=== PATIENT | female | born 1940 | race Caucasian/White ===

== ENCOUNTER 2018-07-04 20:07 | Inpatient (IN) | payer MEDICARE ==
[~2018-07-04] VITALS: Ht 162.6 cm; Wt 103.6 kg
[~2018-07-04 20:07] MED LIST: ACTOS PO; ACTOS30 MG PO; DIGOXIN125 MCG PO; EXFORGE 10-3201 EACH PO; GLIMEPIRIDE4 MG PO; HYDRALAZINE HCL50 MG PO; HYDROCHLOROTH12.5 MG PO; INVOKANA PO; KOMBIGLYZE XR1 EAC1 PO; LASIX20 MG PO; LOVASTATIN40 MG PO; ONGLYZA5 MG PO; PLAVIX75 MG PO; POTASSIUM CHLOR8 ME1 PO; TOPROL XL50 MG PO; TRADJENTA5 MG PO
--- NOTE | 2018-07-04 21:35 | NUR ---
RADIOLOGY AT BEDSIDE AT THIS TIME.
--- NOTE | 2018-07-04 22:13 | Diagnostic Imaging Report ---
EXAMINATION: CHEST SINGLE (PORTABLE) INDICATION: sob COMPARISON: None FINDINGS: AP view TUBES and LINES: Left chest wall dual-lead cardiac pacing device. LUNGS: Interstitial and bibasilar airspace opacities. PLEURA: Small bilateral pleural effusions. No pneumothorax. HEART AND MEDIASTINUM: Mild to moderate enlargement of the cardiac silhouette. There are atherosclerotic calcifications within the aorta. BONES AND SOFT TISSUES: No acute osseous lesion. Soft tissues are unremarkable. UPPER ABDOMEN: No free air under the diaphragm. IMPRESSION: Cardiomegaly with interstitial edema and small bilateral pleural effusions. Signed by: DR. Tam Alvarez MD on 07/04/2018 10:10 PM
[2018-07-04 23:24] LABS: BASOPHILS % 0.3 % (0.0-1.0); EOSINOPHILS # (AUTO) 0.1 (0.0-0.4); EOSINOPHILS % 0.9 % (0.0-6.0); HEMATOCRIT 34.5 % (34.2-44.1); HEMOGLOBIN 10.9 g/dL (12.0-16.0); LYMPHOCYTES % 10.3 % (18.0-39.1); MEAN CORPUSCULAR HEMOGLOBIN 28.1 pg (28-32); MEAN CORPUSCULAR HGB CONC 31.6 g/dL (31-35); MEAN CORPUSCULAR VOLUME 88.9 fL (81-99); MONOCYTES # (AUTO) 0.8 (0.2-0.8); MONOCYTES % 8.6 % (4.4-11.3); NEUTROPHILS # (AUTO) 7.3 (2.1-6.9); NEUTROPHILS % 79.7 % (38.7-80.0); PLATELET COUNT 244 x10e3/uL (140-360); RED BLOOD COUNT 3.88 x10e6/uL (3.6-5.1)
[2018-07-04 23:32] LABS: COLOR,URINE YELLOW (YELLOW)
[2018-07-04 23:33] LABS: BILIRUBIN,URINE NEGATIVE (NEGATIVE); CLARITY,URINE CLEAR (CLEAR); KETONES,URINE NEGATIVE (NEGATIVE); LEUKOCYTE ESTERASE ,URINE 1+ (NEGATIVE); NITRITE,URINE NEGATIVE (NEGATIVE); PROTEIN,URINE DIPSTICK TRACE (NEGATIVE); URINE UROBILINOGEN 0.2 mg/dL (0.2 - 1)
[2018-07-04 23:36] LABS: BACTERIA,URINE FEW /HPF; EPITHELIAL CELLS,URINE MANY /LPF; RBC,URINE 0-5 /HPF (0-5)
[2018-07-04 23:37] LABS: YEAST,URINE FEW
[2018-07-04 23:48] LABS: ALBUMIN 3.2 g/dL (3.5-5.0); ALBUMIN/GLOBULIN RATIO 0.8 (0.8-2.0); ANION GAP 12.7 mmol/L (8-16); CALCIUM 9.2 mg/dL (8.4-10.2); CREATININE, SERUM 1.15 mg/dL (0.57-1.11); POTASSIUM 3.7 mmol/L (3.5-5.1)
[2018-07-05] VITALS (9 sets, daily range): BP systolic 137–181; BP diastolic 63–77
[2018-07-05] MEDS ORDERED: FUROSEMIDE INJ 10 MG/ML 4 ML VIAL IV ONE (00:15)
[2018-07-05] MEDS ORDERED: SODIUM CHLORIDE FLUSH 10 ML SYR INJ PRN (00:15)
[2018-07-05] MEDS ORDERED: ONDANSETRON HCL INJ 2MG/ML 2ML 2 MG/ML VIAL IV PRN (00:15)
[2018-07-05] MEDS ORDERED: DEXTROSE 50% SYRINGE 50 ML IV PRN (00:15)
--- OUTSIDE RECORDS SUMMARY | 2018-07-05 00:21 | XMS REPORT ---
Author [facility] Address Unknown Phone Unavailable Care Team Providers Care Fraud Prevention Analyst Name Role Phone Yisel QUEEN Unavailable Unavailable Problems This patient has no known problems. Allergies, Adverse Reactions, Alerts This patient has no known allergies or adverse reactions. Medications This patient has no known medications. Results Test Description Test Time Test Comments Text Results Atomic Results Result Comments CHEST SINGLE (PORTABLE) 2018-07-04 22:08:00 [place] [address] Patient Name: GLENDA VALDES MR #: [id number] : 1940 Age/Sex: 77/F Req #: [id number] Adm Physician: Ordered by: DUONG QUEEN MD Report #: [id number] Location: ER Room/Bed: Procedure: [id number] DX/CHEST SINGLE (PORTABLE) Exam Date: 07/04/18 Exam Time: 2129 REPORT STATUS: Signed EXAMINATION: CHEST SINGLE (PORTABLE) I NDICATION: sob COMPARISON: None FINDINGS: AP view TUBES and LINES: Left chest wall dual-lead cardiac pacing device. LUNGS: Interstitial and bibasilar airspace opacities. PLEURA: Small bilateral pleural effusions. No pneumothorax. HEART AND MEDIASTINUM: Mild to moderate enlargement of the cardiac silhouette. There are atherosclerotic calcifications within the aorta. BONES AND SOFT TISSUES: No acute osseous lesion. Soft tissues are unremarkable. UPPER ABDOMEN: No free air under the diaphragm. IMPRESSION: Cardiomegaly with interstitial edema and small bilateral pleural effusions. Signed by: DR. Tam Alvarez MD on 07/04/2018 10:10 PM Dictated By: TAM ALVAREZ MD 09 Transcribed By: MICHELLE on 07/04/182209 COPY TO: DUONG QUEEN MD
[2018-07-05] MEDS: CEFTRIAXONE SOD 1 GM/NS 50 ML 50 ML IV SCH (00:55)
--- NOTE | 2018-07-05 01:45 | NUR ---
PATIENT RECEIVED FROM EMERGENCY ROOM VIA STRETCHER. ALERT AND ORIENTED. PATIENT IS PLEASANT AND CONVERSANT. O2 AT 3L/MIN VIA NASAL CANNULA. ASSISTED IN BED. ORIENTED TO ROOM. CALL LIGHT WITHIN REACH AND INSTRUCTED TO USE WHEN NEEDED.
[2018-07-05] MEDS: ALBUTEROL/IPRATROPIUM 3 ML NEB NEB SCH ×6 (02:11→23:19)
--- NOTE | 2018-07-05 06:30 | NUR ---
KITCHEN MADE AWARE OF 1L FLUID RESTRICTION FOR PATIENT.
[2018-07-05] MEDS ORDERED: AMLODIPINE PO SCH (06:45)
[2018-07-05] MEDS ORDERED: VALSARTAN PO SCH (06:45)
[2018-07-05] MEDS: INSULIN REGULAR, HUMAN 100 UNIT/1 ML 3ML VIAL SQ SCH ×4 (07:30→21:00)
--- NOTE | 2018-07-05 07:45 | History and Physical ---
The patient is a 77-year-old female comes with extremity weakness and shortness of breath. HISTORY OF PRESENT ILLNESS: Ms. Shane Duran with a history of CHF, history of pacemaker, was in her usual state of health until the patient was extremely weak and could not stand up, but did have some shortness of breath. Ambulation was difficult and was not able to walk from her bed to the bathroom with a walker. EMS was activated and the patient comes in with exacerbation of congestive heart failure. PAST MEDICAL HISTORY: History of CHF, history of pacemaker placement, history of sick sinus syndrome, history of hypertension, history of diabetes mellitus, and hyperlipidemia. MEDICATIONS: Include Exforge 10/320 mg once a day, clopidogrel 75 mg daily, digoxin 125 mcg, Lasix 20 mg daily, glimepiride 4 mg daily, hydralazine 100 mg 3 times a day, hydrochlorothiazide 12.5 mg daily, Tradjenta 5 mg daily, lovastatin 40 mg daily, and Toprol-XL 50 mg daily. The patient also takes Invokana 100 mg daily. PAST SURGICAL HISTORY: Includes history of left knee replacement, hysterectomy, cholecystectomy, and history of pacemaker placement. SOCIAL HISTORY: No EtOH. No IV drug abuse. Lives at home. Uses a walker to ambulate. No smoking history either. ALLERGIES: NO KNOWN DRUG ALLERGIES. REVIEW OF SYSTEMS: Negative for chest pain. Positive for some shortness of breath. Positive for extreme weakness, fatigue, and tiredness. No nausea, vomiting, or diarrhea. No constipation. No rectal bleeding. No hematochezia. No hematemesis. No diplopia. No blurry vision. No paresthesias. No hyperesthesia either. PHYSICAL EXAMINATION: VITAL SIGNS: Temperature is 96.7, pulse of 67, respirations of 19, blood pressure is 149/66, pulse oximetry of 91% on 4 L of oxygen. GENERAL: The patient is morbidly obese, using accessory muscles. HEENT: Normocephalic, atraumatic. CVS: S1, S2 normal. NECK: No JVD present. LUNGS: Decreased air entry into all lung bases. Positive for crackles in lower bases. HEART: Regular rate and rhythm. ABDOMEN: Nontender, nondistended. EXTREMITIES: No clubbing, no cyanosis, and 2+ edema present. NEUROLOGIC: Alert and oriented x3. No sensory motor deficits noted. IMAGING: EKG paced rhythm, wide QRS complex, and intraventricular conduction delay noticed. LABORATORY DATA: The patient's laboratory values, sodium is 140, potassium 3.7, BUN of 39, creatinine of 1.15. Alkaline phos is 189 with a BNP of 1005. Liver enzymes are normal and first set of cardiac enzymes has been normal. Hematology, white count is 9.20, hemoglobin of 10.9, hematocrit of 34.5. Urine showed 11 to 20 white count, nitrites and leuko esterase 1 positive. Chest x-ray shows cardiomegaly with interstitial edema and small bilateral pleural effusions. ASSESSMENT: 1. Acute exacerbation of congestive heart failure, [id number] systolic heart failure. Out plan is to continue with diuresis. 2. Acute kidney injury in setting of chronic kidney injury. We will continue to monitor her creatinine level. 3. Anemia of chronic disease. We will continue to check her iron level. 4. Hypertension, hyperlipidemia, and diabetes mellitus. We will continue with her home medications. Put her on insulin sliding scale. Strict I's and O's will be instituted and the patient will be on a low-salt diet and also fluid restriction. We will continue to monitor the patient on echocardiogram and also consult Dr. Ishmael Kamara, who is her locomotive pipe fitter. The patient does have positive urine nitrites. The patient has been put on antibiotics. She is on ceftriaxone q.24 hours 1 g. We will continue monitoring her microbiology status with urine cultures. Further recommendation and clinical course, the patient will be per inpatient and possible discharge in 1 to 2 days depending on the fluid balance. MD GAL Kearney/MODL /[id number]
[2018-07-05] MEDS ORDERED: VALACYCLOVIR HCL 500 MG TAB PO SCH (09:00)
[2018-07-05] MEDS: VALSARTAN 160 MG TAB PO SCH (09:28)
[2018-07-05] MEDS: FUROSEMIDE INJ 10 MG/ML 4 ML VIAL IV SCH ×2 (09:28→21:52)
[2018-07-05] MEDS: VANCOMYCIN 1GM/NS 250 ML 250 ML IV SCH (09:28)
[2018-07-05] MEDS: HYDRALAZINE HCL 100 MG TABLET PO SCH ×3 (09:29→21:52)
[2018-07-05] MEDS: METOPROLOL SUCCINATE 50 MG TAB XL PO SCH ×2 (09:29→17:40)
[2018-07-05] MEDS: CLOPIDOGREL BISULFATE 75 MG TAB PO SCH (09:29)
[2018-07-05] MEDS: SIMVASTATIN 20 MG TAB PO SCH (09:29)
[2018-07-05] MEDS: DIGOXIN 0.125 MG TAB PO SCH (09:29)
[2018-07-05] MEDS ORDERED: METOPROLOL TARTRATE INJ 1 MG/ML VIAL IV PRN (12:30)
[2018-07-05] MEDS ORDERED: HYDRALAZINE HCL 20 MG/ML VIAL IV PRN (12:30)
[2018-07-05 13:22] LABS: CHOL/HDL RATIO 2.9 (3.0-3.6); MAGNESIUM 1.8 MG/DL (1.3-2.1)
[2018-07-05 13:41] LABS: THYROID STIMULATING HORMONE 2.394 uIU/mL (0.350-4.940)
[2018-07-05 18:47] LABS: CREATINE KINASE MB 3.8 ng/mL (0-5.0)
[2018-07-05] MEDS: AMLODIPINE BESYLATE 10 MG TAB PO SCH (21:52)
[2018-07-06] VITALS (8 sets, daily range): BP systolic 117–150; BP diastolic 54–67
[2018-07-06] MEDS: CEFTRIAXONE SOD 1 GM/NS 50 ML 50 ML IV SCH (00:30)
[2018-07-06] MEDS ORDERED: SODIUM CHLORIDE 0.9% 250ML 250 ML ONE (00:34)
[2018-07-06] MEDS: ALBUTEROL/IPRATROPIUM 3 ML NEB NEB SCH ×6 (03:00→23:10)
[2018-07-06 05:53] LABS: BASOPHILS % 0.2 % (0.0-1.0); EOSINOPHILS # (AUTO) 0.1 (0.0-0.4); EOSINOPHILS % 1.3 % (0.0-6.0); HEMATOCRIT 33.3 % (34.2-44.1); HEMOGLOBIN 10.4 g/dL (12.0-16.0); LYMPHOCYTES # (AUTO) 0.8 (1.0-3.2); LYMPHOCYTES % 9.3 % (18.0-39.1); MEAN CORPUSCULAR HEMOGLOBIN 28.2 pg (28-32); MEAN CORPUSCULAR HGB CONC 31.2 g/dL (31-35); MEAN CORPUSCULAR VOLUME 90.2 fL (81-99); MONOCYTES # (AUTO) 0.8 (0.2-0.8); MONOCYTES % 9.6 % (4.4-11.3); NEUTROPHILS # (AUTO) 6.5 (2.1-6.9); NEUTROPHILS % 79.2 % (38.7-80.0); PLATELET COUNT 223 x10e3/uL (140-360); RED BLOOD COUNT 3.69 x10e6/uL (3.6-5.1); RED CELL DISTRIBUTION WIDTH 15.3 % (11.7-14.4)
[2018-07-06 06:11] LABS: CALCIUM 9.1 mg/dL (8.4-10.2); CREATININE, SERUM 1.07 mg/dL (0.57-1.11)
[2018-07-06 06:37] LABS: FREE THYROXINE INDEX 2.6617 (1.4-3.8); THYROID STIMULATING HORMONE 3.008 uIU/mL (0.350-4.940)
[2018-07-06] MEDS: INSULIN REGULAR, HUMAN 100 UNIT/1 ML 3ML VIAL SQ SCH ×4 (07:30→20:58)
[2018-07-06] MEDS: METOPROLOL SUCCINATE 50 MG TAB XL PO SCH ×2 (09:35→16:49)
[2018-07-06] MEDS: VALSARTAN 160 MG TAB PO SCH (09:35)
[2018-07-06] MEDS: VANCOMYCIN 1GM/NS 250 ML 250 ML IV SCH (09:35)
[2018-07-06] MEDS: SIMVASTATIN 20 MG TAB PO SCH (09:35)
[2018-07-06] MEDS: DIGOXIN 0.125 MG TAB PO SCH (09:35)
[2018-07-06] MEDS: FUROSEMIDE INJ 10 MG/ML 4 ML VIAL IV SCH ×2 (09:35→20:57)
[2018-07-06] MEDS: CLOPIDOGREL BISULFATE 75 MG TAB PO SCH (09:35)
[2018-07-06] MEDS: HYDRALAZINE HCL 100 MG TABLET PO SCH ×3 (09:35→20:57)
--- NOTE | 2018-07-06 10:21 | Progress Note ---
DATE: SUBJECTIVE: The patient is admitted to the hospital for acute exacerbation of congestive heart failure. The patient is currently asymptomatic. The patient is on 3L of oxygen. No chest pain noted. No nausea, vomiting, or diarrhea. No headaches. OBJECTIVE: VITAL SIGNS: Temperature is 98.4, pulse of 64, respirations of 18, and blood pressure is 137/63. The patient is saturating at 94% to 95% on 3 L of nasal cannula. HEENT: Normocephalic and atraumatic. Pupils are reactive. CVS: S1 and S2 normal. No JVD present. LUNGS: Decreased air entry. Positive for crackles at lung bases. Positive for . ABDOMEN: Nontender and nondistended. EXTREMITIES: Positive for 2+ edema. MEDICATIONS: 1. Rocephin. 2. Amlodipine. 3. Hydralazine. 4. Furosemide. 5. Insulin. 6. Metoprolol. 7. Simvastatin. 8. Digoxin. 9. . 10. Vancomycin. One dose given of her vancomycin and hydralazine as needed. LABORATORY VALUES: White count is 8.20, hemoglobin of 10.4, and hematocrit of 33.3. Chemistries are pending. Toxicology, digoxin level 0.87. Urine was positive for leukocyte esterase. Echocardiogram shows an EF of 60% with concentric LVH, pleural effusion, mild MR, AK, and [id number]-tclbcbrn tricuspid regurgitation. ASSESSMENT AND PLAN: 1. Acute exacerbation of congestive heart failure, chronic diastolic failure. Continue with Lasix. 2. Acute kidney injury. Continue with monitoring her creatinine levels. 3. Anemia of chronic disease. Iron panel has been checked. 4. Hypertension. 5. Hyperlipidemia. 6. Diabetes mellitus. Continue on same medication. Strict Is and Os. The patient has been kept on a [address] Kamara has been consulted. Further recommendation and clinical course. We will keep her on IV Lasix on daily basis. MD GAL Kearney/MODL /[id number]
[2018-07-06 13:02] LABS: CHOL/HDL RATIO 2.5 (3.0-3.6); PHOSPHORUS 3.5 MG/DL (2.3-4.7)
[2018-07-06] MEDS: AMLODIPINE BESYLATE 10 MG TAB PO SCH (20:57)
[2018-07-07] VITALS (7 sets, daily range): BP systolic 112–130; BP diastolic 52–60
[2018-07-07] MEDS: CEFTRIAXONE SOD 1 GM/NS 50 ML 50 ML IV SCH (00:13)
[2018-07-07] MEDS: ALBUTEROL/IPRATROPIUM 3 ML NEB NEB SCH ×6 (02:55→23:00)
[2018-07-07 06:17] LABS: ANION GAP 11.6 mmol/L (8-16); CALCIUM 8.6 mg/dL (8.4-10.2); CREATININE, SERUM 1.05 mg/dL (0.57-1.11); POTASSIUM 3.6 mmol/L (3.5-5.1)
--- NOTE | 2018-07-07 07:12 | NUR ---
REPORT GIVEN TO ONCOMING NURSE.WALKING ROUNDS MADE.PT RESTING IN BED WITH NO S/S OF DISTRESS.
--- NOTE | 2018-07-07 07:25 | NUR ---
Received patient and walking rounds complete. Patient awake at this time. No signs of distress. Call light in reach, will continue to monitor.
[2018-07-07] MEDS: INSULIN REGULAR, HUMAN 100 UNIT/1 ML 3ML VIAL SQ SCH ×4 (07:30→21:55)
[2018-07-07] MEDS: DIGOXIN 0.125 MG TAB PO SCH (08:04)
[2018-07-07] MEDS: CLOPIDOGREL BISULFATE 75 MG TAB PO SCH (08:04)
[2018-07-07] MEDS: FUROSEMIDE INJ 10 MG/ML 4 ML VIAL IV SCH ×2 (08:04→21:55)
[2018-07-07] MEDS: VANCOMYCIN 1GM/NS 250 ML 250 ML IV SCH (08:04)
[2018-07-07] MEDS: HYDRALAZINE HCL 100 MG TABLET PO SCH ×3 (08:04→21:55)
[2018-07-07] MEDS: VALSARTAN 160 MG TAB PO SCH (08:04)
[2018-07-07] MEDS: METOPROLOL SUCCINATE 50 MG TAB XL PO SCH ×2 (08:05→17:05)
[2018-07-07] MEDS: SIMVASTATIN 20 MG TAB PO SCH (08:05)
--- NOTE | 2018-07-07 09:33 | NUR ---
Removed right hand IV d/t infiltration. New IV started, Left AC 20 gauge.
[2018-07-07] MEDS ORDERED: ONDANSETRON HCL 4 MG ORAL DISINTEGRATING TAB PO PRN (09:45)
--- NOTE | 2018-07-07 09:45 | NUR ---
Patient A/O X3, even respirations, unlabored on 3LNC. Patient is ambulatory with assistance. Left AC 20 gauge IV SL. 2+ Pitting edema to bilateral lower and upper extremities. Tele #[id number] paced. Strict I/O's and 1 liter fluid restriction. Call light in reach, will continue to monitor.
--- NOTE | 2018-07-07 10:55 | NUR ---
EDUCATED ABOUT IMM, SIGNED, FILED IN CHART, WITH COPY LEFT WITH FAMILY AT BEDSIDE.
--- NOTE | 2018-07-07 13:05 | NUR ---
pt arrived via wheelchair, no acute distress noted, denies pain and SOB. 2lpm O2 via NC, however pt is noncompliant and she states she removes NC at times. transferred safely into bed, oriented to room and use of call light. call light placed within reach and instructed to call for assistance.
--- NOTE | 2018-07-07 13:10 | NUR ---
Transferred patient to room 207 via wheelchair. Patient gathered all personal belongings, no signs of distress during transfer.
[2018-07-08] VITALS: BP 142/53
[2018-07-08] MEDS ORDERED: SODIUM CHLORIDE 0.9% 250ML 250 ML ONE (00:06)
[2018-07-08] MEDS: CEFTRIAXONE SOD 1 GM/NS 50 ML 50 ML IV SCH (00:17)
[2018-07-08] MEDS: ALBUTEROL/IPRATROPIUM 3 ML NEB NEB SCH ×4 (03:00→15:00)
[2018-07-08 04:00] VITALS: BP 114/48
[2018-07-08] MEDS: INSULIN REGULAR, HUMAN 100 UNIT/1 ML 3ML VIAL SQ SCH ×3 (07:30→17:04)
[2018-07-08 08:30] VITALS: BP 130/58
[2018-07-08 09:55] VITALS: BP 130/58
[2018-07-08] MEDS: METOPROLOL SUCCINATE 50 MG TAB XL PO SCH ×2 (09:55→17:01)
[2018-07-08] MEDS: VALSARTAN 160 MG TAB PO SCH (09:55)
[2018-07-08] MEDS: SIMVASTATIN 20 MG TAB PO SCH (09:55)
[2018-07-08] MEDS: HYDRALAZINE HCL 100 MG TABLET PO SCH ×2 (09:55→15:08)
[2018-07-08] MEDS: DIGOXIN 0.125 MG TAB PO SCH (09:55)
[2018-07-08] MEDS: CLOPIDOGREL BISULFATE 75 MG TAB PO SCH (09:55)
[2018-07-08] MEDS: FUROSEMIDE INJ 10 MG/ML 4 ML VIAL IV SCH (09:55)
[2018-07-08 12:00] VITALS: BP 137/64
[2018-07-08 16:00] VITALS: BP 137/53
--- NOTE | 2018-07-09 07:01 | Discharge Summary ---
DISCHARGE DIAGNOSES: 1. Acute on chronic systolic heart failure. 2. Chronic kidney disease stage 3. 3. Diabetes. 4. Hypertension. 5. Urinary tract infection with fungal infection. HISTORY OF PRESENT ILLNESS AND HOSPITAL COURSE: The patient came in with generalized weakness, was found to have acute on chronic systolic heart failure, where she was by then placed on appropriate medical treatment, where she noticed a significant improvement in just few days. She noticed evidence of urinary tract infection, was initially placed on antibiotics with the urine culture did rule out yeast, so she was then discharged with p.o. Diflucan. She had lower extremity Dopplers are negative for DVT. She had a little bit of left upper extremity swelling from an IV infiltration that showed no evidence of DVT in the left upper arm. So at the time of discharge, she was discharged with continuation of home medications. Follow up in 1-2 weeks with me. New medication is Diflucan 100 mg p.o. daily for 10 days for the fungal urinary tract infection. Please see hospital chart for full details. MD SANDY Garcia/ADI /[id number]
== END 2018-07-08 17:30 | disposition home or self-care (01) | DRG 291 ==
LOC: ER 20:07 → ERHOLD 07-05 00:18 → MED/SURG 07-05 01:46 → MED/SURG2 07-07 13:15
PROVIDERS: ADMIT Internal Medicine; ATTEND Internal Medicine
DX: I13.0 Hypertensive heart and chronic kidney disease with heart failure and stage 1 through stage 4 chronic kidney disease, or unspecified chronic kidney disease (principal); I50.43 Acute on chronic combined systolic (congestive) and diastolic (congestive) heart failure; N17.9 Acute kidney failure, unspecified; N18.9 Chronic kidney disease, unspecified; E11.22 Type 2 diabetes mellitus with diabetic chronic kidney disease; Z79.4 Long term (current) use of insulin
CPT/HCPCS: 36415; 71045; 80048; 80053; 80061; 80162; 80202; 81001; 82306; 82550; 82553; 82948; 83735; 83880; 84100; 84436; 84443; 84479; 84484; 84550; 85025; 85651; 87086; 93005; 93306; 93970; 93971; 94640; 99285; J0696; J1940; J3370; J7050

== ENCOUNTER 2018-07-11 21:57 | Inpatient (IN) | payer MEDICARE ==
[~2018-07-11] VITALS: Ht 162.6 cm; Wt 103.4 kg
--- NOTE | 2018-07-11 22:48 | Diagnostic Imaging Report ---
Examination: Single AP view of the chest. COMPARISON: None. INDICATION: Fall DISCUSSION: Lines/tubes: Dual-lead pacemaker Lungs: Pulmonary venous congestion Pleura: Small effusions. Heart and mediastinum: Cardiomegaly Bones and soft tissues: No acute bony abnormalities. IMPRESSION: Cardiomegaly with pulmonary venous congestion and small effusions. Signed by: Dr. Jose Carlos Briggs M.D. on 07/11/2018 10:45 PM
--- NOTE | 2018-07-11 22:49 | Diagnostic Imaging Report ---
Exam: AP pelvis History: Pain and fall Comparison: None. Findings: No fracture or malalignment. Bone demineralization. Degenerative arthrosis of the hips. Calcified pelvic fibroid. Impression: No acute osseous abnormality Signed by: Dr. Jose Carlos Briggs M.D. on 07/11/2018 10:46 PM
[2018-07-11 23:34] LABS: BASOPHILS # (AUTO) 0.1 (0.0-0.1); BASOPHILS % 0.5 % (0.0-1.0); EOSINOPHILS # (AUTO) 0.1 (0.0-0.4); EOSINOPHILS % 0.6 % (0.0-6.0); HEMATOCRIT 35.8 % (34.2-44.1); HEMOGLOBIN 10.9 g/dL (12.0-16.0); LYMPHOCYTES # (AUTO) 0.7 (1.0-3.2); LYMPHOCYTES % 7.5 % (18.0-39.1); MEAN CORPUSCULAR HGB CONC 30.4 g/dL (31-35); MONOCYTES # (AUTO) 0.8 (0.2-0.8); MONOCYTES % 7.8 % (4.4-11.3); NEUTROPHILS % 83.2 % (38.7-80.0); PLATELET COUNT 109 x10e3/uL (140-360); RED BLOOD COUNT 3.89 x10e6/uL (3.6-5.1); RED CELL DISTRIBUTION WIDTH 15.6 % (11.7-14.4)
[2018-07-11 23:48] LABS: INR 0.99; PROTHROMBIN TIME 13.6 seconds (11.9-14.5)
[2018-07-11 23:49] LABS: PARTIAL THROMBOPLASTIN TIME 23.9 seconds (23.8-35.5)
[2018-07-11 23:56] LABS: ALBUMIN 3.3 g/dL (3.5-5.0); ALBUMIN/GLOBULIN RATIO 0.7 (0.8-2.0); ANION GAP 16.8 mmol/L (8-16); CALCIUM 9.2 mg/dL (8.4-10.2); CREATININE, SERUM 1.45 mg/dL (0.57-1.11); POTASSIUM 4.8 mmol/L (3.5-5.1)
[2018-07-12 00:02] LABS: CREATINE KINASE MB 2.7 ng/mL (0-5.0)
[2018-07-12 00:32] LABS: BILIRUBIN,URINE NEGATIVE (NEGATIVE); CLARITY,URINE CLEAR (CLEAR); COLOR,URINE YELLOW (YELLOW); KETONES,URINE NEGATIVE (NEGATIVE); LEUKOCYTE ESTERASE ,URINE NEGATIVE (NEGATIVE); NITRITE,URINE NEGATIVE (NEGATIVE); PROTEIN,URINE DIPSTICK NEGATIVE (NEGATIVE); URINE UROBILINOGEN 0.2 mg/dL (0.2 - 1)
[2018-07-12 00:49] LABS: AMORPHOUS SEDIMENT,URINE FEW (FEW); BACTERIA,URINE MANY /HPF; EPITHELIAL CELLS,URINE FEW /LPF; RBC,URINE 0-5 /HPF (0-5); WBC,URINE (MAN) 0-5 /HPF (0-5)
[2018-07-12] MEDS ORDERED: FUROSEMIDE INJ 10 MG/ML 4 ML VIAL IV ONE (01:00)
[2018-07-12] MEDS ORDERED: DEXTROSE 50% SYRINGE 50 ML IV PRN (01:15)
[2018-07-12] MEDS ORDERED: SODIUM CHLORIDE FLUSH 10 ML SYR INJ PRN (01:15)
[2018-07-12] MEDS ORDERED: FLUCONAZOLE100 MG PO (02:57)
[2018-07-12] MEDS ORDERED: GLIMEPIRIDE 2 MG TAB PO SCH (08:00)
[2018-07-12] MEDS: INSULIN REGULAR, HUMAN 100 UNIT/1 ML 3ML VIAL SQ SCH ×4 (08:01→21:43)
[2018-07-12 08:49] LABS: DIGOXIN 1.01 ng/mL (0.8-2.0); THYROID STIMULATING HORMONE 2.992 uIU/mL (0.350-4.940)
[2018-07-12] MEDS ORDERED: FUROSEMIDE 20 MG TAB PO SCH (09:00)
[2018-07-12] MEDS: FUROSEMIDE INJ 10 MG/ML 4 ML VIAL IV SCH ×2 (09:01→17:55)
[2018-07-12] MEDS: SIMVASTATIN 20 MG TAB PO SCH (09:01)
[2018-07-12] MEDS: CLOPIDOGREL BISULFATE 75 MG TAB PO SCH (09:01)
[2018-07-12] MEDS: DIGOXIN 0.125 MG TAB PO SCH (09:01)
[2018-07-12] MEDS: FLUCONAZOLE 100 MG TAB PO SCH (09:01)
[2018-07-12] MEDS: METOPROLOL SUCCINATE 50 MG TAB XL PO SCH (09:01)
[2018-07-12] MEDS: POTASSIUM CHLORIDE 10MEQ EA PO SCH ×2 (09:02→17:55)
[2018-07-12] MEDS: LISINOPRIL 2.5 MG TAB PO SCH (09:02)
--- NOTE | 2018-07-12 12:40 | Consultation ---
DATE OF CONSULTATION: REASON FOR CONSULT: Atrial fibrillation. HISTORY OF PRESENT ILLNESS: Ms. Mccray is a 77-year-old lady with past medical history as listed below, who reports she was trying to get from her den towards bedroom with a walker when she tripped and fell to the ground. There was no loss of consciousness. No chest pain or shortness of breath. She fell on her knees. EMS was called. O2 saturation was 84, and she was brought to the hospital. The patient states she feels fine and has mentioned she denies any chest pain, shortness of breath or palpitations and she normally follows up with Dr. Ishmael Kamara. She has a pacemaker implanted in the past. REVIEW OF SYMPTOMS: CONSTITUTIONAL: Has some fatigue and weakness. HEENT: No headache, blurring of vision, seizure, or syncope. CARDIOVASCULAR: No chest pain, dyspnea, orthopnea, PND, or palpitations, however, the patient was noted to be short of breath by EMS. RESPIRATORY: No cough, fever or expectoration. GI: No abdominal pain, vomiting, or diarrhea. : No dysuria, frequency, or incontinence. ALLERGIES: NO KNOWN DRUG ALLERGIES. MEDICATIONS: See list. PAST MEDICAL HISTORY: 1. History of hypertension. 2. History of CHF. 3. History of diabetes mellitus. 4. History of UTI. 5. History of hyperlipidemia. PAST SURGICAL HISTORY: 1. History of permanent pacemaker insertion, thinks it is about three years back. 2. History of cataract surgery. 3. History of cholecystectomy. 4. History of tonsillectomy. SOCIAL HISTORY: Does not smoke or drink. FAMILY HISTORY: Noncontributory. PHYSICAL EXAMINATION: GENERAL: Slightly obese lady, alert, oriented, not in any obvious distress. VITAL SIGNS: Heart rate is 76, blood pressure 135/56, respiratory rate is 18, temperature is 97.7. HEENT: Atraumatic. NECK: No JVD, bruits, thyromegaly, or lymphadenopathy. CARDIOVASCULAR: First and second heart sounds heard. No murmurs, rubs, or gallops appreciated. CHEST: Decreased air entry at the bases. No adventitious sounds appreciated. Pacemaker generator, left upper chest. ABDOMEN: Soft, nontender. EXTREMITIES: No edema. LABS: WBC is 9.6, hemoglobin 10.9, hematocrit 35.8, platelets are 109. Sodium is 135, potassium 4.8, chlorides is 100, BUN is 46, creatinine 1.4, total bilirubin is 0.7, AST is 40, ALT is 26, alkaline phosphatase is 206. Troponins 0.047, 0.052. BNP is 1206 and 579. Chest x-ray shows cardiomegaly with pulmonary venous congestion and small effusions. EKG shows atrial fibrillation at 67 beats per minute with intraventricular conduction delay, left axis deviation secondary ST-T changes. Pelvic x-ray, no acute osseous abnormality. IMPRESSION: 1. Congestive heart failure. 2. Atrial fibrillation. 3. Hypertension. 4. Diabetes mellitus. 5. History of permanent pacemaker insertion. 6. History of hyperlipidemia. 7. History of urinary tract infection. PLAN: 1. IV diuresis. 2. Get echocardiogram to assess LV function and valvular function. 3. Continue with her current medications. She is on beta-blockers, digoxin, clopidogrel. Check dig level. 4. We will start her on low dose ALBERT inhibitors. 5. Further cardiac workup depending on clinical course. 6. Discussed my impression and plan of management with the patient. As always, I appreciate and thank you very much for referral. MD JAZZMINE Hopson/ADI /[id number] MTDReed
--- NOTE | 2018-07-12 13:15 | History and Physical ---
REASON FOR ADMISSION: Chronic atrial fibrillation, CHF, hypoxia. HISTORY OF PRESENT ILLNESS: The patient is a 77-year-old lady, who unfortunately fell and came to the emergency room requesting evaluation. She is noted to be hypoxic and chest x-ray showing pulmonary congestion. Therefore she was re-admitted for further evaluation and treatment. PAST MEDICAL HISTORY: Significant for CHF, AFib, hypertension, diabetes, chronic kidney disease stage 3. MEDICATIONS: See MAR. ALLERGIES: NONE. SOCIAL HISTORY: Nonsmoker and nondrinker. Lives at home. FAMILY HISTORY: Noncontributory. PHYSICAL EXAMINATION: VITAL SIGNS: Temperature is 98.6, blood pressure 136/74, pulse 74, sats 93% on 3 L. GENERAL: No apparent distress, lying in bed. NECK: Supple. CARDIOVASCULAR: Regular rate and rhythm. LUNGS: Decreased breath sounds bilaterally. ABDOMEN: Good bowel sounds. Soft, nontender. EXTREMITIES: No clubbing or cyanosis. NEUROLOGIC: Nonfocal. ASSESSMENT AND PLAN: 1. Acute on chronic congestive heart failure. Continue with current care and consult Cardiology. 2. Atrial fibrillation. Continue with current care and Cardiology to see her. Continue with telemetry. 3. . 4. Diabetes. Continue with her medications and monitoring of sugar. 5. Chronic kidney disease tee 3. We will continue to monitor. 6. Hypertension. Continue with her medications. Please see hospital chart for full details. MD SANDY Garcia/ADI /[id number]
--- NOTE | 2018-07-12 13:16 | NUR ---
ECHOVASCULAR TECH AT BEDSIDE AT THIS TIME FOR EXAM.
--- NOTE | 2018-07-12 14:45 | NUR ---
received report from cindy . awaiting for pt to arrive to unit
--- NOTE | 2018-07-12 14:45 | NUR ---
pt arrive to unit aa0x3. is on 3l at this time, denies pain. pt is in no s/s of distress, call light left at bedside instructed pt i would be back to do an assessment. pt verlbalized understanding, side railsx2, bed wheels locked ,call light is within easy reach, instructed to call for assistance if needed
[2018-07-12 15:00] VITALS: BP 146/65
--- NOTE | 2018-07-12 15:00 | NUR ---
assessment complete . pt is aa0x3. pt has a buttock ulcer, perineal area is red and macerated, lower abd folds are red and macerated. consulted wound care per protocol to asses pt skin integrity. pt is on 3l nc , no sob noted or reported. pt has pitting edema to lower legs 3+. instructed pt she is on strict i+o for lasix therapy, pt understand treatment of care. will continue to monitor at this time. side railsx2, bed wheels locked, call light is within easy reach, instructed call before getting up out bed or needing assistance
[2018-07-12 15:45] VITALS: BP 146/65
[2018-07-12 17:32] VITALS: BP 146/65
[2018-07-12 19:40] VITALS: BP 159/67
[2018-07-12 21:00] VITALS: BP 159/67
[2018-07-13] VITALS (8 sets, daily range): BP systolic 129–164; BP diastolic 60–67
[2018-07-13 07:06] LABS: BASOPHILS % 0.4 % (0.0-1.0); EOSINOPHILS # (AUTO) 0.1 (0.0-0.4); EOSINOPHILS % 1.5 % (0.0-6.0); HEMATOCRIT 31.2 % (34.2-44.1); HEMOGLOBIN 9.7 g/dL (12.0-16.0); LYMPHOCYTES # (AUTO) 0.8 (1.0-3.2); LYMPHOCYTES % 10.5 % (18.0-39.1); MEAN CORPUSCULAR HEMOGLOBIN 27.8 pg (28-32); MEAN CORPUSCULAR HGB CONC 31.1 g/dL (31-35); MEAN CORPUSCULAR VOLUME 89.4 fL (81-99); MONOCYTES # (AUTO) 0.7 (0.2-0.8); MONOCYTES % 8.7 % (4.4-11.3); NEUTROPHILS # (AUTO) 6.3 (2.1-6.9); NEUTROPHILS % 78.7 % (38.7-80.0); PLATELET COUNT 168 x10e3/uL (140-360); RED BLOOD COUNT 3.49 x10e6/uL (3.6-5.1); RED CELL DISTRIBUTION WIDTH 15.3 % (11.7-14.4)
[2018-07-13] MEDS: INSULIN REGULAR, HUMAN 100 UNIT/1 ML 3ML VIAL SQ SCH ×4 (07:30→21:43)
[2018-07-13 08:33] LABS: ANION GAP 10.9 mmol/L (8-16); BLOOD UREA NITROGEN 35 mg/dL (7-26); BUN/CREATININE RATIO 39 (6-25); CALCIUM 9.2 mg/dL (8.4-10.2); CARBON DIOXIDE 28 mmol/L (22-29); CHLORIDE 104 mmol/L (98-107); CREATININE, SERUM 0.89 mg/dL (0.57-1.11); EST GLOMERULAR FILTRATION RATE > 60 ML/MIN (60-); GLUCOSE 71 mg/dL (74-118); POTASSIUM 3.9 mmol/L (3.5-5.1); SODIUM 139 mmol/L (136-145)
[2018-07-13] MEDS: FLUCONAZOLE 100 MG TAB PO SCH (08:49)
[2018-07-13] MEDS: SIMVASTATIN 20 MG TAB PO SCH (08:50)
[2018-07-13] MEDS: POTASSIUM CHLORIDE 10MEQ EA PO SCH ×2 (08:50→16:41)
[2018-07-13] MEDS: LISINOPRIL 2.5 MG TAB PO SCH (08:50)
[2018-07-13] MEDS: CLOPIDOGREL BISULFATE 75 MG TAB PO SCH (08:50)
[2018-07-13] MEDS: METOPROLOL SUCCINATE 50 MG TAB XL PO SCH (08:50)
[2018-07-13] MEDS: DIGOXIN 0.125 MG TAB PO SCH (08:50)
[2018-07-13] MEDS: FUROSEMIDE INJ 10 MG/ML 4 ML VIAL IV SCH ×2 (09:19→16:41)
[2018-07-14] VITALS (8 sets, daily range): BP systolic 130–153; BP diastolic 60–71
[2018-07-14] MEDS: INSULIN REGULAR, HUMAN 100 UNIT/1 ML 3ML VIAL SQ SCH ×4 (07:30→22:03)
[2018-07-14] MEDS: LISINOPRIL 2.5 MG TAB PO SCH (10:35)
[2018-07-14] MEDS: POTASSIUM CHLORIDE 10MEQ EA PO SCH ×2 (10:35→17:16)
[2018-07-14] MEDS: CLOPIDOGREL BISULFATE 75 MG TAB PO SCH (10:35)
[2018-07-14] MEDS: METOPROLOL SUCCINATE 50 MG TAB XL PO SCH (10:35)
[2018-07-14] MEDS: FLUCONAZOLE 100 MG TAB PO SCH (10:35)
[2018-07-14] MEDS: SIMVASTATIN 20 MG TAB PO SCH (10:35)
[2018-07-14] MEDS: FUROSEMIDE INJ 10 MG/ML 4 ML VIAL IV SCH ×2 (10:35→17:16)
[2018-07-14] MEDS: DIGOXIN 0.125 MG TAB PO SCH (10:35)
--- NOTE | 2018-07-14 11:15 | NUR ---
IMM EXPLAINED, SIGNED BY PT AND PLACED IN CHART COPY IN PT'S CARE TRANSITION FOLDER
--- NOTE | 2018-07-14 17:18 | NUR ---
Nutrition Screen Note RD Recommendation for Physician: - Recommend adding 2 gm Na to 1600 ADA diet - Diet education provided 07/14 Plan of Care: RD following, monitoring for tolerance and adequacy Nutrition reason for involvement: Nutrition Risk Trigger- MST, DX- CHF Primary Diagnose(s): CHF, chronic Afib, hypoxia PMH: CHF, Afib, HTN, DM, CKD3 Ht: 64 in Wt: 238.31 lb BMI: 40.9 kg/m2 IBW: [address] Assessment: (07/14) 77 YOF admitted for CHF, chronic Afib, and hypoxia. Pt seen today per dx screen for CHF and MST score. Pt discussed at am rounds. Pt reports eating 3 meals per day with fair appetite, pt eating 50-100% of meals per chart since admit. Pt's family at bedside reports UBW of 221# in June at last MD visit- no wt loss noted. Pt denies any N/V/C/D or difficulties chewing or swallowing. Pt with +3 BLE pitting edema currently and unstaged sacral wound per skin assessment. Pt and family member receptive to diet education at time of visit. Pt and family educated on low Na nutrition therapy and fluid sources emphasizing high Na foods to avoid, grocery shopping tips, label reading, dining out, modifications, and preferred low sodium foods and seasoning. Pt also educated on fluid sources and explained the reasons to limit sodium and monitor fluid intake. All questions answered at time of visit and diet education materials provided. Chart reviewed. Labs and meds reviewed. Will monitor and continue to follow. Current Diet: 1600 ADA Malnutrition Evaluation (07/14) The patient does not meet criteria for a specified degree of malnutrition at this time. Will re-evaluate at follow-up as appropriate. Diet Education Needs Assessment: Diet education indicated, pt receptive 07/14/18. Learner(s): pt, pt's family member Barriers: none Cultural/Language Modifications: none Readiness: ready Method: handouts, discussion Topics: Low Na nutrition therapy, fluid sourced Understanding/Compliance: fair Nutrition Care Level: Low Signed: Sandy Crystal RD, LD, [facility]
--- NOTE | 2018-07-14 18:03 | NUR ---
WOUND CARE CONSULTATION - INITIAL EVALUATION Patient admitted from home to ER for - s/p fall., hypoxia on room air 84%. WBC8.02 HGB9.7 HCT 31.2 GLU71 ALb3.3 WOUND CARE Consulted for evaluation of redness to sacrum and abdominal folds & groin areas. Patient in bed and in good spirits. AAOX3. Family member at bedside. Denies pain or discomfort to sacral area. Denuded epidermis to mid gluteal fold. area moist, pink with some maceration present. Abdominal folds & groin areas moist, no skin breakdown noted. skin pink. IMPRESSION: Sacrum - Moisture Related Dermatologic Rash. 1. ABDOMINAL FOLDS, PERINEAL AREAS, SACRUM: - WASH AREAS WITH MILD SOAP AND WATER THEN PAT DRY THOROUGHLY Q12H. - APPLY KIRA CREAM Q12H AND PRN SOILING. 2. TURN AND REPOSITION EVERY 2 HOURS 3. BILATERAL HEEL PROTECTORS / OFFLOAD HEELS WITH PILLOWS WHILE IN BED. 4. ENCOURAGE OOB ACTIVITY. 5. HOB ELEVATED UP TO 30 DEGREES TOLERATED. 6. ALTERNATING PRESSURE AIR MATTRESS PLEASE. Thank you for consulting with Wound Care. Addendum: 07/14/18 at 1811 by Dave Jim RN Amended: Links added.
--- NOTE | 2018-07-14 21:45 | NUR ---
RN CLEANED PATIENT WITH SOAP AND WATER BETWEEN YOUR SKIN FOLDS, GROIN AND PERINEAL AREA. DRY WITH TOWEL. APPLIED KIRA CREAM ON THE AFFECTED AREA. APPLIED HEEL PROTECTORS AND TURNED PATIENT TO RIGHT SIDE. MONITOR PATIENT TO CHANGE POSITION EVER 2 HOURS TO PREVENT SKIN BREAKDOWN.
[2018-07-14] MEDS: ZINC OXIDE / BALSAM PERU 30 GM TUBE TOP SCH (21:59)
[2018-07-15] VITALS (7 sets, daily range): BP systolic 130–159; BP diastolic 60–68
--- NOTE | 2018-07-15 04:47 | NUR ---
PER DR. HILL ORDER, REMOVE OXYGEN NASAL CANNULA WHEN PATIENT IS OOB TODAY. RECORD O2 SATURATION AND REPORT FINDING TO DR. HILL FOR FURTHER INSTRUCTIONS.
[2018-07-15] MEDS: ZINC OXIDE / BALSAM PERU 30 GM TUBE TOP SCH ×2 (07:10→21:47)
[2018-07-15] MEDS: INSULIN REGULAR, HUMAN 100 UNIT/1 ML 3ML VIAL SQ SCH ×4 (07:30→21:47)
[2018-07-15] MEDS: FUROSEMIDE INJ 10 MG/ML 4 ML VIAL IV SCH ×2 (10:25→18:11)
[2018-07-15] MEDS: FLUCONAZOLE 100 MG TAB PO SCH (10:25)
[2018-07-15] MEDS: POTASSIUM CHLORIDE 10MEQ EA PO SCH ×2 (10:27→18:11)
[2018-07-15] MEDS: CLOPIDOGREL BISULFATE 75 MG TAB PO SCH (10:27)
[2018-07-15] MEDS: DIGOXIN 0.125 MG TAB PO SCH (10:27)
[2018-07-15] MEDS: LISINOPRIL 2.5 MG TAB PO SCH (10:28)
[2018-07-15] MEDS: METOPROLOL SUCCINATE 50 MG TAB XL PO SCH (10:29)
--- NOTE | 2018-07-15 12:13 | NUR ---
CM SPOKE TO PANKAJ WHITTINGTONSAWMILL PRODUCTION WORKER REGARDING PATIENT PLAN OF CARE. PATIENT DESATURATING IN THE 70% SPO2. BEDSIDE RN TO GET ORDERS FOR HOME O2 EVAL. FLOOR CM TO SET UP HOME O2 PRIOR TO DISCHARGE IF PATIENT QUALIFIES.
--- NOTE | 2018-07-15 15:18 | NUR ---
CASE MANAGEMENT ASSESSMENT Laboratory Administrative Director to bedside to discuss plan of care with patient/family. CM/SW role and care transitions discussed. Anticipated discharge plan discussed along with duration of care. CM/SW discussed patients right to make decisions in care. CM/SW work hours given. Patient lives: with daughter Digna Admit/Transfer: thru ED Hospital/ER visits since last admit: last discharged July 08, 2017; no ED visits since then POA/Emergency contact: Digna Duran [phone] Current/Previous Home Health: none PCP/Follow-up Care: Dr. Gibbons - PCP; advised pt to follow up with PCP within 5-7 days of discharge. pt states she will work on getting an appointment Current/Previous DME: jose enrique gutierrez - pt states she does not use her cane. no oxygen at home Medications (referring to index hospitalization or the first time you were in the hospital) a. Were changes made in your medications when you were in the hospital on July 2018? no b. Did you understand the changes? n/a c. Were you able to obtain your new medications right away? n/a d. Were you able to take your medications like the doctor wanted you to? n/a e. Did the hospital give you an accurate, easy to understand list of medications when you left? yes Scale of 1-10 how comfortable does patient feel with disease management in outpatient settin Other Services: none Employment Status: retired Areas of Concerns: CHF, hypoxia Referral Needs: possible need for home health Education Needs: CHF IMM/SCHUMACHER given and signed (if applicable): IMM was given yesterday Goal for discharge: home; states she would be agreeable to home health if Dr. Gibbons thinks she needs it. CM/SW left business card at the bedside with contact information. Name and number was also written on the patients whiteboard. Patient verbalized understanding of discussion. CM will follow-up with ongoing discharge and transition of care needs.
--- NOTE | 2018-07-15 15:34 | NUR ---
Reached out to Dr. Gibbons for DC plan. He stated he was waiting on nurse to call him with o2 evaluation. Informed PANKAJ Valencia. She will call Dr. Gibbons with results.
--- NOTE | 2018-07-15 15:50 | NUR ---
Patient was ambulated, without 02 on RA patient's oxygen level is 80%. Notified Dr. Gibbons. New orders received.
--- NOTE | 2018-07-15 17:32 | NUR ---
Received order to set up home health and home oxygen for discharge. CM spoke with pt at bedside. Pt stated it was ok to set up home health and oxygen thru any company that would take her insurance. Choice letter signed and placed in chart. Copy to pt. Referral for home oxygen was sent to [facility]. Gray - liaison was notified. , Referral for home health sent to [facility]. , eulalia Ringison for [facility] was notified.
[2018-07-15] MEDS ORDERED: SIMVASTATIN 40 MG TAB PO SCH (21:00)
[2018-07-16] VITALS: BP 180/68
[2018-07-16 04:00] VITALS: BP 136/59
--- NOTE | 2018-07-16 07:12 | NUR ---
RCD PT AT BED PT IS ALERT AND ORIENTED PT RESTING ON BED NO SIGNS OF ANY DISTRESS NOTED BED LOW AND LOCKED CALL LIGHT IN REACH
[2018-07-16] MEDS: INSULIN REGULAR, HUMAN 100 UNIT/1 ML 3ML VIAL SQ SCH ×3 (07:30→16:30)
--- NOTE | 2018-07-16 08:20 | NUR ---
SHILPA spoke to María Elena with [facility]. She stated that pt has been accepted and she will be by today to talk to pt.
[2018-07-16 08:30] VITALS: BP 160/69
[2018-07-16 09:00] VITALS: BP 160/64
[2018-07-16] MEDS: POTASSIUM CHLORIDE 10MEQ EA PO SCH ×2 (09:00→16:24)
[2018-07-16] MEDS: FUROSEMIDE INJ 10 MG/ML 4 ML VIAL IV SCH ×2 (09:00→16:23)
[2018-07-16] MEDS: FLUCONAZOLE 100 MG TAB PO SCH (09:00)
[2018-07-16] MEDS: LISINOPRIL 2.5 MG TAB PO SCH (09:00)
[2018-07-16] MEDS: DIGOXIN 0.125 MG TAB PO SCH (09:00)
[2018-07-16] MEDS: CLOPIDOGREL BISULFATE 75 MG TAB PO SCH (09:00)
[2018-07-16] MEDS: METOPROLOL SUCCINATE 50 MG TAB XL PO SCH (09:00)
[2018-07-16] MEDS: ZINC OXIDE / BALSAM PERU 30 GM TUBE TOP SCH (09:00)
[2018-07-16] MEDS ORDERED: XARELTO10 MG PO (09:55)
[2018-07-16 12:00] VITALS: BP 145/63
--- NOTE | 2018-07-16 14:38 | NUR ---
IMM letter delivered and explained to pt. She verbalized understanding. Signed copy placed in chart. Copy to pt.
--- NOTE | 2018-07-16 15:25 | NUR ---
Gray Guido delivered portable oxygen to pt's bedside.
--- NOTE | 2018-07-16 15:39 | NUR ---
PAGED AND NOTIFIED DR HILL THE HOME [facility] HERE GOT THE DISCHARGE ORDER
--- NOTE | 2018-07-16 17:18 | NUR ---
PT WENT HOME IN SAFE CONDITION WITH HER SON
--- NOTE | 2018-07-19 11:58 | Discharge Summary ---
DISCHARGE DIAGNOSES: 1. Congestive heart failure. 2. Atrial fibrillation. 3. Hypoxia. 4. Diabetes. 5. Hypertension. 6. Hyperlipidemia. HISTORY OF PRESENT ILLNESS AND HOSPITAL COURSE: Please see hospital chart for full details. The patient is a lady, who unfortunately fell at home and when she came to the emergency room, she was noticed to be weak and eventually was noticed to be in atrial fibrillation with RVR and also noted to be significantly hypoxic with some pulmonary congestion on the x-ray consistent with CHF. She was brought in, diuresed, and felt great. Initially, her atrial fibrillation got under control. She was seen by Dr. Rob, her supervisor carbon paper coating and every time we took the patient off oxygen and ambulated her, her O2 sats would drop significantly. She was feeling good and really wanted to go home, so she was set up with home oxygen to follow up with me and Dr. Rob in 1-2 weeks. She is to continue with her home medications. Please see hospital chart for full details. MD SANDY Garcia/ADI /[id number]
== END 2018-07-16 17:17 | disposition home health service (06) | DRG 291 ==
LOC: ER 21:57 → ERHOLD 07-12 01:16 → MED/SURG 07-12 14:47 → MED/SURG2 07-15 11:28
PROVIDERS: ADMIT Internal Medicine; ATTEND Internal Medicine
DX: I13.0 Hypertensive heart and chronic kidney disease with heart failure and stage 1 through stage 4 chronic kidney disease, or unspecified chronic kidney disease (principal); I50.33 Acute on chronic diastolic (congestive) heart failure; Z68.41 Body mass index [BMI] 40.0-44.9, adult; J96.11 Chronic respiratory failure with hypoxia; E11.22 Type 2 diabetes mellitus with diabetic chronic kidney disease; N18.3 Chronic kidney disease, stage 3 (moderate); I48.2 Chronic atrial fibrillation; E78.5 Hyperlipidemia, unspecified; Z95.0 Presence of cardiac pacemaker; Z90.49 Acquired absence of other specified parts of digestive tract; E66.9 Obesity, unspecified; Z91.81 History of falling; Z87.440 Personal history of urinary (tract) infections; D64.9 Anemia, unspecified; Z79.84 Long term (current) use of oral hypoglycemic drugs; Z79.01 Long term (current) use of anticoagulants
CPT/HCPCS: 36415; 71045; 72170; 80048; 80053; 80162; 81001; 82550; 82553; 82948; 83880; 84443; 84484; 85025; 85610; 85730; 93005; 93306; 96374; 97139; 99285; J1940

== ENCOUNTER 2018-08-21 12:29 | Inpatient (IN) | payer MEDICARE ==
[~2018-08-21] VITALS: Ht 162.6 cm; Wt 104.8 kg
[~2018-08-21 12:29] MED LIST changes: +FLUCONAZOLE100 MG PO; +XARELTO10 MG PO
[2018-08-21] MEDS ORDERED: FUROSEMIDE INJ 10 MG/ML 4 ML VIAL IV NR (13:00)
--- NOTE | 2018-08-21 14:04 | Diagnostic Imaging Report ---
Examination: Single AP view of the chest. COMPARISON: 07/11/2018 INDICATION: Dyspnea DISCUSSION: Lungs are well-inflated. Small bilateral pleural effusions with bibasilar airspace opacities likely atelectasis, similar to 07/11/2018. Unchanged left subclavian approach implantable cardiac device. Stable enlargement of the cardiac silhouette with prominence of the central pulmonary vasculature. No acute osseous abnormality. IMPRESSION: Cardiomegaly with pulmonary venous congestion and small bilateral pleural effusions, similar to that noted on 07/11/2018. Signed by: Dr. Ishmael Diez M.D. on 08/21/2018 2:01 PM
[2018-08-21 14:22] LABS: BASOPHILS # (AUTO) 0.1 (0.0-0.1); BASOPHILS % 0.6 % (0.0-1.0); EOSINOPHILS # (AUTO) 0.4 (0.0-0.4); EOSINOPHILS % 3.3 % (0.0-6.0); HEMOGLOBIN 8.5 g/dL (12.0-16.0); LYMPHOCYTES # (AUTO) 0.6 (1.0-3.2); LYMPHOCYTES % 5.4 % (18.0-39.1); MEAN CORPUSCULAR HEMOGLOBIN 27.2 pg (28-32); MEAN CORPUSCULAR HGB CONC 31.5 g/dL (31-35); MEAN CORPUSCULAR VOLUME 86.3 fL (81-99); MONOCYTES # (AUTO) 0.9 (0.2-0.8); MONOCYTES % 8.4 % (4.4-11.3); NEUTROPHILS % 81.9 % (38.7-80.0); PLATELET COUNT 230 x10e3/uL (140-360); RED BLOOD COUNT 3.13 x10e6/uL (3.6-5.1); RED CELL DISTRIBUTION WIDTH 16.3 % (11.7-14.4)
[2018-08-21 14:27] LABS: BILIRUBIN,URINE NEGATIVE (NEGATIVE); CLARITY,URINE SL CLOUDY (CLEAR); COLOR,URINE YELLOW (YELLOW); KETONES,URINE NEGATIVE (NEGATIVE); LEUKOCYTE ESTERASE ,URINE NEGATIVE (NEGATIVE); NITRITE,URINE NEGATIVE (NEGATIVE); PROTEIN,URINE DIPSTICK NEGATIVE (NEGATIVE); URINE UROBILINOGEN 0.2 mg/dL (0.2 - 1)
[2018-08-21 14:39] LABS: BACTERIA,URINE MODERATE /HPF; EPITHELIAL CELLS,URINE MODERATE /LPF
[2018-08-21 14:40] LABS: INR 2.78; PROTHROMBIN TIME 30.1 seconds (11.9-14.5)
[2018-08-21 14:41] LABS: PARTIAL THROMBOPLASTIN TIME 35.7 seconds (23.8-35.5)
[2018-08-21 14:46] LABS: ABG PCO2 39 mmHg (41-51); ABG PH 7.42 (7.31-7.41)
[2018-08-21 14:47] LABS: ABG HCO3 25 mmol/L (23-28); ABG PO2 153 mmHg (80-105)
--- NOTE | 2018-08-21 15:14 | NUR ---
BIPAP OFF FROM MD ORDER. NO RESP DISTRESS NOTED. PT REMAINS ON NASAL CANNULA AT 2 LPM AND TOLERATING WELL.
[2018-08-21 15:18] LABS: ALBUMIN 3.4 g/dL (3.5-5.0); ALBUMIN/GLOBULIN RATIO 0.8 (0.8-2.0); ANION GAP 16.1 mmol/L (8-16); CALCIUM 9.5 mg/dL (8.4-10.2); CREATININE, SERUM 1.59 mg/dL (0.57-1.11); MAGNESIUM 1.8 MG/DL (1.3-2.1); POTASSIUM 4.1 mmol/L (3.5-5.1)
[2018-08-21 15:25] LABS: CREATINE KINASE MB 2.2 ng/mL (0-5.0)
[2018-08-21] MEDS: FUROSEMIDE INJ 10 MG/ML 4 ML VIAL IV SCH (17:08)
[2018-08-21] MEDS ORDERED: AMLODIPINE PO SCH (17:15)
[2018-08-21] MEDS ORDERED: VALSARTAN PO SCH (17:15)
[2018-08-21] MEDS ORDERED: DEXTROSE 50% SYRINGE 50 ML IV PRN (17:30)
[2018-08-21 18:17] LABS: CHOL/HDL RATIO 2.7 (3.0-3.6)
--- NOTE | 2018-08-21 18:22 | NUR ---
Recvd patient from ER, AAOx3, Assisted her to bed , on O2 2L NC, denies any pain, no distress noted, call light in reach, bed alarm ON
[2018-08-21 18:40] LABS: FREE THYROXINE INDEX 2.9194 (1.4-3.8); THYROID STIMULATING HORMONE 2.537 uIU/mL (0.350-4.940)
[2018-08-21 19:00] VITALS: BP 128/61
--- NOTE | 2018-08-21 19:00 | NUR ---
received report from day nurse. patient is resting comfortably in bed. external catheter is in place. catheter is patent and urine is flowing. denies pain or discomfort. bed is in lowest position and call law is within reach. will continue to monitor patient.
[2018-08-21] MEDS: AMLODIPINE BESYLATE 10 MG TAB PO SCH (19:27)
[2018-08-21 20:32] VITALS: BP 128/61
[2018-08-21] MEDS ORDERED: NON-FORMULARY MEDICATION (Hydralazine Hcl 50 MG) PO SCH (21:00)
[2018-08-21] MEDS: SIMVASTATIN 40 MG TAB PO SCH (22:48)
[2018-08-21] MEDS: VALSARTAN 160 MG TAB PO SCH (22:48)
[2018-08-21] MEDS: HYDRALAZINE HCL 25 MG TAB PO SCH (22:48)
[2018-08-21] MEDS: INSULIN LISPRO 100 UNIT/1 ML 3ML VIAL SQ SCH (22:49)
[2018-08-22] VITALS (9 sets, daily range): BP systolic 110–147; BP diastolic 44–67
--- NOTE | 2018-08-22 00:52 | History and Physical ---
CHIEF COMPLAINT: This is a 77-year-old female comes in with weakness. HISTORY OF PRESENTING ILLNESS: Ms. Shane Duran, who is a 77-year-old female with a history of congestive heart failure, history of chronic atrial fibrillation, history of hypertension, was in her usual state of health until the patient woke up in the morning and was noted to have extreme weakness. EMS was activated. The patient was gotten out of bed. The EMS left and the patient still felt weak. Dyspnea was noticed and the patient was brought into the emergency room by her daughter and is admitted for congestive heart failure. PAST MEDICAL HISTORY: History of atrial fibrillation, history of congestive heart failure, history of hypertension, history of COPD, history of diabetes mellitus, history of hyperlipidemia, history of urinary tract infections, recurrent, and history of diabetes mellitus. MEDICATIONS: Medicines she takes at home are amlodipine, losartan, clopidogrel 75 mg, digoxin 125 mcg, fluconazole 100 mg daily, furosemide 40 mg daily, glimepiride 4 mg twice a day, hydralazine 50 mg t.i.d., hydrochlorothiazide 12.5 mg daily, Tradjenta 5 mg daily, lovastatin 40 mg daily, metoprolol 50 mg daily, Xarelto 10 mg daily, and also Invokana 100 mg daily. PAST SURGICAL HISTORY: Includes history of cholecystectomy, pacemaker placement, and tonsillectomy. REVIEW OF SYSTEMS: Negative for chest pain. Positive for shortness of breath. No nausea, vomiting, or diarrhea. No constipation. No rectal bleeding. Positive for pedal edema. Negative for diplopia. No blurry vision either. ALLERGIES: NO DRUG ALLERGIES NOTED. PHYSICAL EXAMINATION: VITAL SIGNS: The patient's vital signs on examination, temperature is 97.5, pulse 95, respirations 17, blood pressure is 115/51, and pulse ox is 87% on room air. The patient is kept on BiPAP initially. HEENT: Normocephalic, atraumatic. Pupils are reactive to light and accommodation. CVS: S1, S2. Regular at this time. ABDOMEN: Nontender and nondistended. EXTREMITIES: Positive for 2+ edema. SKIN: Normal, dry. NEUROLOGIC: Alert and oriented x3. No sensory or motor deficits noted. LABORATORY AND DIAGNOSTIC DATA: The patient's EKG initial shows an atrial paced rhythm, left axis deviation, wide QRS complexes. Chest x-ray shows cardiomegaly with pulmonary venous congestion. Laboratory tests ordered shows white count 10.95, hemoglobin of 8.5, hematocrit of 27.0, MCH 27.2, and platelet count is 283. Coags normal. INR is 2.78. Chemistries show a sodium of 135, potassium of 4, BUN of 50, creatinine of 1.59, and glucose of 375. Total bilirubin of 0.8. Troponin 0.023. BNP was 1088. Amylase and lipase are normal. Urine shows 1+ glucose and moderate amount of bacteria., leukocyte esterase is negative and also nitrite is negative. ASSESSMENT: 1. Respiratory failure number. The patient is on BiPAP initially. 2. Congestive heart failure, acute on chronic. 3. Atrial fibrillation, rate controlled at this time. 4. Hypoxia. 5. Hyperlipidemia. 6. Diabetes mellitus uncontrolled. 7. Chronic kidney disease. 8. Urinary tract infection. PLAN: Continue the patient with diuresis. Cardiology consult has been done. Echo has been ordered. TSH and T4 will be done. The patient will continue on Lasix 40 mg twice a day has been given already. Continue to monitor the patient. Further recommendation per clinical course. Low-salt diet and also strict I and O's and daily weights will be done for the patient. For further information, look into the chart and the patient will be monitored in IMCU along with Cardiology. MD GAL Kearney/MODL /[id number]
[2018-08-22 05:49] LABS: BASOPHILS % 0.4 % (0.0-1.0); EOSINOPHILS # (AUTO) 0.6 (0.0-0.4); EOSINOPHILS % 7.4 % (0.0-6.0); HEMATOCRIT 24.6 % (34.2-44.1); HEMOGLOBIN 7.3 g/dL (12.0-16.0); LYMPHOCYTES # (AUTO) 0.9 (1.0-3.2); LYMPHOCYTES % 12.7 % (18.0-39.1); MEAN CORPUSCULAR HEMOGLOBIN 26.5 pg (28-32); MEAN CORPUSCULAR HGB CONC 29.7 g/dL (31-35); MEAN CORPUSCULAR VOLUME 89.5 fL (81-99); MONOCYTES # (AUTO) 0.8 (0.2-0.8); MONOCYTES % 10.6 % (4.4-11.3); NEUTROPHILS # (AUTO) 5.1 (2.1-6.9); NEUTROPHILS % 68.6 % (38.7-80.0); PLATELET COUNT 182 x10e3/uL (140-360); RED BLOOD COUNT 2.75 x10e6/uL (3.6-5.1); RED CELL DISTRIBUTION WIDTH 16.2 % (11.7-14.4)
[2018-08-22 06:13] LABS: ALBUMIN 2.8 g/dL (3.5-5.0); ALBUMIN/GLOBULIN RATIO 0.8 (0.8-2.0); ANION GAP 10.6 mmol/L (8-16); CALCIUM 9.1 mg/dL (8.4-10.2); CREATININE, SERUM 1.27 mg/dL (0.57-1.11); MAGNESIUM 1.8 MG/DL (1.3-2.1); POTASSIUM 3.6 mmol/L (3.5-5.1)
--- NOTE | 2018-08-22 06:32 | Diagnostic Imaging Report ---
Examination: Single AP view of the chest. COMPARISON: Portable chest 08/21/2018 INDICATION: Vascular congestion IMPRESSION: 1. Lines and Tubes: Stable left upper chest multilead cardiac device. 2. Interval worsening of central pulmonary venous congestion, bilateral interstitial edema and left-sided pleural effusion and associated atelectasis. Findings consistent with fluid overload. 3. Stable enlargement of the cardiac silhouette . Atherosclerotic calcification of the aortic arch 4. No acute bony abnormalities. Signed by: Dr. Manuel Orozco M.D. on 08/22/2018 6:29 AM
[2018-08-22 06:54] LABS: CREATINE KINASE MB 1.4 ng/mL (0-5.0)
--- NOTE | 2018-08-22 06:56 | NUR ---
report given to day nurse. patient is resting in bed. bed is in lowest position and call law is within reach. will continue to monitor patient.
--- NOTE | 2018-08-22 07:10 | NUR ---
MD has put in orders for patient to receive one unit of blood. patient is to have 20mg of lasix after infusion.
[2018-08-22] MEDS ORDERED: FUROSEMIDE INJ 10 MG/ML 2 ML VIAL IV SCH (07:15)
[2018-08-22] MEDS ORDERED: SODIUM CHLORIDE 0.9% 250ML 250 ML IV NR (07:15)
[2018-08-22] MEDS: INSULIN LISPRO 100 UNIT/1 ML 3ML VIAL SQ SCH ×4 (07:30→21:32)
[2018-08-22] MEDS: FUROSEMIDE INJ 10 MG/ML 4 ML VIAL IV SCH ×2 (09:00→17:04)
[2018-08-22] MEDS ORDERED: SIMVASTATIN 20 MG TAB PO SCH (09:00)
[2018-08-22] MEDS: METOPROLOL SUCCINATE 50 MG TAB XL PO SCH (09:00)
[2018-08-22] MEDS: HYDRALAZINE HCL 25 MG TAB PO SCH ×3 (09:00→21:40)
[2018-08-22] MEDS: NYSTATIN/TRIAMCINOLONE 15 GM CR TOP SCH ×3 (09:00→21:00)
[2018-08-22] MEDS: PANTOPRAZOLE SOD 40 MG TABEC PO SCH (09:00)
[2018-08-22] MEDS: RIVAROXABAN 15 MG TABLET PO SCH (09:00)
[2018-08-22] MEDS: DIGOXIN 0.125 MG TAB PO SCH (09:00)
[2018-08-22] MEDS: CLOPIDOGREL BISULFATE 75 MG TAB PO SCH (09:00)
[2018-08-22] MEDS ORDERED: RIVAROXABAN 10 MG TABLET PO SCH (09:00)
[2018-08-22] MEDS ORDERED: SODIUM CHLORIDE 0.9% 250ML 250 ML ONE (10:29)
--- NOTE | 2018-08-22 13:23 | NUR ---
WOUND CARE - INITIAL EVALUATION Patient admitted from home to ER for Dyspnea. Patient admitted and diagnosed with CHF. LABS: WBC7.39 HGB7.3 HCT24.6 NEUT%68.6 HBA1C8.4 [id number] ALB2.8 WC Consulted for breakdown at abdominal folds. PATIENT VISIT: Patient AAOX4, Calm, cooperative and in good spirits. Denies pain or discomfort. Denies wounds or rashes initially, Denies itching. González Score 16 Visco Mattress Bilateral Heels - blanchable redness present. No pressure ulcers identified. Edema +2. BLE Edema +2. Diapered. Dry wick in place to wall suction draining yellow urine. Patent on oxygen via nasal cannula and receiving blood. Patient mobile, able to turn self when prompted. Sacral - no pressure ulcers noted. Owings, dry and intact skin. Abdominal fold presents with mild denuded skin, likely from overmoisture and rubbing of diaper. No erythema noted. Denies itching, No petechiae. Breast folds & Groin areas - no rash identified. IMPRESSION: Mid Abdominal Fold - Moisture related dermatitis. Bilateral Heels - Blanchable Erythema RECOMMENDATION: 1. Mid Abdominal Fold - Moisture Related Dermatitis - Routine Bathing and Dry area thoroughly - Apply Lantiseptic Cream Daily. 2. Bilateral Heels - Blanchable Erythema - Bilateral Heel Protectors while in bed. 3. Turn and Reposition every 2 hours 4. Encourage Out of Bed Activity 5. Maintain Head of bed at no greater than 30 degrees as tolerated. 6. Initiate Moderate PUP Protocol Thank you for consulting with Wound Care. Addendum: 08/22/18 at 1332 by Dave Jim RN Amended: Links added.
--- NOTE | 2018-08-22 14:58 | NUR ---
PRBC complete withpout reaction. lasix 20mg IV given post transfusion.
--- NOTE | 2018-08-22 15:13 | NUR ---
Nutrition Screen Note RD Recommendation for Physician: -Rec adding cardiac to ADA diet as medically appropriate Plan of Care: RD following, monitoring for tolerance and adequacy Nutrition reason for involvement: Diagnosis - CHF Primary Diagnose(s): CHF PMH: Afib, CHF, HTN, COPD, DM, HLD Ht: 64in Wt: 228lb BMI: 39.1kg/m2 IBW: 120lb RD Assessment: (08/22/2018) Chart reviewed. Labs and meds reviewed. 77yo F, who was admitted for weakness. Pt was d/c from [facility] on 07/16/[address] saw pt on 07/14/18 and provided diet education on CHF. Visited pt in the room. Pt reported good appetite without any GI complains. Pt denied any chewing or swallowing difficulty. RD asked if pt needed more info on heart healthy diet; pt stated I know what I can and cant eat. Will continue to monitor and follow. Current Diet: ADA 1800 Malnutrition Evaluation (08/22) The patient does not meet criteria for a specified degree of malnutrition at this time. Will re-evaluate at follow-up as appropriate. Diet Education Needs Assessment: RD saw pt on 07/14/18 and provided diet education on CHF. Nutrition Care Level: low Signed: Xiomara Bernabe, MS, RD, LD
[2018-08-22 15:57] LABS: BASOPHILS % 0.4 % (0.0-1.0); EOSINOPHILS # (AUTO) 0.6 (0.0-0.4); EOSINOPHILS % 6.9 % (0.0-6.0); HEMOGLOBIN 8.5 g/dL (12.0-16.0); LYMPHOCYTES # (AUTO) 0.8 (1.0-3.2); LYMPHOCYTES % 9.9 % (18.0-39.1); MEAN CORPUSCULAR HEMOGLOBIN 26.7 pg (28-32); MEAN CORPUSCULAR HGB CONC 30.4 g/dL (31-35); MEAN CORPUSCULAR VOLUME 88.1 fL (81-99); MONOCYTES # (AUTO) 0.8 (0.2-0.8); NEUTROPHILS # (AUTO) 6.1 (2.1-6.9); NEUTROPHILS % 73.4 % (38.7-80.0); PLATELET COUNT 186 x10e3/uL (140-360); RED BLOOD COUNT 3.18 x10e6/uL (3.6-5.1); RED CELL DISTRIBUTION WIDTH 15.9 % (11.7-14.4)
[2018-08-22] MEDS: AMLODIPINE BESYLATE 10 MG TAB PO SCH (17:05)
[2018-08-22] MEDS: VALSARTAN 160 MG TAB PO SCH (17:05)
--- NOTE | 2018-08-22 20:21 | Progress Note ---
DATE: SUBJECTIVE: This patient comes in here with acute congestive heart failure, also noted to have anemia. The patient was given 1 unit of PRBC with Lasix to follow. The patient is getting 40 mg of Lasix twice a day. The patient's echocardiogram was done yesterday. The patient's echo showed EF of 60% to 65%, pleural effusion, mild MR, and mild TR too. The patient is currently asymptomatic and feeling better after the blood transfusion. OBJECTIVE: VITAL SIGNS: Temperature 98.4, blood pressure is 147/67, respiratory rate of 20, and pulse ox of 93% on 3 L of oxygen. HEENT: Normocephalic, atraumatic. Pupils are reactive to light and accommodation. CVS: S1 and S2 normal. Regular rate and rhythm. ABDOMEN: Nontender and nondistended. EXTREMITIES: Positive for 2+ edema. MEDICATIONS: 1. Amlodipine. 2. Losartan. 3. Lasix. 4. Hydralazine. 5. Xarelto 15 mg. 6. Metoprolol 50 mg. 7. Digoxin 0.125. 8. Simvastatin 40. 9. Pantoprazole 40. LABORATORY DATA: Today's white count is 8.32, hemoglobin of 8.5, status post transfusion of 1 unit, morning was 7.3, hematocrit 28.0. Chemistries show sodium of 139, potassium 3.6, BUN 47, and creatinine of 1.27. ASSESSMENT: 1. Acute diastolic dysfunction. 2. Anemia, probably iron deficiency. We will go and check her iron levels. 3. Chronic kidney disease. 4. Debility. 5. Hypertension. 6. Atrial fibrillation. PLAN: Plan is to continue with Lasix IV 40 twice a day. The patient will have some physical therapy ordered and iron panel checked. Further recommendation and clinical course. We will continue to monitor the patient. The patient's last A1c was 8.4 and creatinine is 1.59, which is improved. BNP was 1088.9 and LDL 40. MD GAL Kearney/HEIDYL /[id number]
[2018-08-22] MEDS: SIMVASTATIN 40 MG TAB PO SCH (21:33)
[2018-08-23] VITALS (8 sets, daily range): BP systolic 109–136; BP diastolic 55–60
[2018-08-23] MEDS: INSULIN LISPRO 100 UNIT/1 ML 3ML VIAL SQ SCH ×4 (07:30→20:52)
--- NOTE | 2018-08-23 07:39 | Progress Note ---
DATE: SUBJECTIVE: The patient comes in with congestive heart failure, symptomatic anemia, blood loss anemia. The patient is currently asymptomatic. Shortness of breath is better. Has not gotten out of bed. Physical therapy will be ordered today. Otherwise, no complaints. BMs positive and also is on Lasix. The patient's medications hydralazine 50 mg, simvastatin 40 mg, insulin q.a.c. h.s. protocol sliding scale, amlodipine 10 mg, Valsartan 320 mg, furosemide 40 mg IV twice a day, Xarelto 15 mg daily, metoprolol 50 mg daily, digoxin 0.125 daily, 75 mg of clopidogrel, pantoprazole 40 mg, and nystatin to the skin areas for fungal infection. OBJECTIVE: VITAL SIGNS: Temperature is 98.3, pulse 60, respirations of 18, blood pressure is 109/56, pulse oximetry of 94%. HEENT: Normocephalic, atraumatic. Pupils are reactive to light and accommodation. CVS: Irregularly irregular. ABDOMEN: Nontender, nondistended. EXTREMITIES: 1+ edema. LABORATORY VALUES: The patient's hematology from yesterday hemoglobin 8.5, hematocrit 28.0, status post transfusion. Chemistries were BUN of 47, creatinine of 1.27 yesterday. Micro, none. ASSESSMENT: 1. Acute diastolic dysfunction. 2. Anemia, iron deficiency/blood loss. Continue with monitoring the patient. Iron levels will be checked. 3. Chronic kidney disease. 4. Debility. 5. Hypertension. 6. Atrial fibrillation. PLAN: Plan is to have physical therapy ordered and we will go ahead and start the patient on PT tomorrow. We can switch the patient to p.o. Lasix. Creatinine will be checked today. Further recommendation per clinical course. We will continue to monitor the patient and possible discharge tomorrow depending on physical therapy input. MD GAL Kearney/ADI /[id number]
[2018-08-23] MEDS: PANTOPRAZOLE SOD 40 MG TABEC PO SCH (08:30)
[2018-08-23] MEDS ORDERED: LANOLIN 4.5 OZ OINT TP SCH (09:00)
[2018-08-23] MEDS: FUROSEMIDE INJ 10 MG/ML 4 ML VIAL IV SCH ×2 (09:14→17:26)
[2018-08-23] MEDS: DIGOXIN 0.125 MG TAB PO SCH (09:14)
[2018-08-23] MEDS: HYDRALAZINE HCL 25 MG TAB PO SCH ×3 (09:14→20:51)
[2018-08-23] MEDS: RIVAROXABAN 15 MG TABLET PO SCH (09:14)
[2018-08-23] MEDS: CLOPIDOGREL BISULFATE 75 MG TAB PO SCH (09:14)
[2018-08-23] MEDS: METOPROLOL SUCCINATE 50 MG TAB XL PO SCH (09:14)
[2018-08-23] MEDS: LANOLIN 4.5 OZ OINT TP SCH (09:15)
[2018-08-23 10:27] LABS: % IRON SATURATION 5 % (15-50); IRON 16 ug/dL (50-170); TOTAL IRON BINDING CAPACITY 333 ug/dL (261-478); TRANSFERRIN 238 mg/dL (180-382)
--- NOTE | 2018-08-23 15:30 | NUR ---
RECEIVED PT FROM [facility]. AAOX 3. CALL ENCINAS WITH IN REACH. BED IS AT LOWEST POSITION AND LOCKED. BED ALARM IS ON. PT DENIES NEEDS AT THIS TIME.
[2018-08-23] MEDS: AMLODIPINE BESYLATE 10 MG TAB PO SCH (18:50)
[2018-08-23] MEDS: VALSARTAN 160 MG TAB PO SCH (18:50)
--- NOTE | 2018-08-23 19:00 | NUR ---
BEDSIDE SHIFT REPORT GIVEN TO SYSTEMS MANAGEMENT CONSULTANT RN. PT DENIES NEEDS AT THIS TIME.
--- NOTE | 2018-08-23 19:00 | NUR ---
Received patient from day nurse, patient is alert and oriented, safety and fall precautions maintained at this time, bed in lowest position and locked, needed items beside call law close to patient, plan of care discussed with patient, patient is currently stable will continue to monitor.
[2018-08-23] MEDS: SIMVASTATIN 40 MG TAB PO SCH (20:51)
[2018-08-24] VITALS (8 sets, daily range): BP systolic 115–140; BP diastolic 51–62
[2018-08-24 05:32] LABS: BASOPHILS % 0.3 % (0.0-1.0); EOSINOPHILS # (AUTO) 0.5 (0.0-0.4); EOSINOPHILS % 7.9 % (0.0-6.0); HEMATOCRIT 25.2 % (34.2-44.1); HEMOGLOBIN 7.9 g/dL (12.0-16.0); LYMPHOCYTES # (AUTO) 0.8 (1.0-3.2); LYMPHOCYTES % 11.6 % (18.0-39.1); MEAN CORPUSCULAR HEMOGLOBIN 27.1 pg (28-32); MEAN CORPUSCULAR HGB CONC 31.3 g/dL (31-35); MEAN CORPUSCULAR VOLUME 86.3 fL (81-99); MONOCYTES # (AUTO) 0.8 (0.2-0.8); MONOCYTES % 11.7 % (4.4-11.3); NEUTROPHILS # (AUTO) 4.6 (2.1-6.9); NEUTROPHILS % 68.1 % (38.7-80.0); PLATELET COUNT 169 x10e3/uL (140-360); RED BLOOD COUNT 2.92 x10e6/uL (3.6-5.1); RED CELL DISTRIBUTION WIDTH 15.9 % (11.7-14.4)
[2018-08-24 05:55] LABS: ANION GAP 12.5 mmol/L (8-16); CALCIUM 8.8 mg/dL (8.4-10.2); CREATININE, SERUM 1.12 mg/dL (0.57-1.11); POTASSIUM 3.5 mmol/L (3.5-5.1)
--- NOTE | 2018-08-24 06:46 | NUR ---
patient endorsed to next shift for continuity of care.
--- NOTE | 2018-08-24 07:00 | NUR ---
RECEIVED BEDSIDE SHIFT REPORT FROM CRAYON MOLDING MACHINE OPERATOR RN. PT AAOX3. BED AT LOWEST POSITION AND LOCKED. BED ALARM IS ON.CALL ENCINAS WITH IN REACH. PT DENIES NEEDS AT THIS TIME.
[2018-08-24] MEDS: INSULIN LISPRO 100 UNIT/1 ML 3ML VIAL SQ SCH ×4 (07:30→20:32)
--- NOTE | 2018-08-24 07:30 | NUR ---
PT HGB 7.9. NOTIFIED DR. STRINGER. NEW ORDER RECEIVED.
--- NOTE | 2018-08-24 07:57 | NUR ---
Met with Dr. Hairston and discussed pt status. Due to her lab values today, he is going to admit her to inpatient status.
--- NOTE | 2018-08-24 08:00 | NUR ---
HEEL PROTECTOR APPLIED ON BOTH LEGS
[2018-08-24] MEDS: METOPROLOL SUCCINATE 50 MG TAB XL PO SCH (08:41)
[2018-08-24] MEDS: PANTOPRAZOLE SOD 40 MG TABEC PO SCH (08:41)
[2018-08-24] MEDS: CLOPIDOGREL BISULFATE 75 MG TAB PO SCH (08:42)
[2018-08-24] MEDS: DIGOXIN 0.125 MG TAB PO SCH (08:42)
[2018-08-24] MEDS: HYDRALAZINE HCL 25 MG TAB PO SCH ×3 (08:43→20:25)
[2018-08-24] MEDS: RIVAROXABAN 15 MG TABLET PO SCH (08:43)
[2018-08-24] MEDS: IRON SUCROSE 100 MG in SODIUM CHLORIDE 0.9% 100 ML 100 ML IV SCH (08:50)
[2018-08-24] MEDS: FUROSEMIDE INJ 10 MG/ML 4 ML VIAL IV SCH ×2 (08:52→16:57)
[2018-08-24] MEDS: LANOLIN 4.5 OZ OINT TP SCH (09:09)
--- NOTE | 2018-08-24 10:07 | Progress Note ---
DATE: SUBJECTIVE: The patient is here for acute congestive heart failure, iron loss, and anemia. The patient received 1 units of PRBC. Did work with physical therapy yesterday. The patient was able to walk; however, with some shortness of breath. Recommendation was to send home with home health; however, the patient's hematocrit has dropped. MEDICATIONS: Include: 1. Amlodipine. 2. Clopidogrel. 3. Dextrose. 4. Digoxin. 5. Furosemide. 6. Hydralazine. 7. Iron. 8. Metoprolol. 9. Pantoprazole. 10. Xarelto. 11. Simvastatin. 12. Losartan. PHYSICAL EXAMINATION: HEENT: Normocephalic, atraumatic. Pallor is present. CVS: S1 and S2 regular. ABDOMEN: Nontender, nondistended. EXTREMITIES: No clubbing. No cyanosis. Positive for edema. LABORATORY DATA: White count of 6.73, RBC of 2.92, hemoglobin of 7.9, hematocrit of 25.2. Chemistry shows sodium 139, potassium 3.5, BUN 46, creatinine of 1.12. Coags were all normal. MICROBIOLOGY: None done. ASSESSMENT: 1. Acute congestive heart failure, diastolic dysfunction. 2. Anemia, blood loss versus iron deficiency. Continue with monitoring the patient. Sucrose will be infused today. 3. Chronic kidney disease. 4. Debility, will need physical therapy as an outpatient. 5. Hypertension, continue with antihypertensive. 6. Atrial fibrillation, continue with apixaban. 7. Coronary artery disease, continue with Plavix. PLAN: Plan is to do a guaiac to see if there is any GI bleed. Further recommendation per clinical course. We will keep the patient inpatient secondary to blood loss anemia. MD TIMI KearneyJ/MODL /[id number]
--- NOTE | 2018-08-24 13:06 | NUR ---
Met with patient and explained IMM letter. She verbalized understanding and signed. Copy given to pt and placed original on chart
[2018-08-24] MEDS: VALSARTAN 160 MG TAB PO SCH (18:19)
[2018-08-24] MEDS: AMLODIPINE BESYLATE 10 MG TAB PO SCH (18:19)
--- NOTE | 2018-08-24 18:30 | NUR ---
PT HAD NO BOWEL MOVEMENT. UNABLE COLLECT STOOL. LAST BM WAS ON 08/23/2018.
--- NOTE | 2018-08-24 19:00 | NUR ---
Received patient from day nurse, safety and fall precautions maintained as per hospital protocol. patient made aware of the need for stool sample and stated will let nursing know when she feels like going.
--- NOTE | 2018-08-24 19:05 | NUR ---
BEDSIDE SHIFT REPORT GIVEN TO CHIEF PRIVACY OFFICER RN. PT DENIED FURTHER NEEDS.
[2018-08-24] MEDS: SIMVASTATIN 40 MG TAB PO SCH (20:25)
[2018-08-25] VITALS (8 sets, daily range): BP systolic 123–139; BP diastolic 57–70
--- NOTE | 2018-08-25 03:55 | Progress Note ---
DATE: 08/24/2018 The patient is a 77-year-old female comes in with acute congestive heart failure. The patient is currently asymptomatic; however, there was drop in her H and H. The patient does feel tired, 1 unit of PRBC was given in IMCU. The patient continues to feel tired. Physical Therapy worked with the patient yesterday, was able to walk and recommendation was to send home with Home Health. The patient currently has no chest pain. Positive for some shortness of breath on exertion. No nausea, vomiting, or diarrhea. No constipation. No rectal bleeding. No hematochezia. The patient's medication include Rocephin DICTATION ENDS HERE MD TIMI KearneyJ/MODL /[id number]
[2018-08-25 05:10] LABS: BASOPHILS % 0.4 % (0.0-1.0); EOSINOPHILS # (AUTO) 0.6 (0.0-0.4); EOSINOPHILS % 8.5 % (0.0-6.0); HEMATOCRIT 27.3 % (34.2-44.1); HEMOGLOBIN 8.3 g/dL (12.0-16.0); LYMPHOCYTES # (AUTO) 0.7 (1.0-3.2); LYMPHOCYTES % 9.5 % (18.0-39.1); MEAN CORPUSCULAR HEMOGLOBIN 26.7 pg (28-32); MEAN CORPUSCULAR HGB CONC 30.4 g/dL (31-35); MEAN CORPUSCULAR VOLUME 87.8 fL (81-99); MONOCYTES # (AUTO) 0.7 (0.2-0.8); MONOCYTES % 10.2 % (4.4-11.3); NEUTROPHILS # (AUTO) 5.2 (2.1-6.9); NEUTROPHILS % 71.1 % (38.7-80.0); PLATELET COUNT 182 x10e3/uL (140-360); RED BLOOD COUNT 3.11 x10e6/uL (3.6-5.1)
[2018-08-25 05:38] LABS: ANION GAP 12.5 mmol/L (8-16); CALCIUM 8.9 mg/dL (8.4-10.2); CREATININE, SERUM 1.16 mg/dL (0.57-1.11); POTASSIUM 3.5 mmol/L (3.5-5.1)
--- NOTE | 2018-08-25 05:55 | NUR ---
No bm last night, stool was not collected, endorsed to day nurse for follow up
--- NOTE | 2018-08-25 06:46 | NUR ---
DR. Kamara office called for consult, message left with Gricelda
[2018-08-25] MEDS: INSULIN LISPRO 100 UNIT/1 ML 3ML VIAL SQ SCH ×4 (07:30→20:54)
--- NOTE | 2018-08-25 07:41 | NUR ---
patient endorsed to day nurse for continuity of care.
[2018-08-25] MEDS: IRON SUCROSE 100 MG in SODIUM CHLORIDE 0.9% 100 ML 100 ML IV SCH (10:03)
[2018-08-25] MEDS: FUROSEMIDE INJ 10 MG/ML 4 ML VIAL IV SCH ×2 (10:03→17:45)
[2018-08-25] MEDS: PANTOPRAZOLE SOD 40 MG TABEC PO SCH (10:03)
[2018-08-25] MEDS: CLOPIDOGREL BISULFATE 75 MG TAB PO SCH (10:04)
[2018-08-25] MEDS: DIGOXIN 0.125 MG TAB PO SCH (10:04)
[2018-08-25] MEDS: HYDRALAZINE HCL 25 MG TAB PO SCH ×3 (10:04→20:39)
[2018-08-25] MEDS: METOPROLOL SUCCINATE 50 MG TAB XL PO SCH (10:04)
[2018-08-25] MEDS: RIVAROXABAN 15 MG TABLET PO SCH (10:05)
[2018-08-25] MEDS: LANOLIN 4.5 OZ OINT TP SCH (10:06)
[2018-08-25] MEDS: AMLODIPINE BESYLATE 10 MG TAB PO SCH (17:45)
[2018-08-25] MEDS: VALSARTAN 160 MG TAB PO SCH (17:45)
--- NOTE | 2018-08-25 19:15 | NUR ---
Received patient in bed, patient is alert and oriented x 3, patient is stable on room air, patient connected to purewick. patient denies any pain at this time. saftey and fall precautions maintained as per hospital protocol: bed in lowest position and locked, needed items beside bed and call law placed close to patient, patient instructed to use it to call nurses for help, patient verbalized understanding. patient is currently stable will continue to monitor. patient reminded about the stool needed, states will alert nursing if any bm, tech also made aware.
[2018-08-25] MEDS: SIMVASTATIN 40 MG TAB PO SCH (20:39)
--- NOTE | 2018-08-25 22:29 | Consultation ---
DATE OF CONSULTATION: Cardiology Consult CHIEF COMPLAINT: The patient is a 77-year-old, admitted on August 22, 2015 for extreme weakness. HISTORY OF PRESENT ILLNESS: The patient is a 77-year-old came to the emergency room with extreme weakness. The patient was also having some trouble breathing. The patient had no chest pain. No syncope and no dizziness. PAST MEDICAL HISTORY: Significant for: 1. Congestive heart failure. 2. Permanent pacemaker insertion. 3. History of atrial fibrillation. 4. History of chronic obstructive pulmonary disease. 5. History of diabetes. MEDICATIONS: At home include: 1. Amlodipine. 2. Losartan. 3. Clopidogrel. 4. Digoxin. 5. Furosemide. 6. Hydralazine. 7. Lovastatin. 8. Metoprolol. 9. Xarelto. SOCIAL HISTORY: She does not drink and does not smoke. The patient lives independently. FAMILY HISTORY: The patient does not drink and does not smoke. PHYSICAL EXAMINATION: GENERAL: The patient is a well-developed, well-nourished female in no obvious distress. VITAL SIGNS: Included a temperature of 98.6, pulse of 74, blood pressure of 116/60. HEAD, EARS, EYES, NOSE, AND THROAT: The patient's cranium was normocephalic and atraumatic. Extraocular muscles were intact. Sclerae were anicteric. Pupils were equal, round, reactive to light. There is no pallor or cyanosis of the oral mucosa. There is no erythema, edema of the throat. NECK: Supple. No jugular venous distention. No carotid bruits. CHEST: Demonstrated some rhonchi bilaterally. CARDIAC: Demonstrated normal S1 and S2 with a short 2/6 systolic murmur. ABDOMEN: Demonstrated good bowel sounds. No tenderness and no masses. EXTREMITIES: 1+ edema. NEUROLOGIC: The patient was alert and oriented x3. Cranial nerves II through XII are intact. Motor strength was intact in all limbs. IMAGING: The patient's EKG demonstrated AV sequential pacing. IMPRESSION: The patient is a 77-year-old admitted with chronic diastolic heart failure and anemia. The patient is feeling much better after IV diuresis and transfusion. The patient's recent echocardiogram demonstrated an ejection fraction of 60%. RECOMMENDATIONS: Are as follows: 1. The patient needs to be continued on Xarelto for her atrial fibrillation. 2. The patient will need to be continued on Lasix, metoprolol and losartan for congestive heart failure. 3. The patient will need to return to the office for a followup on a pacemaker. MD DAE Mo/MODL /[id number] cc: Dr. Hairston
[2018-08-26] VITALS (8 sets, daily range): BP systolic 104–139; BP diastolic 47–75
--- NOTE | 2018-08-26 05:00 | NUR ---
patient states does not purewick any more at this time, she will call when she feels like peeing and if she wants the purewick she will inform nursing.
--- NOTE | 2018-08-26 06:00 | NUR ---
No bm, stool collection needed for occult blood, will inform day nurse to follow up.
--- NOTE | 2018-08-26 06:30 | NUR ---
patient endorsed to next shift for continuity of care.
[2018-08-26 06:42] LABS: BASOPHILS % 0.5 % (0.0-1.0); EOSINOPHILS # (AUTO) 0.6 (0.0-0.4); EOSINOPHILS % 9.6 % (0.0-6.0); HEMATOCRIT 27.1 % (34.2-44.1); HEMOGLOBIN 8.4 g/dL (12.0-16.0); LYMPHOCYTES # (AUTO) 0.9 (1.0-3.2); LYMPHOCYTES % 14.2 % (18.0-39.1); MEAN CORPUSCULAR HEMOGLOBIN 26.8 pg (28-32); MEAN CORPUSCULAR VOLUME 86.3 fL (81-99); MONOCYTES # (AUTO) 0.6 (0.2-0.8); MONOCYTES % 10.3 % (4.4-11.3); NEUTROPHILS # (AUTO) 3.9 (2.1-6.9); NEUTROPHILS % 65.2 % (38.7-80.0); PLATELET COUNT 183 x10e3/uL (140-360); RED BLOOD COUNT 3.14 x10e6/uL (3.6-5.1); RED CELL DISTRIBUTION WIDTH 16.1 % (11.7-14.4)
[2018-08-26 06:59] LABS: ALBUMIN 2.9 g/dL (3.5-5.0); ALBUMIN/GLOBULIN RATIO 0.7 (0.8-2.0); ANION GAP 11.8 mmol/L (8-16); CALCIUM 9.1 mg/dL (8.4-10.2); CREATININE, SERUM 1.32 mg/dL (0.57-1.11); POTASSIUM 3.8 mmol/L (3.5-5.1)
--- NOTE | 2018-08-26 07:16 | NUR ---
Walking rounds completed at this time. Patient is A&Ox3. Patient is sitting up in bed. Patient states she has no pain. No signs of distress noted. Call law is within reach.
[2018-08-26] MEDS: INSULIN LISPRO 100 UNIT/1 ML 3ML VIAL SQ SCH ×4 (07:30→21:55)
[2018-08-26] MEDS: LANOLIN 4.5 OZ OINT TP SCH (09:52)
[2018-08-26] MEDS: DIGOXIN 0.125 MG TAB PO SCH (09:52)
[2018-08-26] MEDS: METOPROLOL SUCCINATE 50 MG TAB XL PO SCH (09:52)
[2018-08-26] MEDS: RIVAROXABAN 15 MG TABLET PO SCH (09:52)
[2018-08-26] MEDS: CLOPIDOGREL BISULFATE 75 MG TAB PO SCH (09:52)
[2018-08-26] MEDS: IRON SUCROSE 100 MG in SODIUM CHLORIDE 0.9% 100 ML 100 ML IV SCH (09:53)
[2018-08-26] MEDS: FUROSEMIDE INJ 10 MG/ML 4 ML VIAL IV SCH ×2 (09:53→17:48)
[2018-08-26] MEDS: PANTOPRAZOLE SOD 40 MG TABEC PO SCH (09:53)
[2018-08-26] MEDS: HYDRALAZINE HCL 25 MG TAB PO SCH ×3 (09:53→21:50)
--- NOTE | 2018-08-26 13:59 | NUR ---
PATIENT WITH [facility] PRIOR TO ADMISSION. PATIENT WANTS TO RESUME HOME HEALTH. RESUMPTION OF HOME HEALTH ORDER PLACED. CLINICAL SENT TO HOME HEALTH AGENCY. PATIENT PENDING DISCHARGE TODAY. PATIENT TO CONTINUE RECEIVING HOME BERT SERVICES FROM: [facility] (P) [phone] (F) [phone] LIAHECTOR HUBBARD NOTIFIED.
--- NOTE | 2018-08-26 16:11 | NUR ---
IMM letter delivered and explained to pt. She verbalized understanding. Signed copy placed in chart. Copy placed in pt's transition of care folder.
--- NOTE | 2018-08-26 17:46 | Diagnostic Imaging Report ---
Exam: Left breast ultrasound History: Swelling Comparison: None available Findings: Scanning of the entire left breast to include the retroareolar region and left axilla was accomplished. There is diffuse edema of the skin and soft tissues. No breast mass is identified. No drainable fluid collection. Impression: Diffuse edema of the skin and soft tissues Signed by: Dr. Heber Hyatt DO on 08/26/2018 5:42 PM
[2018-08-26] MEDS: VALSARTAN 160 MG TAB PO SCH (17:48)
[2018-08-26] MEDS: AMLODIPINE BESYLATE 10 MG TAB PO SCH (17:49)
[2018-08-26] MEDS: SIMVASTATIN 40 MG TAB PO SCH (21:55)
[2018-08-27] VITALS (9 sets, daily range): BP systolic 114–154; BP diastolic 53–88
--- NOTE | 2018-08-27 03:45 | NUR ---
UPON MAKING ROUNDS PATIENT IS RESTING COMFORTABLY, BOTH EYES CLOSED, NASAL CANNULA IN PLACE. PATIENT SHOWS NO SIGNS OF RESPIRATORY DISTRESS, BED ALARM IS ARMED, BED LOW IN PLACE, CALL LIGHT WITHIN REACH, CONTINUING TO MONITOR.
--- NOTE | 2018-08-27 07:00 | NUR ---
RCD PT AT BED PT IS ALERT AND ORIENTED PT RESTING ON BED IV PATENT BED LOW AND LOCKED CALL LIGHT IN REACH
[2018-08-27 07:15] LABS: BASOPHILS % 0.4 % (0.0-1.0); EOSINOPHILS # (AUTO) 0.6 (0.0-0.4); EOSINOPHILS % 11.1 % (0.0-6.0); HEMATOCRIT 26.4 % (34.2-44.1); LYMPHOCYTES # (AUTO) 0.7 (1.0-3.2); LYMPHOCYTES % 12.4 % (18.0-39.1); MEAN CORPUSCULAR HEMOGLOBIN 26.5 pg (28-32); MEAN CORPUSCULAR HGB CONC 30.3 g/dL (31-35); MEAN CORPUSCULAR VOLUME 87.4 fL (81-99); MONOCYTES # (AUTO) 0.7 (0.2-0.8); MONOCYTES % 12.4 % (4.4-11.3); NEUTROPHILS # (AUTO) 3.4 (2.1-6.9); NEUTROPHILS % 63.5 % (38.7-80.0); PLATELET COUNT 172 x10e3/uL (140-360); RED BLOOD COUNT 3.02 x10e6/uL (3.6-5.1); RED CELL DISTRIBUTION WIDTH 16.1 % (11.7-14.4)
[2018-08-27] MEDS: INSULIN LISPRO 100 UNIT/1 ML 3ML VIAL SQ SCH ×4 (07:30→21:00)
[2018-08-27] MEDS: PANTOPRAZOLE SOD 40 MG TABEC PO SCH (07:30)
[2018-08-27 07:34] LABS: ALBUMIN 2.9 g/dL (3.5-5.0); ALBUMIN/GLOBULIN RATIO 0.8 (0.8-2.0); ANION GAP 11.7 mmol/L (8-16); CALCIUM 9.1 mg/dL (8.4-10.2); CREATININE, SERUM 1.29 mg/dL (0.57-1.11); POTASSIUM 3.7 mmol/L (3.5-5.1)
[2018-08-27] MEDS: IRON SUCROSE 100 MG in SODIUM CHLORIDE 0.9% 100 ML 100 ML IV SCH (08:00)
[2018-08-27] MEDS: LANOLIN 4.5 OZ OINT TP SCH (09:00)
[2018-08-27] MEDS: RIVAROXABAN 15 MG TABLET PO SCH (09:00)
[2018-08-27] MEDS: FUROSEMIDE INJ 10 MG/ML 4 ML VIAL IV SCH ×2 (09:00→16:56)
[2018-08-27] MEDS: HYDRALAZINE HCL 25 MG TAB PO SCH ×3 (09:00→21:00)
[2018-08-27] MEDS: METOPROLOL SUCCINATE 50 MG TAB XL PO SCH (09:00)
[2018-08-27] MEDS: DIGOXIN 0.125 MG TAB PO SCH (09:00)
[2018-08-27] MEDS: CLOPIDOGREL BISULFATE 75 MG TAB PO SCH (09:00)
--- NOTE | 2018-08-27 12:04 | NUR ---
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
--- NOTE | 2018-08-27 15:00 | NUR ---
A/C TO TOOL MECHANIC AGAIN PAGED DR HILL AND REMIND ABOUT DISCHARGE IF THE PT PT IS HURRY TO GO DISCHARGE OR KEEP THE PT ONE MORE NIGHT PT WANTED TO GO HOME ONLY ON TOMORROW SHE WANTED TO SEE DR HILL ON TOMORROW
[2018-08-27] MEDS: VALSARTAN 160 MG TAB PO SCH (16:56)
[2018-08-27] MEDS: AMLODIPINE BESYLATE 10 MG TAB PO SCH (16:57)
--- NOTE | 2018-08-27 18:40 | NUR ---
PT RESTING ON BED BED SIDE REPORT GIVEN TO ONCOMING NURSE
[2018-08-27] MEDS: SIMVASTATIN 40 MG TAB PO SCH (21:00)
[2018-08-28 04:00] VITALS: BP 126/52
[2018-08-28 06:10] LABS: BASOPHILS % 0.5 % (0.0-1.0); EOSINOPHILS # (AUTO) 0.9 (0.0-0.4); EOSINOPHILS % 14.2 % (0.0-6.0); HEMATOCRIT 27.1 % (34.2-44.1); HEMOGLOBIN 8.3 g/dL (12.0-16.0); LYMPHOCYTES # (AUTO) 0.9 (1.0-3.2); LYMPHOCYTES % 13.6 % (18.0-39.1); MEAN CORPUSCULAR HEMOGLOBIN 26.6 pg (28-32); MEAN CORPUSCULAR HGB CONC 30.6 g/dL (31-35); MEAN CORPUSCULAR VOLUME 86.9 fL (81-99); MONOCYTES # (AUTO) 0.7 (0.2-0.8); MONOCYTES % 10.4 % (4.4-11.3); NEUTROPHILS # (AUTO) 3.8 (2.1-6.9); NEUTROPHILS % 61.1 % (38.7-80.0); PLATELET COUNT 187 x10e3/uL (140-360); RED BLOOD COUNT 3.12 x10e6/uL (3.6-5.1); RED CELL DISTRIBUTION WIDTH 16.3 % (11.7-14.4)
[2018-08-28 06:25] LABS: ALBUMIN 2.9 g/dL (3.5-5.0); ALBUMIN/GLOBULIN RATIO 0.8 (0.8-2.0); ANION GAP 11.8 mmol/L (8-16); CALCIUM 9.2 mg/dL (8.4-10.2); CREATININE, SERUM 1.16 mg/dL (0.57-1.11); POTASSIUM 3.8 mmol/L (3.5-5.1)
--- NOTE | 2018-08-28 07:10 | NUR ---
RCD PT AT BED PT IS ALERT AND ORIENTED PT RESTING ON BED IV PATENT BED LOW AND LOCKED CALL LIGHT IN REACH
[2018-08-28] MEDS: INSULIN LISPRO 100 UNIT/1 ML 3ML VIAL SQ SCH (07:30)
[2018-08-28] MEDS: PANTOPRAZOLE SOD 40 MG TABEC PO SCH (07:30)
[2018-08-28] MEDS: IRON SUCROSE 100 MG in SODIUM CHLORIDE 0.9% 100 ML 100 ML IV SCH (08:00)
[2018-08-28 08:27] VITALS: BP 127/58
[2018-08-28 09:00] VITALS: BP 127/58
[2018-08-28] MEDS: LANOLIN 4.5 OZ OINT TP SCH (09:00)
[2018-08-28] MEDS: HYDRALAZINE HCL 25 MG TAB PO SCH (09:00)
[2018-08-28] MEDS: CLOPIDOGREL BISULFATE 75 MG TAB PO SCH (09:00)
[2018-08-28] MEDS: RIVAROXABAN 15 MG TABLET PO SCH (09:00)
[2018-08-28] MEDS: DIGOXIN 0.125 MG TAB PO SCH (09:00)
[2018-08-28] MEDS: FUROSEMIDE INJ 10 MG/ML 4 ML VIAL IV SCH (09:00)
[2018-08-28] MEDS: METOPROLOL SUCCINATE 50 MG TAB XL PO SCH (09:00)
--- NOTE | 2018-08-28 09:30 | NUR ---
PAGED AND NOTIFIED THE HB LEVEL TO DR HILL GOT THE DISCHARGE ORDER
--- NOTE | 2018-08-28 13:05 | NUR ---
PT WENT HOME IN SAFE CONDITION WITH HER DAUGHTER
--- NOTE | 2018-08-31 08:53 | Discharge Summary ---
DISCHARGE DIAGNOSES: 1. Anemia. 2. Congestive heart failure. 3. Diabetes. 4. Hypertension. HISTORY OF PRESENT ILLNESS AND HOSPITAL COURSE: See hospital chart for full details. The patient is a lady, brought in with acute shortness of breath, was found to have anemia of unknown reasons. She did receive 1 unit of transfusion. She did have significant improvement of her symptoms. Her lowest hemoglobin was 7.3, at discharge she was at 8.3. I had a discussion with the patient if she wanted to do any type of therapy or rehab, she said no, she wanted to go home. I did ultrasounds of the extremities to rule out DVTs, they were negative. Per the patient's wishes, she was discharged home with medical management once she was cleared by Cardiology. She will follow up in 1-2 weeks with me as well as Cardiology. Please see hospital chart for full details. MD SANDY Garcia/ADI /[id number]
== END 2018-08-28 13:05 | disposition home health service (06) | DRG 291 ==
LOC: ER 12:29 → ERHOLD 16:00 → IMCU 18:14 → MED/SURG2 08-23 15:27 → OBSVTOIN 08-24 08:11
PROVIDERS: ADMIT Internal Medicine; ATTEND Internal Medicine
PROC: 5A09357 Assistance with Respiratory Ventilation, Less than 24 Consecutive Hours, Continuous Positive Airway Pressure (ICD-10-PCS; principal; 2018-08-21)
PROC: 30233N1 Transfusion of Nonautologous Red Blood Cells into Peripheral Vein, Percutaneous Approach (ICD-10-PCS; 2018-08-22)
DX: I13.0 Hypertensive heart and chronic kidney disease with heart failure and stage 1 through stage 4 chronic kidney disease, or unspecified chronic kidney disease (principal); I50.33 Acute on chronic diastolic (congestive) heart failure; J96.90 Respiratory failure, unspecified, unspecified whether with hypoxia or hypercapnia; Z68.41 Body mass index [BMI] 40.0-44.9, adult; N18.3 Chronic kidney disease, stage 3 (moderate); E11.22 Type 2 diabetes mellitus with diabetic chronic kidney disease; D50.9 Iron deficiency anemia, unspecified; I48.2 Chronic atrial fibrillation; J44.9 Chronic obstructive pulmonary disease, unspecified; E78.5 Hyperlipidemia, unspecified; E11.65 Type 2 diabetes mellitus with hyperglycemia; I25.10 Atherosclerotic heart disease of native coronary artery without angina pectoris; E66.9 Obesity, unspecified; I08.1 Rheumatic disorders of both mitral and tricuspid valves; R53.81 Other malaise; Z79.84 Long term (current) use of oral hypoglycemic drugs; Z79.01 Long term (current) use of anticoagulants; Z95.0 Presence of cardiac pacemaker; Z87.891 Personal history of nicotine dependence; Z79.02 Long term (current) use of antithrombotics/antiplatelets; Z87.440 Personal history of urinary (tract) infections
CPT/HCPCS: 36415; 71045; 80048; 80053; 80061; 81001; 82150; 82550; 82553; 82805; 82948; 83036; 83540; 83690; 83735; 83880; 84436; 84443; 84466; 84479; 84484; 85025; 85610; 85730; 86850; 86900; 86920; 93005; 93306; 93971; 94640; 94660; 96372; 97139; 99285; G0378; J1756; J1940; J7050; P9016

== ENCOUNTER 2018-10-01 18:22 | Inpatient (IN) | payer MEDICARE ==
[~2018-10-01] VITALS: Ht 162.6 cm; Wt 104.8 kg
[2018-10-01] MEDS ORDERED: FUROSEMIDE INJ 10 MG/ML 4 ML VIAL IV ONE (19:00)
[2018-10-01 19:02] LABS: BASOPHILS % 0.3 % (0.0-1.0); EOSINOPHILS % 0.3 % (0.0-6.0); HEMATOCRIT 28.5 % (34.2-44.1); HEMOGLOBIN 8.6 g/dL (12.0-16.0); LYMPHOCYTES # (AUTO) 0.8 (1.0-3.2); LYMPHOCYTES % 10.4 % (18.0-39.1); MEAN CORPUSCULAR HGB CONC 30.2 g/dL (31-35); MEAN CORPUSCULAR VOLUME 82.8 fL (81-99); MONOCYTES # (AUTO) 0.6 (0.2-0.8); MONOCYTES % 8.8 % (4.4-11.3); NEUTROPHILS # (AUTO) 5.8 (2.1-6.9); NEUTROPHILS % 79.8 % (38.7-80.0); PLATELET COUNT 244 x10e3/uL (140-360); RED BLOOD COUNT 3.44 x10e6/uL (3.6-5.1); RED CELL DISTRIBUTION WIDTH 17.2 % (11.7-14.4)
[2018-10-01 19:14] LABS: INR 2.6; PARTIAL THROMBOPLASTIN TIME 33.4 seconds (23.8-35.5); PROTHROMBIN TIME 28.6 seconds (11.9-14.5)
[2018-10-01 19:24] LABS: ALBUMIN 3.2 g/dL (3.5-5.0); ALBUMIN/GLOBULIN RATIO 0.8 (0.8-2.0); ANION GAP 16.3 mmol/L (8-16); CALCIUM 9.2 mg/dL (8.4-10.2); CREATININE, SERUM 1.29 mg/dL (0.57-1.11); POTASSIUM 4.3 mmol/L (3.5-5.1)
[2018-10-01 19:31] LABS: CREATINE KINASE MB 4.4 ng/mL (0-5.0)
--- NOTE | 2018-10-01 20:10 | Diagnostic Imaging Report ---
A single frontal view of the chest. HISTORY: Shortness of breath, generalized weakness, COPD and CHF COMPARISON: Chest radiograph August 22, 2018 DISCUSSION: Portable technique, limits sensitivity of the exam. Soft tissue attenuation partially limits sensitivity of the exam. Tubes/Lines: Left-sided dual-lead implanted cardiac device. Lungs and pleura: Low lung volumes result in bibasilar vascular crowding, accentuation of the pulmonary interstitial markings, central pulmonary vasculature, and the cardiac silhouette. Allowing for these limitations, the findings are as follows: Diffusely increased pulmonary interstitial markings. More confluent patchy central and bibasilar opacities. Moderate to large bilateral pleural effusions with adjacent atelectasis. Heart and mediastinum: The cardiac silhouette is predominantly obscured. The central pulmonary vascular is enlarged. Bones and soft tissues: Appear unremarkable, given this limited exam. IMPRESSION: 1. Findings compatible with interval increased volume overload resulting in moderate pulmonary edema, bilateral pleural effusions, and adjacent atelectasis. 2. Recommend short term follow up routine PA and lateral chest read graft, in 6-8 weeks, to evaluate for resolution. Signed by: Dr. Adolfo Hughes D.O., M.M.M. on 10/01/2018 8:06 PM
[2018-10-01 21:00] VITALS: BP 128/76
[2018-10-01] MEDS ORDERED: SODIUM CHLORIDE FLUSH 10 ML SYR INJ PRN (21:00)
[2018-10-01] MEDS ORDERED: DEXTROSE 50% SYRINGE 50 ML IV PRN (21:00)
[2018-10-01] MEDS: INSULIN REGULAR, HUMAN 100 UNIT/1 ML 3ML VIAL SQ SCH (22:17)
[2018-10-01 22:31] VITALS: BP 129/59
[2018-10-02] VITALS (8 sets, daily range): BP systolic 124–153; BP diastolic 59–65
--- NOTE | 2018-10-02 04:48 | NUR ---
Dr. Anh rene for consult.
[2018-10-02] MEDS: INSULIN REGULAR, HUMAN 100 UNIT/1 ML 3ML VIAL SQ SCH ×4 (07:30→21:57)
[2018-10-02] MEDS: FUROSEMIDE INJ 10 MG/ML 4 ML VIAL IV SCH ×2 (08:20→16:35)
[2018-10-02] MEDS: CLOPIDOGREL BISULFATE 75 MG TAB PO SCH (08:20)
[2018-10-02] MEDS: GLIMEPIRIDE 2 MG TAB PO SCH ×2 (08:20→16:35)
[2018-10-02] MEDS: METOPROLOL SUCCINATE 50 MG TAB XL PO SCH (08:20)
[2018-10-02] MEDS: HYDRALAZINE HCL 25 MG TAB PO SCH ×3 (08:20→21:57)
[2018-10-02] MEDS: FLUCONAZOLE 100 MG TAB PO SCH (08:20)
[2018-10-02] MEDS: RIVAROXABAN 10 MG TABLET PO SCH (08:20)
[2018-10-02] MEDS: DIGOXIN 0.125 MG TAB PO SCH (08:20)
[2018-10-02] MEDS: LINAGLIPTIN 5 MG PO SCH (08:21)
[2018-10-02] MEDS: INVOKANA 100MG PO SCH (08:21)
[2018-10-02] MEDS: SIMVASTATIN 20 MG TAB PO SCH (08:21)
[2018-10-02] MEDS ORDERED: NON-FORMULARY MEDICATION (Linagliptin (Tradjenta) 5 MG) PO SCH (09:00)
[2018-10-02] MEDS ORDERED: INVOKANA 100 MG PO SCH (09:00)
--- NOTE | 2018-10-02 13:23 | Consultation ---
DATE OF CONSULTATION: 10/02/2018 Cardiology Consultation CHIEF COMPLAINT: The patient is a 78-year-old with weakness and shortness of breath. HISTORY OF PRESENT ILLNESS: The patient came to the emergency room with extreme weakness. The patient said she was so weak she could hardly get out of bed. The patient also reported shortness of breath and increased peripheral edema. The patient had no chest pain, no nausea, no vomiting, no abdominal pain, no fevers. PAST MEDICAL HISTORY: Significant for, 1. Recurrent diastolic heart failure. 2. Chronic atrial fibrillation. 3. Permanent pacemaker. 4. Chronic kidney disease. 5. Hypertension. SOCIAL HISTORY: The patient does not drink and does not smoke. FAMILY HISTORY: There is no known family history of coronary artery disease. PHYSICAL EXAMINATION: GENERAL: The patient is an older female, in no obvious distress. VITAL SIGNS: Included a temperature of 98.8, pulse of 60, blood pressure of 130/70. HEAD, EARS, EYES, NOSE, and THROAT: The patient's cranium was normocephalic and atraumatic. Extraocular muscles were intact. Sclerae were anicteric. Pupils were equal, round, and reactive to light. CHEST: Demonstrated rhonchi and rales bilaterally. CARDIAC: Demonstrated a normal S1 and S2 with a short 2/6 systolic murmur. ABDOMEN: Demonstrated good bowel sounds. No tenderness and no masses. EXTREMITIES: There was 2 to 3+ edema bilaterally. NEUROLOGIC: The patient was alert and oriented. Cranial nerves were intact. The patient was moving all limbs. DATA: The patient's EKG demonstrated atrioventricular pacing. IMPRESSION: The patient is a 78-year-old admitted with recurrent diastolic congestive heart failure. RECOMMENDATIONS: 1. The patient will need to be diuresed with IV Lasix. 2. The patient will need to be continued on ALBERT inhibitors and beta-blockers. 3. A repeat echocardiogram has been ordered. MD ALICE Mo/MODL /[id number] cc: Mao Gibbons MD
--- NOTE | 2018-10-02 15:11 | NUR ---
Nutrition Screen Note RD Recommendation for Physician: -Rec adding cardiac to ADA diet Plan of Care: RD following, monitoring for tolerance and adequacy Nutrition reason for involvement: Diagnosis Primary Diagnose(s): recurrent diastolic congestive heart failure PMH: 1. Recurrent diastolic heart failure. 2. Chronic atrial fibrillation. 3. Permanent pacemaker. 4. Chronic kidney disease. 5. Hypertension. Ht: 64in Wt: 231lb BMI: 39.7kg/m2 IBW: 120lb RD Assessment: (10/02) Chart reviewed. Labs and meds reviewed. 78yo F, who was admitted for CHF. Visited pt in the room. Pt reports good appetite with 75% observed lunch intake. No complains of nausea or vomiting. Normal BM. Pt denies any chewing or swallowing difficulty. 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 Unknown weight hx due to fluids retention. Will continue to monitor and follow. Current Diet: ADA diet Malnutrition Evaluation (10/02) The patient does not meet criteria for a specified degree of malnutrition at this time. Will re-evaluate at follow-up as appropriate. Diet Education Needs Assessment: Diet education indicated, pt received diet education on 07/2018. No questions from patient regarding diet at this time. Nutrition Care Level: low Signed: Xiomara Bernabe, MS, RD, LD
[2018-10-02 15:25] LABS: CREATINE KINASE MB 3.7 ng/mL (0-5.0)
--- NOTE | 2018-10-02 19:11 | NUR ---
received patient aaox3, resting in bed. stable condition. no needs voiced. bed locked and in lowest position, call light within easy reach. will continue to monitor patient.
[2018-10-03] VITALS (8 sets, daily range): BP systolic 119–140; BP diastolic 54–66
[2018-10-03 06:00] LABS: BASOPHILS % 0.4 % (0.0-1.0); EOSINOPHILS # (AUTO) 0.1 (0.0-0.4); EOSINOPHILS % 2.2 % (0.0-6.0); HEMATOCRIT 25.3 % (34.2-44.1); HEMOGLOBIN 7.5 g/dL (12.0-16.0); LYMPHOCYTES # (AUTO) 1.1 (1.0-3.2); LYMPHOCYTES % 21.2 % (18.0-39.1); MEAN CORPUSCULAR HEMOGLOBIN 25.3 pg (28-32); MEAN CORPUSCULAR HGB CONC 29.6 g/dL (31-35); MEAN CORPUSCULAR VOLUME 85.2 fL (81-99); MONOCYTES # (AUTO) 0.6 (0.2-0.8); NEUTROPHILS # (AUTO) 3.4 (2.1-6.9); NEUTROPHILS % 63.8 % (38.7-80.0); PLATELET COUNT 194 x10e3/uL (140-360); RED BLOOD COUNT 2.97 x10e6/uL (3.6-5.1)
[2018-10-03 06:19] LABS: ALBUMIN 2.7 g/dL (3.5-5.0); ALBUMIN/GLOBULIN RATIO 0.8 (0.8-2.0); ANION GAP 12.4 mmol/L (8-16); CALCIUM 8.9 mg/dL (8.4-10.2); CREATININE, SERUM 1.08 mg/dL (0.57-1.11); POTASSIUM 4.4 mmol/L (3.5-5.1)
--- NOTE | 2018-10-03 06:48 | NUR ---
notified dr. he of drop in hgb, orders for labs tomorrow morning. orders entered.
--- NOTE | 2018-10-03 07:15 | NUR ---
PT RESTING IN BED AA0X3 PT HAS GENERALIZED EDEMA. LEFT UPPER EXTREMITY 4+ ELEVATED WITH PILLOW LOWER LEGS WITH SED . EDEMA 3+ PT IS ON IV LASIX TREATMENT PT IS ON 3.5 L NC TOLERATING WELL. NO SOB NOTED WILL CONTINUE TO MONITOR PT CLOSELY, SIDE RAILSX2, BED WHEELS LOCKED CALL LIGHT IS WITHIN EASY REACH, INSTRUCTED TO CALL FOR ASSISTANCE IF NEEDED
[2018-10-03] MEDS: INSULIN REGULAR, HUMAN 100 UNIT/1 ML 3ML VIAL SQ SCH ×4 (07:24→21:19)
[2018-10-03] MEDS: DIGOXIN 0.125 MG TAB PO SCH (07:47)
[2018-10-03] MEDS: CLOPIDOGREL BISULFATE 75 MG TAB PO SCH (07:47)
[2018-10-03] MEDS: FLUCONAZOLE 100 MG TAB PO SCH (07:47)
[2018-10-03] MEDS: FUROSEMIDE INJ 10 MG/ML 4 ML VIAL IV SCH ×2 (07:47→16:49)
[2018-10-03] MEDS: INVOKANA 100MG PO SCH (07:48)
[2018-10-03] MEDS: LINAGLIPTIN 5 MG PO SCH (07:48)
[2018-10-03] MEDS: HYDRALAZINE HCL 25 MG TAB PO SCH ×3 (07:48→21:19)
[2018-10-03] MEDS: SIMVASTATIN 20 MG TAB PO SCH (07:48)
[2018-10-03] MEDS: METOPROLOL SUCCINATE 50 MG TAB XL PO SCH (07:48)
[2018-10-03] MEDS: GLIMEPIRIDE 2 MG TAB PO SCH ×2 (07:48→16:49)
[2018-10-03] MEDS: RIVAROXABAN 10 MG TABLET PO SCH (07:48)
--- NOTE | 2018-10-03 10:14 | NUR ---
EDUCATED ABOUT IMM, SIGNED, FILED IN CHART, WITH COPY LEFT WITH FAMILY AT BEDSIDE.
--- NOTE | 2018-10-03 14:17 | NUR ---
MD GARCIA SPOKE WITH FAMILY MEMBER OF PT (RICHI BERNAL) AND HAS AGREED TO CONSULT A SURGEON TO REMOVE THAT TUMOR IN THE PARATHYROID GLAND Addendum: 10/05/18 at 1045 by Esperanza Moreno RN WRONG PT CHARTING
--- NOTE | 2018-10-03 19:10 | NUR ---
RECEIVED PATIENT AAOX3, SITTING IN CHAIR. NO DISTRESS OBSERVED. NO NEEDS VOICED. CALL LIGHT WITHIN EASY REACH. INSTRUCTED TO CALL FOR ASSISTANCE NEEDED, PATIENT VERBALIZED UNDERSTANDING. WILL CONTINUE TO MONITOR PATIENT.
[2018-10-04] VITALS (9 sets, daily range): BP systolic 119–161; BP diastolic 57–67
[2018-10-04 06:07] LABS: BASOPHILS % 0.3 % (0.0-1.0); EOSINOPHILS # (AUTO) 0.2 (0.0-0.4); EOSINOPHILS % 2.6 % (0.0-6.0); HEMATOCRIT 23.9 % (34.2-44.1); LYMPHOCYTES # (AUTO) 0.8 (1.0-3.2); LYMPHOCYTES % 13.7 % (18.0-39.1); MEAN CORPUSCULAR HEMOGLOBIN 24.6 pg (28-32); MEAN CORPUSCULAR HGB CONC 29.3 g/dL (31-35); MEAN CORPUSCULAR VOLUME 83.9 fL (81-99); MONOCYTES # (AUTO) 0.8 (0.2-0.8); MONOCYTES % 12.4 % (4.4-11.3); NEUTROPHILS # (AUTO) 4.3 (2.1-6.9); NEUTROPHILS % 70.8 % (38.7-80.0); PLATELET COUNT 191 x10e3/uL (140-360); RED BLOOD COUNT 2.85 x10e6/uL (3.6-5.1); RED CELL DISTRIBUTION WIDTH 16.7 % (11.7-14.4)
[2018-10-04 06:26] LABS: CALCIUM 8.8 mg/dL (8.4-10.2); CREATININE, SERUM 1.03 mg/dL (0.57-1.11)
[2018-10-04] MEDS ORDERED: SODIUM CHLORIDE 0.9% 250ML 250 ML IV ONE (06:30)
[2018-10-04 07:04] LABS: BILIRUBIN,URINE NEGATIVE (NEGATIVE); KETONES,URINE NEGATIVE (NEGATIVE); LEUKOCYTE ESTERASE ,URINE TRACE (NEGATIVE); NITRITE,URINE NEGATIVE (NEGATIVE); PROTEIN,URINE DIPSTICK NEGATIVE (NEGATIVE); URINE UROBILINOGEN 0.2 mg/dL (0.2 - 1)
--- NOTE | 2018-10-04 07:17 | NUR ---
Rcvd patient in report this am. Patient is awake in bed at this time. No s/s of distress noted
[2018-10-04 07:29] LABS: INR 1.26; PROTHROMBIN TIME 16.4 seconds (11.9-14.5)
[2018-10-04 07:35] LABS: CLARITY,URINE CLEAR (CLEAR); COLOR,URINE YELLOW (YELLOW)
[2018-10-04 07:39] LABS: BACTERIA,URINE FEW /HPF; EPITHELIAL CELLS,URINE MODERATE /LPF; RBC,URINE 0-5 /HPF (0-5); WBC,URINE (MAN) 0-5 /HPF (0-5)
[2018-10-04] MEDS: GLIMEPIRIDE 2 MG TAB PO SCH ×2 (08:36→16:33)
[2018-10-04] MEDS: INVOKANA 100MG PO SCH (08:36)
[2018-10-04] MEDS: LINAGLIPTIN 5 MG PO SCH (08:37)
[2018-10-04] MEDS: RIVAROXABAN 15 MG TABLET PO SCH (08:37)
[2018-10-04] MEDS: HYDRALAZINE HCL 25 MG TAB PO SCH ×3 (08:37→22:00)
[2018-10-04] MEDS: CLOPIDOGREL BISULFATE 75 MG TAB PO SCH (08:37)
[2018-10-04] MEDS: METOPROLOL SUCCINATE 50 MG TAB XL PO SCH (08:37)
[2018-10-04] MEDS: FLUCONAZOLE 100 MG TAB PO SCH (08:37)
[2018-10-04] MEDS: DIGOXIN 0.125 MG TAB PO SCH (08:37)
--- NOTE | 2018-10-04 08:38 | Progress Note ---
DATE: 10/04/2018 SUBJECTIVE: The patient is admitted for wfean-sj-[id number] congestive heart failure. The patient is currently asymptomatic; however, the hemoglobin and hematocrit have dropped and has been trending down. The patient has no chest pain. No shortness of breath. No visible signs of bleed. No rectal bleeding noted. No hematochezia. No hematemesis. No chest pain and no shortness of breath. Lying comfortably. OBJECTIVE: VITAL SIGNS: Temperature is 96.6, pulse of 65, respirations of 20, blood pressure is 135/60. HEENT: Normocephalic, atraumatic. The patient has O2 by nasal cannula. CVS: S1 and S2 normal. Regular rate and rhythm. ABDOMEN: Nontender, nondistended. EXTREMITIES: Positive for edema. LABORATORY VALUES: Today's hematology; hemoglobin is 7, yesterday was 7.5, hematocrit 23.9, yesterday 25.3, RDW 16.79, MCH of 24.6, MCHC of 29.3. The patient's chemistries; sodium is 140, potassium is 4.4, BUN of 41, creatinine 1.08, magnesium is 2.4 yesterday, and alkaline phosphatase was 185. Coags; INR of 2.6. ASSESSMENT: Uvpjc-lb-zksrzdo congestive heart failure, diastolic heart failure, chronic atrial fibrillation, history of pacemaker placement, chronic kidney disease, hypertension, anemia, probably blood loss secondary to anticoagulation. PLAN: Plan is to continue with IV Lasix at this time. ALBERT inhibitors and beta-blockades on-board. The patient's iron studies will be done. The patient also will get 1 unit of PRBC with 40 of Lasix in between. The patient is also on digoxin 0.25 for correction of rate control. Currently, the patient is on dual anticoagulation with clopidogrel and Xarelto. We will continue to monitor the patient. INR will be transfused if needed. Further recommendation per clinical course. For diabetes, the patient is also on glimepiride 4 mg a day and insulin sliding scale. MD TIMI KearneyJ/MODL /[id number]
[2018-10-04] MEDS: INSULIN REGULAR, HUMAN 100 UNIT/1 ML 3ML VIAL SQ SCH ×4 (08:41→22:00)
--- NOTE | 2018-10-04 08:45 | NUR ---
IV noted to be leaking. Removed IV from right wrist. Dressing in place.
[2018-10-04 08:46] LABS: IRON 19 ug/dL (50-170)
--- NOTE | 2018-10-04 09:17 | NUR ---
New IV started to the right forearm.
[2018-10-04] MEDS: FUROSEMIDE INJ 10 MG/ML 4 ML VIAL IV SCH ×2 (09:28→16:33)
--- NOTE | 2018-10-04 12:27 | NUR ---
patient is AAOx3. Patient lung grimes diminished to auscultation. Bowel sounds present x4. Left upper extremity edema noted. No c/o pain at this time. Patient receiving blood at this time. No s/s of distress noted.
[2018-10-04 13:11] LABS: % IRON SATURATION 6 % (15-50); TOTAL IRON BINDING CAPACITY 339 ug/dL (261-478); TRANSFERRIN 242 mg/dL (180-382)
[2018-10-04] MEDS: FUROSEMIDE INJ 10 MG/ML 2 ML VIAL IV PRN (13:28)
[2018-10-04] MEDS: SIMVASTATIN 40 MG TAB PO SCH (22:00)
[2018-10-05] VITALS (7 sets, daily range): BP systolic 118–169; BP diastolic 57–71
[2018-10-05 05:30] LABS: BASOPHILS % 0.3 % (0.0-1.0); EOSINOPHILS # (AUTO) 0.1 (0.0-0.4); EOSINOPHILS % 1.8 % (0.0-6.0); HEMATOCRIT 28.4 % (34.2-44.1); HEMOGLOBIN 8.4 g/dL (12.0-16.0); LYMPHOCYTES # (AUTO) 0.9 (1.0-3.2); LYMPHOCYTES % 11.4 % (18.0-39.1); MEAN CORPUSCULAR HEMOGLOBIN 24.9 pg (28-32); MEAN CORPUSCULAR HGB CONC 29.6 g/dL (31-35); MONOCYTES # (AUTO) 0.9 (0.2-0.8); MONOCYTES % 11.9 % (4.4-11.3); NEUTROPHILS # (AUTO) 5.8 (2.1-6.9); NEUTROPHILS % 74.2 % (38.7-80.0); PLATELET COUNT 208 x10e3/uL (140-360); RED BLOOD COUNT 3.38 x10e6/uL (3.6-5.1); RED CELL DISTRIBUTION WIDTH 16.6 % (11.7-14.4)
[2018-10-05 05:52] LABS: CALCIUM 9.3 mg/dL (8.4-10.2); CREATININE, SERUM 1.02 mg/dL (0.57-1.11)
--- NOTE | 2018-10-05 06:20 | NUR ---
Notified Dr. Hairston of critical glucose this morning. Amaryl stopped per orders. Dextrose given at 0608, will reassess. Addendum: 10/05/18 at 0625 by Yari Lewis RN patient aaox3, stable condition, asymptomatic at 0608. blood glucose now 205 at this time.
--- NOTE | 2018-10-05 07:15 | NUR ---
wrong pt charting Addendum: 10/05/18 at 1045 by Esperanza Moreno RN GLORIA NOTE
--- NOTE | 2018-10-05 07:22 | NUR ---
PT RESTING IN BED AA0X3 PT HAS GENERALIZED EDEMA. LEFT UPPER EXTREMITY EDEMA HAS IMPROVED SIGNIFICANTLY AT 1+ LOWER LEGS WITH SED . EDEMA 2+ PT IS ON IV LASIX TREATMENT IV TO THE RIGHT FA 20 SL PATENT AND DRY PT IS ON 3.0 L NC TOLERATING WELL. NO SOB NOTED WILL CONTINUE TO MONITOR PT CLOSELY, SIDE RAILSX2, BED WHEELS LOCKED CALL LIGHT IS WITHIN EASY REACH, INSTRUCTED TO CALL FOR ASSISTANCE IF NEEDED
[2018-10-05] MEDS: INSULIN REGULAR, HUMAN 100 UNIT/1 ML 3ML VIAL SQ SCH ×4 (07:30→20:47)
[2018-10-05] MEDS: LINAGLIPTIN 5 MG PO SCH (08:00)
[2018-10-05] MEDS: CLOPIDOGREL BISULFATE 75 MG TAB PO SCH (08:00)
[2018-10-05] MEDS: FLUCONAZOLE 100 MG TAB PO SCH (08:00)
[2018-10-05] MEDS: RIVAROXABAN 15 MG TABLET PO SCH (08:00)
[2018-10-05] MEDS: INVOKANA 100MG PO SCH (08:00)
[2018-10-05] MEDS: DIGOXIN 0.125 MG TAB PO SCH (08:00)
[2018-10-05] MEDS: METOPROLOL SUCCINATE 50 MG TAB XL PO SCH (08:00)
[2018-10-05] MEDS: HYDRALAZINE HCL 25 MG TAB PO SCH ×3 (08:00→20:46)
[2018-10-05] MEDS: FUROSEMIDE INJ 10 MG/ML 4 ML VIAL IV SCH ×2 (08:00→16:44)
[2018-10-05] MEDS: IRON SUCROSE 100 MG in SODIUM CHLORIDE 0.9% 100 ML 100 ML IV SCH (08:05)
--- NOTE | 2018-10-05 10:32 | Progress Note ---
DATE: 10/05/2018 SUBJECTIVE: 78-year-old female comes in with acute congestive heart failure, acute on chronic. Currently, the patient had a drop in blood sugars all the way to the 40s. The patient was given D50, asymptomatic. No chest pains. No shortness of breath. The patient was not diaphoretic. No nausea, vomiting, diarrhea, or loss of consciousness. OBJECTIVE: VITAL SIGNS: Temperature is 97.4, pulse of 61, respirations of 20, blood pressure is 137/62, and pulse ox of 95%. HEENT: Normocephalic and atraumatic. O2 by nasal cannula. CVS: S1 and S2, irregular. ABDOMEN: Nontender and nondistended. EXTREMITIES: No clubbing, positive for edema. LABORATORY VALUES: Hemoglobin is 8.4, hematocrit 28.4, MCV is 84.5. Chemistries show sodium of 140, potassium 4.0, BUN of 40, creatinine of 1.02, glucose is 47 in the morning. The patient's coags were normal, compared to yesterday. Iron panel, iron was low of 19, TIBC was 339, percent saturation is and transferrin is 242, creatinine was 1.03. ASSESSMENT: Acute on chronic congestive heart failure, diastolic dysfunction, chronic atrial fibrillation, history of pacemaker placement, chronic kidney disease, hypertension, anemia chronic disease, and iron deficiency. PLAN: Continue with IV Lasix, ALBERT inhibitors, beta blockade. 1 unit of PRBC was given yesterday with 40 of Lasix. The patient to continue on digoxin. INR is normalized today. Further recommendation per clinical course. We will continue to monitor the patient. The patient is on sliding scale for diabetes and we will discontinue the glyburide secondary to hypoglycemic episode today. MD GAL Kearney/MODL /[id number]
--- NOTE | 2018-10-05 15:10 | NUR ---
Visit made by the Spiritual Care Department Pastoral Visitor, Te Blackwood. PV provided pastoral presence, hospitality, and supportive listening. Pastoral Visitor informed pt/family of the scope of Ergonomics Engineer Services and availability. GARY ZELAYA Review Trainer Spiritual Care Department O: [phone] Pager: [phone] ([phone] number calling from)
[2018-10-05] MEDS: SIMVASTATIN 40 MG TAB PO SCH (20:46)
--- NOTE | 2018-10-05 21:58 | NUR ---
Assessment done.no resp.distress.no pain voiced.repositioned .purewick applied.bed locked and in lowest position.phone and call light within reach.instructed to call for assistance as needed.
--- NOTE | 2018-10-05 23:36 | NUR ---
Iv is leaking.new iv started to right fore arm#20.patent.
[2018-10-06] VITALS (8 sets, daily range): BP systolic 130–145; BP diastolic 57–81
--- NOTE | 2018-10-06 04:10 | NUR ---
Repositioned .had no bowelmovement during night.
[2018-10-06 05:50] LABS: BASOPHILS % 0.2 % (0.0-1.0); EOSINOPHILS # (AUTO) 0.1 (0.0-0.4); EOSINOPHILS % 2.3 % (0.0-6.0); HEMATOCRIT 24.3 % (34.2-44.1); HEMOGLOBIN 7.3 g/dL (12.0-16.0); LYMPHOCYTES # (AUTO) 0.9 (1.0-3.2); LYMPHOCYTES % 17.3 % (18.0-39.1); MEAN CORPUSCULAR VOLUME 83.2 fL (81-99); MONOCYTES # (AUTO) 0.7 (0.2-0.8); MONOCYTES % 12.4 % (4.4-11.3); NEUTROPHILS # (AUTO) 3.6 (2.1-6.9); NEUTROPHILS % 67.6 % (38.7-80.0); PLATELET COUNT 168 x10e3/uL (140-360); RED BLOOD COUNT 2.92 x10e6/uL (3.6-5.1); RED CELL DISTRIBUTION WIDTH 16.6 % (11.7-14.4)
[2018-10-06] MEDS: IRON SUCROSE 100 MG in SODIUM CHLORIDE 0.9% 100 ML 100 ML IV SCH (06:04)
[2018-10-06 06:16] LABS: CALCIUM 8.9 mg/dL (8.4-10.2); CREATININE, SERUM 0.92 mg/dL (0.57-1.11)
--- NOTE | 2018-10-06 06:50 | NUR ---
Bedside shift report given to the oncoming rn.walking rounds done.stable condition.
[2018-10-06] MEDS: INSULIN REGULAR, HUMAN 100 UNIT/1 ML 3ML VIAL SQ SCH ×4 (07:30→21:00)
[2018-10-06] MEDS: LINAGLIPTIN 5 MG PO SCH (09:00)
[2018-10-06] MEDS: INVOKANA 100MG PO SCH (09:00)
[2018-10-06] MEDS: FUROSEMIDE INJ 10 MG/ML 4 ML VIAL IV SCH ×2 (09:46→18:14)
[2018-10-06] MEDS: HYDRALAZINE HCL 25 MG TAB PO SCH ×3 (09:46→21:57)
[2018-10-06] MEDS: DIGOXIN 0.125 MG TAB PO SCH (09:47)
[2018-10-06] MEDS: FLUCONAZOLE 100 MG TAB PO SCH (09:47)
[2018-10-06] MEDS: CLOPIDOGREL BISULFATE 75 MG TAB PO SCH (09:47)
[2018-10-06] MEDS: RIVAROXABAN 15 MG TABLET PO SCH (09:48)
[2018-10-06] MEDS: METOPROLOL SUCCINATE 50 MG TAB XL PO SCH (09:48)
--- NOTE | 2018-10-06 11:11 | NUR ---
EDUCATED ABOUT IMM, SIGNED, FILED IN CHART, WITH COPY LEFT WITH FAMILY AT BEDSIDE.
--- NOTE | 2018-10-06 15:21 | NUR ---
CM SPOKE WITH PATIENT AT BEDSIDE REGARDING DISCHARGE SCOOTER. PATIENT STATES SHE WOULD NOT MIND OUTPATIENT PHYSICAL THERAPY. CM CALLED DR. HILL AND LM REGARDING ORDERS NEEDED TO INITIATE OUTPATIENT PHYSICAL THERAPY SERVICES. PENDING RETURN CALL FOR ORDERS.
[2018-10-06] MEDS: SIMVASTATIN 40 MG TAB PO SCH (21:57)
[2018-10-07] VITALS (8 sets, daily range): BP systolic 121–147; BP diastolic 54–65
[2018-10-07 06:37] LABS: ALBUMIN 2.7 g/dL (3.5-5.0); ALBUMIN/GLOBULIN RATIO 0.8 (0.8-2.0); ANION GAP 12.1 mmol/L (8-16); CALCIUM 8.8 mg/dL (8.4-10.2); CREATININE, SERUM 1.04 mg/dL (0.57-1.11); POTASSIUM 4.1 mmol/L (3.5-5.1)
[2018-10-07 06:44] LABS: BASOPHILS % 0.3 % (0.0-1.0); EOSINOPHILS # (AUTO) 0.1 (0.0-0.4); EOSINOPHILS % 2.1 % (0.0-6.0); HEMATOCRIT 24.2 % (34.2-44.1); HEMOGLOBIN 7.2 g/dL (12.0-16.0); LYMPHOCYTES % 15.5 % (18.0-39.1); MEAN CORPUSCULAR HEMOGLOBIN 24.7 pg (28-32); MEAN CORPUSCULAR HGB CONC 29.8 g/dL (31-35); MEAN CORPUSCULAR VOLUME 83.2 fL (81-99); MONOCYTES # (AUTO) 0.8 (0.2-0.8); MONOCYTES % 12.9 % (4.4-11.3); NEUTROPHILS # (AUTO) 4.2 (2.1-6.9); NEUTROPHILS % 68.9 % (38.7-80.0); PLATELET COUNT 162 x10e3/uL (140-360); RED BLOOD COUNT 2.91 x10e6/uL (3.6-5.1); RED CELL DISTRIBUTION WIDTH 16.6 % (11.7-14.4)
[2018-10-07] MEDS: IRON SUCROSE 100 MG in SODIUM CHLORIDE 0.9% 100 ML 100 ML IV SCH (06:45)
--- NOTE | 2018-10-07 06:47 | NUR ---
PATIENT'S BLOOD GLUCOSE MEASURED AT 56. PATIENT IS ALERT/ORIENTED X3. PATIENT DRANK 177 ML OF PINEAPPLE JUICE TO ELEVATE BLOOD GLUCOSE
--- NOTE | 2018-10-07 07:00 | NUR ---
received am report from rn. pt is awake in bed, no s/s of distress. call light within reach, bed in lowest position, side rails up. pt has iron ivpb running in R FA 20g. iv site asymptomatic
[2018-10-07] MEDS: INSULIN REGULAR, HUMAN 100 UNIT/1 ML 3ML VIAL SQ SCH ×3 (07:30→21:00)
[2018-10-07] MEDS: FLUCONAZOLE 100 MG TAB PO SCH (08:53)
[2018-10-07] MEDS: INVOKANA 100MG PO SCH (08:53)
[2018-10-07] MEDS: HYDRALAZINE HCL 25 MG TAB PO SCH ×3 (08:53→21:37)
[2018-10-07] MEDS: LINAGLIPTIN 5 MG PO SCH (08:53)
[2018-10-07] MEDS: METOPROLOL SUCCINATE 50 MG TAB XL PO SCH (09:09)
[2018-10-07] MEDS: CLOPIDOGREL BISULFATE 75 MG TAB PO SCH (09:09)
[2018-10-07] MEDS: FUROSEMIDE INJ 10 MG/ML 4 ML VIAL IV SCH ×2 (09:09→17:24)
[2018-10-07] MEDS: DIGOXIN 0.125 MG TAB PO SCH (09:09)
[2018-10-07] MEDS: RIVAROXABAN 15 MG TABLET PO SCH (09:10)
[2018-10-07] MEDS: SIMVASTATIN 40 MG TAB PO SCH (21:36)
[2018-10-08] VITALS (8 sets, daily range): BP systolic 125–140; BP diastolic 54–64
[2018-10-08 06:10] LABS: BASOPHILS % 0.2 % (0.0-1.0); EOSINOPHILS # (AUTO) 0.1 (0.0-0.4); EOSINOPHILS % 2.1 % (0.0-6.0); LYMPHOCYTES % 16.8 % (18.0-39.1); MEAN CORPUSCULAR HGB CONC 30.1 g/dL (31-35); MEAN CORPUSCULAR VOLUME 83.1 fL (81-99); MONOCYTES # (AUTO) 0.7 (0.2-0.8); NEUTROPHILS # (AUTO) 3.9 (2.1-6.9); NEUTROPHILS % 67.5 % (38.7-80.0); PLATELET COUNT 171 x10e3/uL (140-360); RED BLOOD COUNT 2.72 x10e6/uL (3.6-5.1); RED CELL DISTRIBUTION WIDTH 16.8 % (11.7-14.4)
[2018-10-08 06:17] LABS: HEMOGLOBIN 6.8 g/dL (12.0-16.0)
[2018-10-08 06:18] LABS: HEMATOCRIT 22.6 % (34.2-44.1)
--- NOTE | 2018-10-08 06:18 | NUR ---
Contacted Dr. Gibbons for critical lab of Hgb = 6.7 Received order to give one unit of blood. Order placed. MD also want patient to continue with iron sucrose IV.
[2018-10-08] MEDS: IRON SUCROSE 100 MG in SODIUM CHLORIDE 0.9% 100 ML 100 ML IV SCH (06:45)
[2018-10-08] MEDS ORDERED: SODIUM CHLORIDE 0.9% 250ML 250 ML IV ONE (07:00)
[2018-10-08] MEDS: INSULIN REGULAR, HUMAN 100 UNIT/1 ML 3ML VIAL SQ SCH ×4 (07:30→21:30)
--- NOTE | 2018-10-08 07:42 | NUR ---
RECEIVED PATIENT AWAKE RESTING IN BED NO S/S OF DISTRESS. BED LOW, WHEELS LOCKED, SIDE RAILS X2. CALL LIGHT IN REACH. WILL CONTINUE TO MONITOR PATIENT.
[2018-10-08] MEDS: INVOKANA 100MG PO SCH (08:52)
[2018-10-08] MEDS: LINAGLIPTIN 5 MG PO SCH (08:52)
[2018-10-08] MEDS: DIGOXIN 0.125 MG TAB PO SCH (09:00)
[2018-10-08] MEDS: FUROSEMIDE INJ 10 MG/ML 4 ML VIAL IV SCH ×2 (09:06→16:19)
[2018-10-08] MEDS: CLOPIDOGREL BISULFATE 75 MG TAB PO SCH (09:06)
[2018-10-08] MEDS: RIVAROXABAN 15 MG TABLET PO SCH (09:06)
[2018-10-08] MEDS: METOPROLOL SUCCINATE 50 MG TAB XL PO SCH (09:06)
[2018-10-08] MEDS: FLUCONAZOLE 100 MG TAB PO SCH (09:06)
[2018-10-08] MEDS: HYDRALAZINE HCL 25 MG TAB PO SCH ×3 (09:06→21:39)
--- NOTE | 2018-10-08 10:55 | NUR ---
IV LEAKING. NEW IV STARTED TO LEFT UPPER ARM 20 GAUGE.
[2018-10-08] MEDS ORDERED: SODIUM CHLORIDE 0.9% 250ML 250 ML ONE (11:18)
--- NOTE | 2018-10-08 11:25 | NUR ---
BLOOD TRANSFUSION STARTED. PATIENT TOLERATING WELL, NO SIGNS OF DISTRESS. VITAL SIGNS STABLE. CALL LIGHT IN REACH. WILL CONTINUE TO MONITOR PATIENT.
--- NOTE | 2018-10-08 14:00 | NUR ---
BLOOD TRANSFUSION COMPLETE. VITAL SIGNS STABLE NO SIGNS OF DISTRESS. CALL LIGHT IN REACH WILL CONTINUE TO MONITOR PATIENT.
--- NOTE | 2018-10-08 14:06 | NUR ---
Nutrition Follow-up Note RD Recommendation for Physician: - Continue diet as ordered Plan of Care: Patient has been screened and assessed for nutrition risk. At this time, the patient does not pose any nutrition risk. No further nutrition intervention is warranted at this time. Will re-evaluate if consulted by medical staff. Nutrition reason for involvement: Follow up Primary Diagnose(s): recurrent diastolic congestive heart failure PMH: 1. Recurrent diastolic heart failure. 2. Chronic atrial fibrillation. 3. Permanent pacemaker. 4. Chronic kidney disease. 5. Hypertension. Ht: 64in Wt: 231lb BMI: 39.7kg/m2 IBW: 120lb RD Assessment: (10/08) Pt was discussed during AM rounds. + blood in stool; 1 unit of blood is given. Visited pt in the room. Pt reports eating well without any GI complains. Normal BM. Pt denies any chewing or swallowing issue. Current diet is adequate and appropriate. Stable weight. (10/02) Chart reviewed. Labs and meds reviewed. 78yo F, who was admitted for CHF. Visited pt in the room. Pt reports good appetite with 75% observed lunch intake. No complains of nausea or vomiting. Normal BM. Pt denies any chewing or swallowing difficulty. 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 Unknown weight hx due to fluids retention. Will continue to monitor and follow. Current Diet: ADA diet Malnutrition Evaluation (10/02) The patient does not meet criteria for a specified degree of malnutrition at this time. Will re-evaluate at follow-up as appropriate. Diet Education Needs Assessment: Diet education indicated, pt received diet education on 07/2018. No questions from patient regarding diet at this time. Nutrition Care Level: low Signed: Xiomara Bernabe, MS, RD, LD
[2018-10-08] MEDS: FUROSEMIDE INJ 10 MG/ML 2 ML VIAL IV PRN (15:17)
--- NOTE | 2018-10-08 17:29 | Consultation ---
DATE OF CONSULTATION: Gastroenterology Consultation REASON FOR CONSULTATION: Anemia. HISTORY OF PRESENT ILLNESS: Ms. Duran is a very pleasant 78-year-old woman with multiple comorbidities. She denies any overt bleeding. She has been noticed to have severe iron-deficiency anemia with a positive FOBT. She does not have any GI symptoms and has never had any endoscopy. PAST MEDICAL HISTORY: 1. Diastolic heart failure. 2. Atrial fibrillation. 3. Pacemaker. 4. Chronic kidney disease. 5. Hypertension. MEDICATIONS: Reviewed. Please see [facility] medication reconciliation form. ALLERGIES: REVIEWED. PLEASE SEE [facility] MEDICATION RECONCILIATION FORM. SOCIAL HISTORY: No alcohol, tobacco, or illicit substance. FAMILY HISTORY: No colon malignancy or bleeding problems in the family. REVIEW OF SYSTEMS: Ten system review is positive for weakness, shortness of breath, peripheral edema, otherwise is unremarkable. PHYSICAL EXAMINATION: GENERAL: Pleasant, alert, oriented, in no acute distress. HEENT: Pupils are equal, round, and reactive to light. NECK: Supple. LUNGS: Clear. CARDIOVASCULAR: S1, S2. ABDOMEN: Soft, nontender, nondistended. Normal bowel sounds. EXTREMITIES: No clubbing, cyanosis or edema. PSYCH: Calm and cooperative. NEUROLOGIC: Nonfocal. HEME/ONC: No bruising or adenopathy. Electronic health records reviewed for laboratory and radiologic studies as well as history. ASSESSMENT: 1. Iron-deficiency anemia with positive FOBT. 2. Cardiac issues. PLAN: At the current time, I would like to consider holding her Xarelto and proceeding with an upper endoscopy and colonoscopy on Saturday. Given her cardiac issues, it will be alright to continue the Plavix given the risks versus benefits profile. We may be limited in large polypectomies or other aggressive measures, however, for routine endoscopic intervention such as biopsies and small polyps should be fine. Thank you very much for asking us to see Ms. Duran. Any questions or concerns, please do not hesitate to contact me. I will follow with you. Michelle Jones MD RLS/MODL /[id number]
[2018-10-08] MEDS: SIMVASTATIN 40 MG TAB PO SCH (21:39)
--- NOTE | 2018-10-08 23:25 | NUR ---
Assessment done.no resp.distress.repositioned .bed locked and in lowest position.phone and call light within reach.instructed to call for assistance as needed.
[2018-10-09] VITALS (8 sets, daily range): BP systolic 140–176; BP diastolic 64–75
[2018-10-09 05:44] LABS: BASOPHILS % 0.3 % (0.0-1.0); EOSINOPHILS # (AUTO) 0.2 (0.0-0.4); EOSINOPHILS % 3.8 % (0.0-6.0); HEMATOCRIT 25.4 % (34.2-44.1); HEMOGLOBIN 7.7 g/dL (12.0-16.0); LYMPHOCYTES % 16.6 % (18.0-39.1); MEAN CORPUSCULAR HEMOGLOBIN 25.3 pg (28-32); MEAN CORPUSCULAR HGB CONC 30.3 g/dL (31-35); MEAN CORPUSCULAR VOLUME 83.6 fL (81-99); MONOCYTES # (AUTO) 0.6 (0.2-0.8); MONOCYTES % 10.2 % (4.4-11.3); NEUTROPHILS # (AUTO) 4.2 (2.1-6.9); NEUTROPHILS % 68.6 % (38.7-80.0); PLATELET COUNT 175 x10e3/uL (140-360); RED BLOOD COUNT 3.04 x10e6/uL (3.6-5.1); RED CELL DISTRIBUTION WIDTH 16.8 % (11.7-14.4)
[2018-10-09 05:57] LABS: CALCIUM 8.9 mg/dL (8.4-10.2); CREATININE, SERUM 1.02 mg/dL (0.57-1.11)
--- NOTE | 2018-10-09 06:28 | NUR ---
IRON SUCROSE NOT AVAILABLE IN THE PYXIS, MEDICINE BIN AND IN THE REFRIGERATOR.CALL PLACED TO PHARMACY.BUT I COULD NOT CONTACT THEM.NOTIFIED TO CHARGE NURSE.
--- NOTE | 2018-10-09 06:55 | NUR ---
Bed side shift report given to the oncoming rn.stable condition.
--- NOTE | 2018-10-09 07:18 | NUR ---
RECEIVED PATIENT AWAKE RESTING IN BED. NO SIGNS OF DISTRESS. BED LOW, WHEELS LOCKED, SIDE RAILS X2. CALL LIGHT IN REACH WILL CONTINUE TO MONITOR PATIENT.
[2018-10-09] MEDS: INVOKANA 100MG PO SCH (07:29)
[2018-10-09] MEDS: LINAGLIPTIN 5 MG PO SCH (07:29)
[2018-10-09] MEDS: INSULIN REGULAR, HUMAN 100 UNIT/1 ML 3ML VIAL SQ SCH ×4 (07:30→20:46)
[2018-10-09] MEDS: FUROSEMIDE INJ 10 MG/ML 4 ML VIAL IV SCH ×2 (09:01→17:35)
[2018-10-09] MEDS: HYDRALAZINE HCL 25 MG TAB PO SCH ×3 (09:01→20:45)
[2018-10-09] MEDS: IRON SUCROSE 100 MG in SODIUM CHLORIDE 0.9% 100 ML 100 ML IV SCH (09:01)
[2018-10-09] MEDS: METOPROLOL SUCCINATE 50 MG TAB XL PO SCH (09:02)
[2018-10-09] MEDS: DIGOXIN 0.125 MG TAB PO SCH (09:02)
[2018-10-09] MEDS: CLOPIDOGREL BISULFATE 75 MG TAB PO SCH (09:04)
--- NOTE | 2018-10-09 09:30 | NUR ---
PATIENT A/O X3, EVEN RESPIRATIONS ON 3LNC. BOWEL SOUNDS ACTIVE, SKIN INTACT, 2+ PITTING EDEMA BLE. PATIENT CONTINENT TO BLADDER AND BOWELS. LEA 20 GAUGE IV SL. PATIENT NEEDS ASSISTANCE WITH AMBULATION. VITAL SIGNS STABLE, CALL LIGHT IN REACH, WILL CONTINUE TO MONITOR PATIENT.
[2018-10-09] MEDS ORDERED: PEG (High)/E-LYTE SOLN 4,000 ML BTL PO SCH (15:00)
--- NOTE | 2018-10-09 20:20 | NUR ---
Assessment done.aaox4.ambulates with assistance and walker.having golytelly.had bowel movement.bed alarm on.bed locked and in lowest position.phone and call light within reach.keep monitor the pt.npo after midnight.
[2018-10-09] MEDS: SIMVASTATIN 40 MG TAB PO SCH (20:45)
--- NOTE | 2018-10-09 22:17 | NUR ---
Report given to Yari LIRA.waking rounds done.stable condition.
--- NOTE | 2018-10-09 22:20 | NUR ---
RECEIVED PATIENT, RESTING IN BED. NO DISTRESS OBSERVED. BED LOCKED AND IN LOWEST POSITION, CALL LIGHT WITHIN EASY REACH. WILL CONTINUE TO MONITOR THE PATIENT.
[2018-10-10] VITALS (10 sets, daily range): BP systolic 110–149; BP diastolic 49–64
--- NOTE | 2018-10-10 00:22 | NUR ---
spoke with MD, patient ok to continue golytely until 0400. new medication orders entered and implemented. if patient stool not clear, continue w/ EGD but colonoscopy to be done outpatient.
[2018-10-10] MEDS ORDERED: CITRATE OF MAGNESIA 300ML BOTTLE PO ONE (00:30)
[2018-10-10] MEDS ORDERED: BISACODYL 5 MG TAB EC PO ONE (00:30)
[2018-10-10 05:58] LABS: BASOPHILS % 0.3 % (0.0-1.0); EOSINOPHILS # (AUTO) 0.2 (0.0-0.4); EOSINOPHILS % 3.1 % (0.0-6.0); HEMATOCRIT 25.4 % (34.2-44.1); HEMOGLOBIN 7.7 g/dL (12.0-16.0); LYMPHOCYTES # (AUTO) 0.7 (1.0-3.2); LYMPHOCYTES % 10.5 % (18.0-39.1); MEAN CORPUSCULAR HEMOGLOBIN 25.6 pg (28-32); MEAN CORPUSCULAR HGB CONC 30.3 g/dL (31-35); MEAN CORPUSCULAR VOLUME 84.4 fL (81-99); MONOCYTES # (AUTO) 0.6 (0.2-0.8); MONOCYTES % 10.3 % (4.4-11.3); NEUTROPHILS # (AUTO) 4.7 (2.1-6.9); NEUTROPHILS % 75.2 % (38.7-80.0); PLATELET COUNT 199 x10e3/uL (140-360); RED BLOOD COUNT 3.01 x10e6/uL (3.6-5.1); RED CELL DISTRIBUTION WIDTH 17.2 % (11.7-14.4)
[2018-10-10 06:12] LABS: ANION GAP 15.9 mmol/L (8-16); BLOOD UREA NITROGEN 39 mg/dL (7-26); BUN/CREATININE RATIO 44 (6-25); CALCIUM 9.4 mg/dL (8.4-10.2); CARBON DIOXIDE 27 mmol/L (22-29); CHLORIDE 98 mmol/L (98-107); CREATININE, SERUM 0.88 mg/dL (0.57-1.11); EST GLOMERULAR FILTRATION RATE > 60 ML/MIN (60-); GLUCOSE 83 mg/dL (74-118); POTASSIUM 3.9 mmol/L (3.5-5.1); SODIUM 137 mmol/L (136-145)
[2018-10-10] MEDS: IRON SUCROSE 100 MG in SODIUM CHLORIDE 0.9% 100 ML 100 ML IV SCH (06:45)
[2018-10-10 06:52] LABS: ANISOCYTOSIS S; LYMPHOCYTES % (MANUAL) 9 % (19-48); MONOCYTES % (MANUAL) 9 % (3.4-9.0); NEUTROPHILS % (MANUAL) 81 % (40-74); PLATELET MORPHOLOGY COMMENT NORMAL; POIKILOCYTOSIS S; POLYCHROMASIA S; RBC MORPHOLOGY COMMENT ABNORMAL
[2018-10-10 06:53] LABS: PLATELET ESTIMATE ADEQUATE
[2018-10-10] MEDS: INSULIN REGULAR, HUMAN 100 UNIT/1 ML 3ML VIAL SQ SCH ×4 (07:30→21:55)
--- NOTE | 2018-10-10 07:58 | NUR ---
DOWN TO OR, PT LEFT IN STABLE CONDITION
[2018-10-10] MEDS: INVOKANA 100MG PO SCH (09:00)
[2018-10-10] MEDS: LINAGLIPTIN 5 MG PO SCH (09:00)
--- NOTE | 2018-10-10 09:10 | NUR ---
BACK TO RM AAOX3 NO DISTRESS NOTED, O2 @ 2L NC NO OTHER CO VOICED CALL LIGHT IN REACH WILL CONTINUE OT MONITOR
[2018-10-10] MEDS: DIGOXIN 0.125 MG TAB PO SCH (09:40)
[2018-10-10] MEDS: PANTOPRAZOLE 40 MG 10ML VIAL IV SCH ×2 (09:40→16:30)
[2018-10-10] MEDS: FUROSEMIDE INJ 10 MG/ML 4 ML VIAL IV SCH ×2 (09:40→16:30)
[2018-10-10] MEDS: CLOPIDOGREL BISULFATE 75 MG TAB PO SCH (09:40)
[2018-10-10] MEDS: METOPROLOL SUCCINATE 50 MG TAB XL PO SCH (09:40)
[2018-10-10] MEDS: HYDRALAZINE HCL 25 MG TAB PO SCH ×3 (09:40→21:55)
--- NOTE | 2018-10-10 10:20 | NUR ---
CM SPOKE TO PATIENT AT BEDSIDE REGARDING DISCHARGE PLAN AND PLAN OF CARE. PATIENT AWARE OF ORDER FOR OUTPATIENT PHYSICAL THERAPY. PATIENT GIVEN CHOICES AND SIGNED CHOICE FOR [facility] OUTPATIENT PT SERVES. CHOICE PLACED IN CHART AND FACESHEET AND ORDER SENT TO OUTPATIENT PT SERVICES AT [facility]. [facility] Therapy Services [place] [phone] [address], [place] [address] Addendum: 10/10/18 at 1024 by Rebekah Arriola CM FAX: [phone]
--- NOTE | 2018-10-10 10:24 | NUR ---
DISCHARGE DISPOSITION PATIENT DISCHARGING HOME WITH OUTPATIENT PT SERVICES WITH: [facility] [place] [phone] [address], [place] [address]
--- NOTE | 2018-10-10 13:18 | NUR ---
EDUCATED ABOUT IMM, SIGNED, FILED IN CHART, WITH COPY LEFT WITH FAMILY AT BEDSIDE.
[2018-10-10] MEDS ORDERED: PROPOFOL IV EMULSION 10 MG/ML 20 ML VIAL ONE (14:50)
[2018-10-10] MEDS ORDERED: LIDOCAINE HCL 2% LOCAL INJ 5 ML SDV VIAL INJ ONE (14:50)
--- NOTE | 2018-10-10 19:05 | NUR ---
BEDSIDE SHIFT REPORT GIVEN TO ONCOMING NIGHT RN, PT LEFT IN STABLE CONDITION, NO CO VOICED CALL LIGHT IN REACH.
[2018-10-10] MEDS: SIMVASTATIN 40 MG TAB PO SCH (21:55)
[2018-10-11] VITALS (7 sets, daily range): BP systolic 142–165; BP diastolic 62–69
[2018-10-11] MEDS: IRON SUCROSE 100 MG in SODIUM CHLORIDE 0.9% 100 ML 100 ML IV SCH (06:39)
[2018-10-11 07:19] LABS: BASOPHILS % 0.4 % (0.0-1.0); EOSINOPHILS # (AUTO) 0.2 (0.0-0.4); EOSINOPHILS % 3.3 % (0.0-6.0); HEMOGLOBIN 7.5 g/dL (12.0-16.0); LYMPHOCYTES # (AUTO) 0.7 (1.0-3.2); LYMPHOCYTES % 14.7 % (18.0-39.1); MEAN CORPUSCULAR HEMOGLOBIN 25.8 pg (28-32); MEAN CORPUSCULAR VOLUME 85.9 fL (81-99); MONOCYTES # (AUTO) 0.6 (0.2-0.8); MONOCYTES % 12.2 % (4.4-11.3); NEUTROPHILS # (AUTO) 3.4 (2.1-6.9); PLATELET COUNT 179 x10e3/uL (140-360); RED BLOOD COUNT 2.91 x10e6/uL (3.6-5.1); RED CELL DISTRIBUTION WIDTH 17.8 % (11.7-14.4)
[2018-10-11] MEDS: INSULIN REGULAR, HUMAN 100 UNIT/1 ML 3ML VIAL SQ SCH ×4 (07:30→21:55)
[2018-10-11] MEDS: INVOKANA 100MG PO SCH (07:34)
[2018-10-11] MEDS: LINAGLIPTIN 5 MG PO SCH (07:34)
--- NOTE | 2018-10-11 07:35 | NUR ---
PT UP IN BED SLEEPING NO DISTRESS NTOED,O2 2L NC IN PLACE
[2018-10-11] MEDS: PANTOPRAZOLE 40 MG 10ML VIAL IV SCH ×2 (09:00→17:19)
[2018-10-11] MEDS: HYDRALAZINE HCL 25 MG TAB PO SCH ×3 (09:00→21:55)
[2018-10-11] MEDS: FUROSEMIDE INJ 10 MG/ML 4 ML VIAL IV SCH ×2 (09:00→17:00)
[2018-10-11] MEDS: CLOPIDOGREL BISULFATE 75 MG TAB PO SCH (09:00)
[2018-10-11] MEDS: DIGOXIN 0.125 MG TAB PO SCH (09:00)
[2018-10-11] MEDS: METOPROLOL SUCCINATE 50 MG TAB XL PO SCH (09:00)
--- NOTE | 2018-10-11 17:49 | NUR ---
PT UP IN BE NO DISTRESS NTOED DENIES PAIN,
--- NOTE | 2018-10-11 19:05 | NUR ---
RECEIVED PATIENT SITTING UP IN BED, STABLE CONDITION, DENIES PAIN. REPOSITIONED PATIENT FOR COMFORT. BED LOCKED AND IN LOWEST POSITION, CALL LIGHT WITHIN EASY REACH. WILL CONTINUE TO MONITOR.
[2018-10-11] MEDS: SIMVASTATIN 40 MG TAB PO SCH (21:55)
[2018-10-12] VITALS: BP 169/77
[2018-10-12 04:00] VITALS: BP 186/80
[2018-10-12] MEDS: IRON SUCROSE 100 MG in SODIUM CHLORIDE 0.9% 100 ML 100 ML IV SCH (06:30)
[2018-10-12] MEDS: HYDRALAZINE HCL 25 MG TAB PO SCH ×4 (06:30→20:43)
--- NOTE | 2018-10-12 06:31 | NUR ---
DR. HILL GIVEN OKAY TO GIVE 0900 DOSE OF HYDRALAZINE NOW FOR ELEVATED BP THIS AM.
[2018-10-12 07:23] LABS: BASOPHILS % 0.3 % (0.0-1.0); EOSINOPHILS # (AUTO) 0.1 (0.0-0.4); HEMATOCRIT 28.1 % (34.2-44.1); HEMOGLOBIN 8.2 g/dL (12.0-16.0); LYMPHOCYTES # (AUTO) 0.7 (1.0-3.2); LYMPHOCYTES % 10.5 % (18.0-39.1); MEAN CORPUSCULAR HEMOGLOBIN 26.1 pg (28-32); MEAN CORPUSCULAR HGB CONC 29.2 g/dL (31-35); MEAN CORPUSCULAR VOLUME 89.5 fL (81-99); MONOCYTES # (AUTO) 0.7 (0.2-0.8); MONOCYTES % 10.5 % (4.4-11.3); NEUTROPHILS # (AUTO) 5.4 (2.1-6.9); NEUTROPHILS % 76.4 % (38.7-80.0); PLATELET COUNT 55 x10e3/uL (140-360); RED BLOOD COUNT 3.14 x10e6/uL (3.6-5.1); RED CELL DISTRIBUTION WIDTH 18.4 % (11.7-14.4)
[2018-10-12] MEDS: INSULIN REGULAR, HUMAN 100 UNIT/1 ML 3ML VIAL SQ SCH ×4 (07:30→20:44)
--- NOTE | 2018-10-12 07:30 | NUR ---
PT UP IN BED DENIES PAIN ,NO DISTRESS NOTED.DENIES PAIN
[2018-10-12 08:02] VITALS: BP 156/69
[2018-10-12] MEDS: FUROSEMIDE INJ 10 MG/ML 4 ML VIAL IV SCH ×2 (08:22→16:32)
[2018-10-12] MEDS: INVOKANA 100MG PO SCH (08:22)
[2018-10-12] MEDS: LINAGLIPTIN 5 MG PO SCH (08:22)
[2018-10-12] MEDS: PANTOPRAZOLE 40 MG 10ML VIAL IV SCH ×2 (08:22→16:32)
[2018-10-12] MEDS: METOPROLOL SUCCINATE 50 MG TAB XL PO SCH (08:23)
[2018-10-12] MEDS: DIGOXIN 0.125 MG TAB PO SCH ×2 (08:23→08:27)
[2018-10-12] MEDS: CLOPIDOGREL BISULFATE 75 MG TAB PO SCH (08:23)
--- NOTE | 2018-10-12 12:30 | NUR ---
PT UP IN BED REFUSES TO SIT IN CHAIR FOR LUNCH
[2018-10-12 13:46] VITALS: BP 119/56
[2018-10-12 16:18] VITALS: BP 145/63
--- NOTE | 2018-10-12 17:52 | NUR ---
PT RESTING NO DISTRESS NOTED DENIES PAIN .
--- NOTE | 2018-10-12 19:00 | NUR ---
Report and walking rounds completed. Patient in bed. Call light within reach. Will continue to monitor.
[2018-10-12 20:00] VITALS: BP 163/81
[2018-10-12] MEDS: SIMVASTATIN 40 MG TAB PO SCH (20:43)
[2018-10-13] VITALS: BP 147/66
[2018-10-13 04:00] VITALS: BP 130/60
[2018-10-13 05:47] LABS: BASOPHILS % 0.6 % (0.0-1.0); EOSINOPHILS # (AUTO) 0.2 (0.0-0.4); EOSINOPHILS % 3.8 % (0.0-6.0); HEMOGLOBIN 7.8 g/dL (12.0-16.0); LYMPHOCYTES % 19.8 % (18.0-39.1); MEAN CORPUSCULAR VOLUME 86.7 fL (81-99); MONOCYTES # (AUTO) 0.7 (0.2-0.8); MONOCYTES % 12.8 % (4.4-11.3); NEUTROPHILS # (AUTO) 3.2 (2.1-6.9); NEUTROPHILS % 62.8 % (38.7-80.0); PLATELET COUNT 169 x10e3/uL (140-360); RED CELL DISTRIBUTION WIDTH 19.3 % (11.7-14.4)
[2018-10-13] MEDS: IRON SUCROSE 100 MG in SODIUM CHLORIDE 0.9% 100 ML 100 ML IV SCH (06:05)
--- NOTE | 2018-10-13 06:11 | NUR ---
Notified Dr Gibbons of H/H this am 7.8/26.0. Yesterdays H/H 8.2/28.1. Redraw labs at 1400 and notify of result.
[2018-10-13 08:06] VITALS: BP 155/70
[2018-10-13 08:51] VITALS: BP 155/70
[2018-10-13] MEDS: FUROSEMIDE INJ 10 MG/ML 4 ML VIAL IV SCH (08:54)
[2018-10-13] MEDS: METOPROLOL SUCCINATE 50 MG TAB XL PO SCH (08:55)
[2018-10-13] MEDS: INVOKANA 100MG PO SCH (08:55)
[2018-10-13] MEDS: LINAGLIPTIN 5 MG PO SCH (08:55)
[2018-10-13] MEDS: HYDRALAZINE HCL 25 MG TAB PO SCH ×2 (08:55→15:06)
[2018-10-13] MEDS: CLOPIDOGREL BISULFATE 75 MG TAB PO SCH (08:55)
[2018-10-13] MEDS: PANTOPRAZOLE 40 MG 10ML VIAL IV SCH (08:55)
[2018-10-13] MEDS: DIGOXIN 0.125 MG TAB PO SCH (08:55)
[2018-10-13] MEDS: INSULIN REGULAR, HUMAN 100 UNIT/1 ML 3ML VIAL SQ SCH ×2 (08:56→12:20)
[2018-10-13 12:15] VITALS: BP 144/93
--- NOTE | 2018-10-13 13:31 | NUR ---
IMM EXPLAINED TO PT, SIGNED BY PT AND PLACED IN CHART COPY OF IMM TO PT IN CARE TRANSITIONS FOLDER
[2018-10-13 15:10] LABS: BASOPHILS % 0.3 % (0.0-1.0); EOSINOPHILS # (AUTO) 0.2 (0.0-0.4); EOSINOPHILS % 3.1 % (0.0-6.0); HEMATOCRIT 27.2 % (34.2-44.1); HEMOGLOBIN 8.3 g/dL (12.0-16.0); LYMPHOCYTES # (AUTO) 0.7 (1.0-3.2); LYMPHOCYTES % 10.6 % (18.0-39.1); MEAN CORPUSCULAR HEMOGLOBIN 26.4 pg (28-32); MEAN CORPUSCULAR HGB CONC 30.5 g/dL (31-35); MEAN CORPUSCULAR VOLUME 86.6 fL (81-99); MONOCYTES # (AUTO) 0.6 (0.2-0.8); MONOCYTES % 8.2 % (4.4-11.3); NEUTROPHILS # (AUTO) 5.2 (2.1-6.9); NEUTROPHILS % 77.4 % (38.7-80.0); PLATELET COUNT 195 x10e3/uL (140-360); RED BLOOD COUNT 3.14 x10e6/uL (3.6-5.1); RED CELL DISTRIBUTION WIDTH 19.5 % (11.7-14.4)
[2018-10-13] MEDS ORDERED: PANTOPRAZOLE SO40 MG PO (15:29)
[2018-10-13 16:00] VITALS: BP 133/56
--- NOTE | 2018-10-13 16:00 | NUR ---
MD HILL AWARE OF NEW HBG LEVEL. ORDERS TO DC HOME GIVEN
--- NOTE | 2018-10-13 16:19 | NUR ---
PT OFF FLOOR TO HOME VIA WHEEL CHAIR DC INSTRUCTIONS AND PRESCRIPTIONS GIVEN. PT VERBALIZED UNDERSTANDING OUT PATIENT REHAB SET. PT AWARE TO CALL TO SCHEDULE APPOINTMENT
--- NOTE | 2018-10-14 11:56 | Discharge Summary ---
DISCHARGE DIAGNOSES: 1. Gastrointestinal bleed. 2. Peptic ulcer disease. 3. Acute diastolic on chronic congestive heart failure. 4. Hypertension. 5. Chronic kidney disease stage 3. 6. Diabetes. HISTORY OF PRESENT ILLNESS AND HOSPITAL COURSE: Please see hospital chart for full details. The patient is a lady brought in with acute shortness of breath, found to be volume overload due to chronic diastolic heart failure. She was seen by our pen rider who diuresed the patient, which she did well with, but while in the hospital, she started having a decrease of hemoglobin on two different occasions that required transfusion therapy, so she was seen by GI, was scoped that did find her to have some evidence of peptic ulcer disease and she was then placed on twice a day proton pump inhibitor. At the time of discharge, her hemoglobin had improved and remained stable for two days, so she was able to be discharged home in good condition, to follow up in one to two weeks with me as well as with Cardiology as well as GI. She was sent home with twice a day proton pump inhibitor and continuation of her home medications. She was also instructed that she needs to continue with her exercise and low-salt diet, which she has been noncompliant with in the past. Please see hospital chart for full details. MD SANDY Garcia/ADI /[id number]
== END 2018-10-13 16:12 | disposition home or self-care (01) | DRG 291 ==
LOC: ER 18:22 → ERHOLD 21:02 → MED/SURG 22:32
PROVIDERS: ADMIT Internal Medicine; ATTEND Internal Medicine
PROC: 0DB78ZX Excision of Stomach, Pylorus, Via Natural or Artificial Opening Endoscopic, Diagnostic (ICD-10-PCS; principal; 2018-10-10 08:15)
DX: I13.0 Hypertensive heart and chronic kidney disease with heart failure and stage 1 through stage 4 chronic kidney disease, or unspecified chronic kidney disease (principal); K27.4 Chronic or unspecified peptic ulcer, site unspecified, with hemorrhage; I50.33 Acute on chronic diastolic (congestive) heart failure; K26.0 Acute duodenal ulcer with hemorrhage; N18.3 Chronic kidney disease, stage 3 (moderate); E11.22 Type 2 diabetes mellitus with diabetic chronic kidney disease; Z79.4 Long term (current) use of insulin; K29.80 Duodenitis without bleeding; K31.7 Polyp of stomach and duodenum; Z95.0 Presence of cardiac pacemaker; I48.2 Chronic atrial fibrillation; Z79.01 Long term (current) use of anticoagulants
CPT/HCPCS: 36415; 43239; 45378; 71045; 80048; 80053; 81001; 82270; 82550; 82553; 82948; 83540; 83735; 83880; 84466; 84484; 85025; 85610; 85730; 86850; 86900; 86920; 88305; 88312; 93005; 93306; 96372; 97139; 99284; J1756; J1817; J1940; J2001; J7050; J7799; P9016

== ENCOUNTER 2018-10-15 19:54 | Emergency (ER) | payer MEDICARE ==
[~2018-10-15] VITALS: Ht 162.6 cm; Wt 104.8 kg
[~2018-10-15 19:54] MED LIST changes: +PANTOPRAZOLE SO40 MG PO
--- NOTE | 2018-10-15 22:49 | Diagnostic Imaging Report ---
FOOT RIGHT COMPLETE, ANKLE 3 + VIEWS RIGHT HISTORY: Pain. COMPARISON: None available. FINDINGS: Limited radiographic evaluation of the foot and ankle due to overlying cast/splint. Bones: Minimally displaced oblique fracture of the distal fibula above the level of the tibial plafond. Minimally displaced posterior malleolus fracture. Subtle lucency in the first toe distal tuft . Appearance of disuse osteopenia. Joints: The joint spaces are well-maintained. Soft tissues: Nonspecific soft tissue swelling along the dorsal midfoot and in the first toe IMPRESSION: 1. Limited radiographic evaluation of the foot and ankle due to overlying cast/splint. 2. Minimally displaced oblique fracture of the distal fibula above the level of the tibial plafond. Minimally displaced posterior malleolus fracture. 3. Nonspecific soft tissue swelling along the dorsal midfoot and in the first toe, possibly due to inflammation/infection or hematoma. 4. Subtle lucency in the first toe distal tuft may be artifactual due to overlying bandage material, however tuft fracture or osteomyelitis are considerations correlate with clinical evaluation. 5. Appearance of disuse osteopenia. Signed by: Adriel Torres DO on 10/15/2018 10:45 PM
== END 2018-10-16 05:26 | disposition home or self-care (01) ==
LOC: ER 19:54
DX: M79.671 Pain in right foot (principal); W22.09XA Striking against other stationary object, initial encounter; Y92.008 Other place in unspecified non-institutional (private) residence as the place of occurrence of the external cause
CPT/HCPCS: 99283

== ENCOUNTER 2018-10-18 09:28 | Inpatient (IN) | payer MEDICARE ==
[~2018-10-18] VITALS: Ht 162.6 cm; Wt 104.8 kg
[2018-10-18 10:20] LABS: BASOPHILS % 0.3 % (0.0-1.0); EOSINOPHILS # (AUTO) 0.1 (0.0-0.4); EOSINOPHILS % 1.5 % (0.0-6.0); HEMATOCRIT 26.4 % (34.2-44.1); LYMPHOCYTES # (AUTO) 0.5 (1.0-3.2); LYMPHOCYTES % 5.8 % (18.0-39.1); MEAN CORPUSCULAR HGB CONC 30.3 g/dL (31-35); MEAN CORPUSCULAR VOLUME 89.2 fL (81-99); MONOCYTES # (AUTO) 0.7 (0.2-0.8); MONOCYTES % 8.3 % (4.4-11.3); NEUTROPHILS # (AUTO) 6.6 (2.1-6.9); NEUTROPHILS % 83.7 % (38.7-80.0); PLATELET COUNT 214 x10e3/uL (140-360); RED BLOOD COUNT 2.96 x10e6/uL (3.6-5.1); RED CELL DISTRIBUTION WIDTH 21.3 % (11.7-14.4)
[2018-10-18 10:34] LABS: INR 2.4; PROTHROMBIN TIME 26.9 seconds (11.9-14.5)
[2018-10-18 10:35] LABS: PARTIAL THROMBOPLASTIN TIME 44.5 seconds (23.8-35.5)
[2018-10-18 10:36] LABS: BILIRUBIN,URINE NEGATIVE (NEGATIVE); COLOR,URINE YELLOW (YELLOW); KETONES,URINE NEGATIVE (NEGATIVE); LEUKOCYTE ESTERASE ,URINE NEGATIVE (NEGATIVE); NITRITE,URINE NEGATIVE (NEGATIVE); PROTEIN,URINE DIPSTICK TRACE (NEGATIVE); URINE UROBILINOGEN 0.2 mg/dL (0.2 - 1)
[2018-10-18 10:38] LABS: CLARITY,URINE HAZY (CLEAR)
[2018-10-18 10:44] LABS: ALBUMIN 2.8 g/dL (3.5-5.0); ALBUMIN/GLOBULIN RATIO 0.7 (0.8-2.0); ANION GAP 14.1 mmol/L (8-16); CALCIUM 8.6 mg/dL (8.4-10.2); CREATININE, SERUM 1.71 mg/dL (0.57-1.11); MAGNESIUM 1.9 MG/DL (1.3-2.1); POTASSIUM 4.1 mmol/L (3.5-5.1)
[2018-10-18 10:48] LABS: BACTERIA,URINE MANY /HPF; EPITHELIAL CELLS,URINE FEW /LPF; MUCUS,URINE FEW (RARE); RBC,URINE 0-5 /HPF (0-5)
[2018-10-18 10:48] LABS: B-TYPE NATRIURETIC PEPTIDE2 1496.6 pg/mL (0-100)
[2018-10-18 10:50] LABS: CREATINE KINASE MB 1.8 ng/mL (0-5.0)
--- NOTE | 2018-10-18 10:58 | Consultation ---
DATE OF CONSULTATION: Cardiology Consultation CHIEF COMPLAINT: The patient is a 78-year-old with some weakness and shortness of breath. HISTORY OF PRESENT ILLNESS: The patient was recently discharged from [facility] on October 13, 2018, and returned to the emergency room today with worsening shortness of breath and weakness. The patient reported increasing peripheral edema. The patient is so weak, she could hardly get out of bed. The patient has had no chest pain. No nausea. No vomiting. No abdominal pain. No fevers. PAST MEDICAL HISTORY: Significant for, 1. Recurrent diastolic heart failure. 2. Recent echocardiogram demonstrating an ejection fraction of 55% to 60%. 3. Chronic atrial fibrillation. 4. Permanent pacemaker. 5. Chronic renal disease. 6. Hypertension. SOCIAL HISTORY: The patient does not drink and does not smoke. The patient does live at home. FAMILY HISTORY: There is a known family history of hypertension. PHYSICAL EXAMINATION: GENERAL: The patient is an older female, in no obvious distress. VITAL SIGNS: Included a temperature of 98.6, pulse was 60, and blood pressure 126/64. Head, EARS, EYES, NOSE, AND THROAT: The patient's cranium was normocephalic and atraumatic. Extraocular muscles were intact. Sclerae were not icteric. Pupils were equal, round, reactive to light. CHEST: Demonstrated some rhonchi bilaterally. CARDIAC: Demonstrated a normal S1 and S2 with a short 2/6 systolic murmur. ABDOMEN: Demonstrated good bowel sounds. No tenderness and no masses. EXTREMITIES: With 3 to 4+ edema bilaterally. NEUROLOGIC: The patient was alert and oriented. Cranial nerves were intact. Motor strength was intact in the limbs. IMAGING DATA: The patient's EKG demonstrated a paced rhythm. IMPRESSION: The patient is a 78-year-old, admitted with recurrent weakness, fatigue, and known chronic diastolic heart failure. RECOMMENDATIONS: As follows, 1. The patient will need to be diuresed again with IV Lasix. 2. The patient will require ALBERT inhibitors and beta-blockers as tolerated. 3. The patient will need to be monitored on telemetry. MD DAE Mo/ADI /[id number]
--- NOTE | 2018-10-18 11:13 | NUR ---
rec'd report in walking rounds with madhavi sandoval for contunuity of care.
--- NOTE | 2018-10-18 11:29 | Diagnostic Imaging Report ---
A single frontal view of the chest. HISTORY: Weakness, shortness of breath COMPARISON: Chest radiograph October 01, 2018 DISCUSSION: Portable technique, limits sensitivity of the exam. Soft tissue attenuation partially limits sensitivity of the exam. Overlying monitoring leads and other artifacts. Tubes/Lines: None Lungs and pleura: Low lung volumes result in bibasilar vascular crowding, accentuation of the pulmonary interstitial markings, central pulmonary vasculature, and the cardiac silhouette. Allowing for these limitations, the findings are as follows: Bibasilar atelectasis with more confluent opacities obscuring the diaphragms, left greater than right. Diffusely increased pulmonary interstitial markings. Heart and mediastinum: The cardiac silhouette and central pulmonary vasculature appears prominent. Bones and soft tissues: Appear unremarkable, given this limited exam. IMPRESSION: 1. Findings compatible with central pulmonary vascular congestion, moderate pulmonary edema, left greater than right pleural effusions and left greater than right atelectasis. 2. Recommend short term follow up routine PA and lateral chest radiographs, in 6 to 8 weeks, to evaluate for resolution. Signed by: Dr. Adolfo Hughes D.O., M.M.M. on 10/18/2018 11:26 AM
[2018-10-18 11:31] LABS: EOSINOPHILS % (MANUAL) 3 % (0-7); LYMPHOCYTES % (MANUAL) 7 % (19-48); MONOCYTES % (MANUAL) 5 % (3.4-9.0); NEUTROPHILS % (MANUAL) 85 % (40-74)
[2018-10-18 11:32] LABS: ANISOCYTOSIS SLIGHT; PLATELET ESTIMATE ADEQUATE; PLATELET MORPHOLOGY COMMENT NORMAL; RBC MORPHOLOGY COMMENT ABNORMAL
[2018-10-18] MEDS ORDERED: VANCOMYCIN 1GM/NS 250 ML 250 ML IV ONE (12:00)
[2018-10-18] MEDS ORDERED: ONDANSETRON HCL INJ 2MG/ML 2ML 2 MG/ML VIAL IV PRN (12:00)
[2018-10-18] MEDS ORDERED: DEXTROSE 50% SYRINGE 50 ML IV PRN (12:00)
[2018-10-18] MEDS: FAMOTIDINE 20 MG/2 ML VIAL IV SCH ×2 (12:22→12:40)
[2018-10-18] MEDS: CEFEPIME 1GM/NS 0.9% 50 ML 50 ML IV SCH (12:22)
--- NOTE | 2018-10-18 13:45 | NUR ---
RECEIVED PT FROM JIM. ROSALIO. BED IS AT THE LOWEST POSITION AND LOCKED. BED ALARM IS ON. CALL LIGHT WITH IN EASY REACH. INSTRUCTED PT TO CALL FOR NEEDS. PT DENIED FURTHER NEEDS.
[2018-10-18 14:00] VITALS: BP 117/57
[2018-10-18] MEDS ORDERED: SODIUM CHLORIDE 0.9% 250ML 250 ML ONE (14:28)
[2018-10-18 16:06] VITALS: BP 115/54
[2018-10-18] MEDS: INSULIN LISPRO 100 UNIT/1 ML 3ML VIAL SQ SCH ×2 (17:05→21:00)
--- NOTE | 2018-10-18 19:00 | NUR ---
BEDSIDE SHIFT REPORT GIVEN TO THE SCREEN PRINTING SUPERVISOR RN. PT DENIED FURTHER NEEDS
--- NOTE | 2018-10-18 19:18 | NUR ---
Patient received lying in bed . AAO x 3. Patient had no complaints of pain. No signs of respiratory distress. Cast to right foot CDI; right great toe erythematous. Fall precautions implemented. Patient instructed to call for assistance when needed. Call light with reach.
[2018-10-18 19:56] LABS: CREATINE KINASE MB 2.1 ng/mL (0-5.0)
[2018-10-18 20:10] VITALS: BP 128/61
[2018-10-18] MEDS: FUROSEMIDE INJ 10 MG/ML 4 ML VIAL IV SCH (21:52)
[2018-10-18 22:00] VITALS: BP 128/61
[2018-10-19] VITALS (8 sets, daily range): BP systolic 100–128; BP diastolic 44–67
[2018-10-19] MEDS: FAMOTIDINE 20 MG/2 ML VIAL IV SCH ×3 (00:45→23:45)
[2018-10-19] MEDS: CEFEPIME 1GM/NS 0.9% 50 ML 50 ML IV SCH ×2 (00:45→09:10)
[2018-10-19 06:39] LABS: BASOPHILS % 0.2 % (0.0-1.0); EOSINOPHILS # (AUTO) 0.1 (0.0-0.4); EOSINOPHILS % 2.3 % (0.0-6.0); LYMPHOCYTES # (AUTO) 0.6 (1.0-3.2); LYMPHOCYTES % 9.2 % (18.0-39.1); MEAN CORPUSCULAR HEMOGLOBIN 26.9 pg (28-32); MEAN CORPUSCULAR HGB CONC 30.4 g/dL (31-35); MEAN CORPUSCULAR VOLUME 88.6 fL (81-99); MONOCYTES # (AUTO) 0.6 (0.2-0.8); MONOCYTES % 10.2 % (4.4-11.3); NEUTROPHILS # (AUTO) 4.8 (2.1-6.9); NEUTROPHILS % 77.8 % (38.7-80.0); PLATELET COUNT 198 x10e3/uL (140-360); RED BLOOD COUNT 2.71 x10e6/uL (3.6-5.1); RED CELL DISTRIBUTION WIDTH 21.8 % (11.7-14.4)
[2018-10-19 06:44] LABS: HEMOGLOBIN 7.3 g/dL (12.0-16.0)
[2018-10-19 06:57] LABS: ALBUMIN 2.5 g/dL (3.5-5.0); ALBUMIN/GLOBULIN RATIO 0.7 (0.8-2.0); ANION GAP 12.5 mmol/L (8-16); CALCIUM 8.4 mg/dL (8.4-10.2); CHOL/HDL RATIO 3.3 (3.0-3.6); CREATININE, SERUM 1.36 mg/dL (0.57-1.11); POTASSIUM 3.5 mmol/L (3.5-5.1)
--- NOTE | 2018-10-19 07:00 | NUR ---
BEDSIDE SHIFT REPORT RECEIVED FROM THE DIRECTOR OF CONSUMER MARKETING RN. PT BLOOD SUGAR WAS 27. ORANGE JUICE GIVEN. PT AAOX 4. PT DENIES NEEDS AT THIS TIME.
--- NOTE | 2018-10-19 07:15 | NUR ---
Rn Pain Management called with critical lab results for blood glucose level---27. Dana juice given to patient. Dextrose 50 % given via IV
[2018-10-19 07:30] LABS: CREATINE KINASE MB 1.7 ng/mL (0-5.0)
[2018-10-19] MEDS: INSULIN LISPRO 100 UNIT/1 ML 3ML VIAL SQ SCH ×4 (07:30→20:40)
--- NOTE | 2018-10-19 07:33 | NUR ---
Blood glucose level checked after 15 minutes and recorded as 138. Patient is alert and asymptomatic of hypoglycemia.
--- NOTE | 2018-10-19 07:39 | NUR ---
Shift report given to oncoming nurse regarding patient status.
[2018-10-19] MEDS ORDERED: VALSARTAN PO SCH (08:00)
[2018-10-19] MEDS ORDERED: AMLODIPINE PO SCH (08:00)
--- NOTE | 2018-10-19 08:00 | NUR ---
RECHECKED THE BLOOD SUGAR. 138 NOTED. PT AAOX4. NO DISTRESS NOTED. PT DENIED FURTHER NEEDS/
--- NOTE | 2018-10-19 08:01 | NUR ---
MORNING 0730 INSULIN NOT GIVEN DUE TO LOW BLOOD SUGAR 27 REPORTED AT 0700.
[2018-10-19] MEDS: HYDRALAZINE HCL 25 MG TAB PO SCH ×3 (08:59→20:30)
[2018-10-19] MEDS ORDERED: RIVAROXABAN 10 MG TABLET PO SCH (09:00)
[2018-10-19] MEDS ORDERED: NON-FORMULARY MEDICATION (Hydrochlorothiazide 12.5 MG) PO SCH (09:00)
[2018-10-19] MEDS ORDERED: NON-FORMULARY MEDICATION (Hydralazine Hcl 50 MG) PO SCH (09:00)
[2018-10-19] MEDS ORDERED: INVOKANA 100 MG PO SCH (09:00)
[2018-10-19] MEDS: VALSARTAN 160 MG TAB PO SCH (09:00)
[2018-10-19] MEDS: NON-FORMULARY MEDICATION (Linagliptin (Tradjenta) 5 MG) PO SCH (09:00)
[2018-10-19] MEDS: HYDROCHLOROTHIAZIDE 25 MG TAB PO SCH (09:03)
[2018-10-19] MEDS: CANAGLIFLOZIN 100 MG TABLET PO SCH (09:04)
[2018-10-19] MEDS: AMLODIPINE BESYLATE 10 MG TAB PO SCH (09:04)
[2018-10-19] MEDS: DIGOXIN 0.125 MG TAB PO SCH (09:04)
[2018-10-19] MEDS: PANTOPRAZOLE SOD 40 MG TABEC PO SCH (09:05)
[2018-10-19] MEDS: CLOPIDOGREL BISULFATE 75 MG TAB PO SCH (09:05)
[2018-10-19] MEDS: METOPROLOL SUCCINATE 50 MG TAB XL PO SCH (09:05)
[2018-10-19] MEDS: SIMVASTATIN 20 MG TAB PO SCH (09:06)
[2018-10-19] MEDS: RIVAROXABAN 15 MG TABLET PO SCH (09:06)
[2018-10-19] MEDS: FUROSEMIDE INJ 10 MG/ML 4 ML VIAL IV SCH ×2 (09:10→20:40)
--- NOTE | 2018-10-19 12:19 | History and Physical ---
HISTORY OF PRESENTING ILLNESS: This is a 78-year-old female, who [facility] went home and started to have some generalized weakness. The patient was in bed throughout the stay at home. The patient apparently had a distal fibula fracture and has a splint on the leg. The patient also started to have some pain in the extremity with pain and tenderness in the great toe. The patient also has congestive heart failure and diabetes mellitus. The patient also had some speech and visual disturbances at home. The patient has had recent fall and was diagnosed with distal fibular fracture and posterior malleolar fracture. The patient is alert and oriented x3 at this time during her conversation. PAST MEDICAL HISTORY: History of congestive heart failure, history of coronary artery disease, history of atrial fibrillation, history of diabetes mellitus, history of hypertension, history of hyperlipidemia, history of reflux esophagitis, and history of pneumonia in the recent past. MEDICATIONS: She takes are amlodipine, Exforge 10/320, clopidogrel gel, Plavix which is 75 mg daily, digoxin 125 mg daily, fluconazole 100 mg daily, furosemide total of 40 mg daily, glimepiride 4 mg b.i.d., hydralazine 50 mg 3 times a day, hydrochlorothiazide 12.5 mg daily, Tradjenta 5 mg daily, lovastatin 40 mg daily, metoprolol 50 ER daily, pantoprazole 40 mg daily, Xarelto 50 mg daily, and Invokana 100 mg daily. REVIEW OF SYSTEMS: Negative for chest pain. Positive for some shortness of breath. No cough. No sputum. Positive for tenderness in the right lower extremity. No chest pain. No black tarry stools. No difficulty with urination. The patient with skin changes, status post fall in the area of fracture. PAST SURGICAL HISTORY: Includes history of pacemaker AICD placement for congestive heart failure and history of cholecystectomy. ALLERGIES: THE PATIENT HAS NO DRUG ALLERGIES NOTED. PHYSICAL EXAMINATION: VITAL SIGNS: Temperature is 97.8, pulse of 60, respirations of 17, blood pressure is 116/58, and pulse oximetry of 92%. GENERAL: This is an elderly female, chronically ill-appearing with poor recent memory. HEENT: Normocephalic and atraumatic. Pupils are reactive to light and accommodation. CVS: S1 and S2. Regular. ABDOMEN: Nontender and nondistended. EXTREMITIES: Right lower extremity in a splint cast. The patient also has ecchymosis and erythema and tenderness in the great toe with ulceration and also with areas of cellulitic pattern. LABORATORY VALUES: White count was 7.82, hemoglobin of 8, hematocrit of 26.4, and neutrophil count is 83.7. Coags, INR was 2.4. Chemistries; sodium of 138, potassium was 3.5, BUN of 47, creatinine of 1.36, and glucose of 27. The patient's calcium is 8.4, triglycerides 58, LDL 42, and HDL of 43. Urine was all negative except for white count of 6 to 10. IMAGING STUDIES: Chest x-ray shows finding compatible with central pulmonary vascular congestion, moderate pulmonary edema. ASSESSMENT: 1. A 78-year-old female with acute generalized weakness. 2. Omfmp-qi-tnqyfwz systolic failure, present on admission. 3. Acute renal insufficiency, [id number]. 4. History of chronic iron deficiency anemia. 5. History of cellulitis of the right great toe. 6. Fatigue. 7. History of hyperlipidemia. 8. Hypertension. 9. Hyperglycemic episode, new event. PLAN: 1. The patient is on cefepime and vancomycin for chronic renal failure. We will go ahead and adjust the antibiotics to renal doses. 2. The patient will need a consult with Orthopedics for recommendations on the distal fibular and posterior malleolar fracture. 3. Adequate diuresis for congestive heart failure. Trend her BMP for acute renal failure. CBC for chronic anemia and continue with checking the trials of vancomycin. The patient in general is very debilitated and in poor health. May need SNF or continue looking for long-term acute care in lieu of her medical condition. Further recommendation per clinical course. We will continue to monitor the patient along with the consultants. MD GAL Kearney/HEIDYL /[id number]
--- NOTE | 2018-10-19 19:00 | NUR ---
BEDSIDE SHIFT REPORT GIVEN TO THE HANDLE MAKER RN. PT DENIED FURTHER NEEDS.
--- NOTE | 2018-10-19 20:50 | NUR ---
PATIENT RESTING IN BED, NO DISTRESS NOTED. PUREWICK WAS APPLIED TO PATIENT AND BLOOD SUGAR IS AT 132 AND PATIENT DENIES ANY COMPLAINTS OF PAIN. BED IS LOCKED AND IN LOWEST POSITION, BOTH RAILS ARE UP, CALL LIGHT WITHIN REACH, WILL CONTINUE TO MONITOR.
[2018-10-20] VITALS (8 sets, daily range): BP systolic 119–138; BP diastolic 47–77
[2018-10-20 05:27] LABS: BASOPHILS % 0.4 % (0.0-1.0); EOSINOPHILS # (AUTO) 0.1 (0.0-0.4); EOSINOPHILS % 1.8 % (0.0-6.0); HEMATOCRIT 25.4 % (34.2-44.1); HEMOGLOBIN 7.6 g/dL (12.0-16.0); LYMPHOCYTES # (AUTO) 0.8 (1.0-3.2); LYMPHOCYTES % 9.9 % (18.0-39.1); MEAN CORPUSCULAR HEMOGLOBIN 26.3 pg (28-32); MEAN CORPUSCULAR HGB CONC 29.9 g/dL (31-35); MEAN CORPUSCULAR VOLUME 87.9 fL (81-99); MONOCYTES # (AUTO) 0.8 (0.2-0.8); MONOCYTES % 10.8 % (4.4-11.3); NEUTROPHILS % 76.6 % (38.7-80.0); PLATELET COUNT 220 x10e3/uL (140-360); RED BLOOD COUNT 2.89 x10e6/uL (3.6-5.1); RED CELL DISTRIBUTION WIDTH 21.7 % (11.7-14.4)
[2018-10-20 05:48] LABS: ANION GAP 13.8 mmol/L (8-16); CALCIUM 8.4 mg/dL (8.4-10.2); CREATININE, SERUM 1.38 mg/dL (0.57-1.11); POTASSIUM 3.8 mmol/L (3.5-5.1)
[2018-10-20] MEDS: INSULIN LISPRO 100 UNIT/1 ML 3ML VIAL SQ SCH ×4 (07:30→20:40)
[2018-10-20] MEDS: NON-FORMULARY MEDICATION (Linagliptin (Tradjenta) 5 MG) PO SCH (09:00)
[2018-10-20] MEDS: DIGOXIN 0.125 MG TAB PO SCH (09:00)
[2018-10-20] MEDS: PANTOPRAZOLE SOD 40 MG TABEC PO SCH (11:12)
[2018-10-20] MEDS: HYDRALAZINE HCL 25 MG TAB PO SCH ×3 (11:12→20:41)
[2018-10-20] MEDS: FUROSEMIDE INJ 10 MG/ML 4 ML VIAL IV SCH ×2 (11:12→20:41)
[2018-10-20] MEDS: CEFEPIME 1GM/NS 0.9% 50 ML 50 ML IV SCH (11:12)
[2018-10-20] MEDS: RIVAROXABAN 15 MG TABLET PO SCH (11:12)
[2018-10-20] MEDS: METOPROLOL SUCCINATE 50 MG TAB XL PO SCH (11:12)
[2018-10-20] MEDS: SIMVASTATIN 20 MG TAB PO SCH (11:12)
[2018-10-20] MEDS: CANAGLIFLOZIN 100 MG TABLET PO SCH (11:12)
[2018-10-20] MEDS: VALSARTAN 160 MG TAB PO SCH (11:12)
[2018-10-20] MEDS: AMLODIPINE BESYLATE 10 MG TAB PO SCH (11:12)
[2018-10-20] MEDS: CLOPIDOGREL BISULFATE 75 MG TAB PO SCH (11:12)
[2018-10-20] MEDS: HYDROCHLOROTHIAZIDE 25 MG TAB PO SCH (11:12)
[2018-10-20] MEDS: HYDROCODONE/APAP 10MG-325MG TAB PO PRN (11:33)
--- NOTE | 2018-10-20 11:49 | NUR ---
WOUND CARE CONSULTATION: THIS 78 YO FEMALE WAS ADMITTED FOR ANEMIA, CHF, RIGHT FOOT/GREAT TOE CELLULITIS. SHE APPEARS TO BE AAOX3. STATES SHE FELL AT HOME AND FRACTURED HER LEG. UPON ENTERING ROOM THE DRESSING AND SPLINT WAS OFF, SHE STATED "DR RAZO WAS JUST HEAR LOOKING AT MY FOOT AND IS GOING TO DO SURGERY SOON TO FIX THE BROKEN LEG". +4 PITTING EDEMA PRESENT TO RLE WITH DRY ESCHAR TO RIGHT GREAT TOE NEAR TOE NAIL MEASURING 1.5CMX1.5CM. BRUISING WITHOUT OPEN SKIN NOTED TO LOWER LEG AREA/FOOT. SPLINT PUT BACK INTO PLACE WITH LIGHT ALBERT WRAP TO HOLD. SHE HAS A RIGHT ABD CREASE OPEN SUPERFICIALLY, APPEARS TO BE MOISTURE RELATED. SEE RECOMMENDATIONS BELOW. LABS WBC 7.74 ALB 2.5 RIGHT GREAT TOE CULTURE SHOWS POSITIVE RESULTS FOR [facility]. RECOMMENDATIONS: HEEL SUSPENSION WHILE IN BED WITH PILLOWS TURN EVERY TWO HOURS WHILE IN BED RIGHT GREAT TOE- PAINT WITH BETADINE AND LEAVE OPEN TO AIR RIGHT ABDOMINAL CREASE- APPLY THIN LAYER OF VASOLEX OINTMENT DAILY RECONSULT WOUND CARE IF NEEDED POST SURGERY TO RIGHT LEG THANK YOU FOR THIS CONSULT. Addendum: 10/20/18 at 1156 by Eveline Wren RN Amended: Links added.
[2018-10-20] MEDS: BALSAM PERU/CASTOR OIL 60 GM OINT...G. TP SCH (12:45)
[2018-10-20] MEDS: FAMOTIDINE 20 MG/2 ML VIAL IV SCH (12:45)
--- NOTE | 2018-10-20 15:39 | NUR ---
IMM letter delivered and explained to pt. Se verbalized understanding. Signed copy placed in chart. Copy to pt's transition of care folder.
[2018-10-21] VITALS (8 sets, daily range): BP systolic 121–155; BP diastolic 55–86
[2018-10-21] MEDS: FAMOTIDINE 20 MG/2 ML VIAL IV SCH ×2 (00:01→12:10)
--- NOTE | 2018-10-21 03:22 | Consultation ---
DATE OF CONSULTATION: 10/20/2018 CHIEF COMPLAINT: Right ankle pain. HISTORY OF PRESENT ILLNESS: This patient is a 78-year-old female who complains of right ankle pain after suffering a fall in her home. She cannot tell me the exact date this happened, but thinks it was about a week and a half ago. She states she was taken to [facility], and was placed in a splint on the right ankle. She went home and states that she had difficulty getting up out of bed. She states she had some weakness and shortness of breath she states prior to the fall that she used a walker. She was brought into [facility] and had repeat x-rays of the right ankle. These show a distal fibula fracture and a posterior malleolar fracture and thus Orthopedics was consulted. PAST MEDICAL HISTORY: Congestive heart failure, coronary artery disease, atrial fibrillation, diabetes mellitus type 2, hypertension. PAST SURGICAL HISTORY: Cholecystectomy, left total knee arthroplasty, pacemaker. SOCIAL HISTORY: The patient states she lives with her daughter. She denies any smoking or ETOH use. MEDICATIONS: See MAR. ALLERGIES: NO KNOWN DRUG ALLERGIES. PHYSICAL EXAMINATION: GENERAL: This is a morbidly obese elderly female. She is awake, alert, and oriented appropriately. She does not appear acutely ill. EXTREMITIES: Gross inspection of her right lower extremity shows it to be in a well-padded posterior splint with stirrup. I did not remove this. There is some general mild swelling in the foot. Pedal pulses palpable. There is some bruising and erythema around the great toe. There is some dried blood around the great toe nail bed. She has onychomycosis in all her nails. Distal part of the foot is grossly sensate. IMAGING: X-rays from [facility] taken on 10/15/2018 show a mildly displaced distal fibula fracture and a mildly displaced posterior malleolus fracture. ASSESSMENT AND PLAN: This is a 78-year-old female with a right ankle fracture. The findings and options were discussed with the patient. We have recommended open reduction and internal fixation of the right ankle. The risks and benefits were explained. The increased risks given her morbid obesity and diabetes were explained. She may need to go to a half-way facility after this discharge to improve her mobility. The patient states she understands the plan and wishes to proceed. We will plan for open reduction and internal fixation of the right ankle sometime tomorrow morning. Dictated by JUANA Sanchez-Madonna MD DUSTY Carson/ADI /[id number]
[2018-10-21 05:50] LABS: BASOPHILS % 0.2 % (0.0-1.0); EOSINOPHILS # (AUTO) 0.2 (0.0-0.4); EOSINOPHILS % 2.7 % (0.0-6.0); HEMOGLOBIN 8.2 g/dL (12.0-16.0); LYMPHOCYTES # (AUTO) 0.7 (1.0-3.2); LYMPHOCYTES % 8.3 % (18.0-39.1); MEAN CORPUSCULAR HGB CONC 30.4 g/dL (31-35); MEAN CORPUSCULAR VOLUME 88.8 fL (81-99); MONOCYTES # (AUTO) 0.9 (0.2-0.8); NEUTROPHILS # (AUTO) 6.2 (2.1-6.9); NEUTROPHILS % 77.4 % (38.7-80.0); PLATELET COUNT 230 x10e3/uL (140-360); RED BLOOD COUNT 3.04 x10e6/uL (3.6-5.1); RED CELL DISTRIBUTION WIDTH 21.5 % (11.7-14.4)
[2018-10-21 06:15] LABS: ALBUMIN 2.7 g/dL (3.5-5.0); ALBUMIN/GLOBULIN RATIO 0.7 (0.8-2.0); ANION GAP 12.9 mmol/L (8-16); CALCIUM 8.8 mg/dL (8.4-10.2); CREATININE, SERUM 1.37 mg/dL (0.57-1.11); POTASSIUM 3.9 mmol/L (3.5-5.1)
--- NOTE | 2018-10-21 07:00 | NUR ---
received am report from RN, morning rounds done. Pt is sleeping comfortably, no s/s of distress. call light within reach, side rails up.
--- NOTE | 2018-10-21 08:44 | NUR ---
CM SPOKE TO PATIENT AT BEDSIDE REGARDING DISCHARGE PLAN AND PLAN OF CARE. PATIENT TO CONTINUE IV ABX FOR 7-14 DAYS. PATIENT AWARE. PATIENT INFORMED THAT THERE IS A ORDER FOR [facility] FOR [employer] [facility] REPRESENTATIVE ACUTE C[facility] PLACEMENT. PATIENT REQUESTED [facility]. PATIENT SIGNED CHOICE. PATIENT REQUESTED TO SIGN CHOICE FOR REHAB JUST IN CASE PATIENT DENIED [employer] [facility]AC[facility]. CHOICE FOR [facility] IF [facility] IS DENIED. ANDRÉS LIAISON FOR [facility] NOTIFIED. [facility] Address: [address], [place] [address] MOT INITIATED AND GIVEN TO SYSTEM SOFTWARE DEVELOPER.
[2018-10-21] MEDS: INSULIN LISPRO 100 UNIT/1 ML 3ML VIAL SQ SCH ×4 (08:45→21:48)
[2018-10-21] MEDS: CEFEPIME 1GM/NS 0.9% 50 ML 50 ML IV SCH (08:48)
[2018-10-21] MEDS: NON-FORMULARY MEDICATION (Linagliptin (Tradjenta) 5 MG) PO SCH (08:48)
[2018-10-21] MEDS: HYDRALAZINE HCL 25 MG TAB PO SCH ×3 (08:49→21:55)
[2018-10-21] MEDS: VALSARTAN 160 MG TAB PO SCH (08:49)
[2018-10-21] MEDS: AMLODIPINE BESYLATE 10 MG TAB PO SCH (08:50)
[2018-10-21] MEDS: CANAGLIFLOZIN 100 MG TABLET PO SCH (08:50)
[2018-10-21] MEDS: HYDROCHLOROTHIAZIDE 25 MG TAB PO SCH (08:50)
[2018-10-21] MEDS: PANTOPRAZOLE SOD 40 MG TABEC PO SCH (08:51)
[2018-10-21] MEDS: CLOPIDOGREL BISULFATE 75 MG TAB PO SCH (08:51)
[2018-10-21] MEDS: DIGOXIN 0.125 MG TAB PO SCH (08:51)
[2018-10-21] MEDS: RIVAROXABAN 15 MG TABLET PO SCH (08:52)
[2018-10-21] MEDS: SIMVASTATIN 20 MG TAB PO SCH (08:52)
[2018-10-21] MEDS: METOPROLOL SUCCINATE 50 MG TAB XL PO SCH (08:52)
[2018-10-21] MEDS: FUROSEMIDE INJ 10 MG/ML 4 ML VIAL IV SCH ×2 (08:58→21:55)
[2018-10-21] MEDS: BALSAM PERU/CASTOR OIL 60 GM OINT...G. TP SCH (09:01)
--- NOTE | 2018-10-21 19:10 | NUR ---
WALKING ROUNDS PERFORMED, RECEIVED PT LAYING FOWLERS IN BED, AAOX3, RR EVEN AND NON-LABORED, ON ROOM AIR. NO S/SX OF DISTRESS NOTED. LEFT PT LAYING SEMI FOWLERS IN BED, BED IN LOW LOCKED POSITION, SIDE RAILS UPX2, CALL LIGHT AND PHONE WITHIN REACH.
--- NOTE | 2018-10-21 20:00 | NUR ---
APPLIED ALTERNATING AIR PUMP TO MATTRESS.
[2018-10-21] MEDS: FAMOTIDINE 20 MG TAB PO SCH (21:48)
--- NOTE | 2018-10-21 21:48 | NUR ---
PT REFUSING TURNS, STATES SHE WILL TURN WHEN SHE IS READY, WANTS TO STAY SITTING UP FOR RIGHT NOW.
[2018-10-22 00:35] VITALS: BP 125/56
[2018-10-22] MEDS: HYDROCODONE/APAP 10MG-325MG TAB PO PRN (04:45)
[2018-10-22] MEDS: BALSAM PERU/CASTOR OIL 60 GM OINT...G. TP SCH (04:50)
--- NOTE | 2018-10-22 04:51 | NUR ---
(R) GREAT TOE CLEANSED WITH NS AND BETADINE APPLIED.
--- NOTE | 2018-10-22 06:00 | NUR ---
PUREWICK EXTERNAL CATHETER CHANGED.
[2018-10-22 06:13] VITALS: BP 114/53
--- NOTE | 2018-10-22 07:15 | NUR ---
RECEIVED PATIENT AWAKE RESTING IN BED NO SIGNS OF DISTRESS. BED LOW, WHEELS LOCKED, SIDE RAILS X2. CALL LIGHT IN REACH WILL CONTINUE TO MONITOR PATIENT.
[2018-10-22] MEDS: NON-FORMULARY MEDICATION (Linagliptin (Tradjenta) 5 MG) PO SCH (09:00)
[2018-10-22 09:06] VITALS: BP 123/59
[2018-10-22] MEDS: SIMVASTATIN 20 MG TAB PO SCH (09:25)
[2018-10-22] MEDS: PANTOPRAZOLE SOD 40 MG TABEC PO SCH (09:25)
[2018-10-22] MEDS: HYDRALAZINE HCL 25 MG TAB PO SCH ×2 (09:25→14:42)
[2018-10-22] MEDS: RIVAROXABAN 15 MG TABLET PO SCH (09:25)
[2018-10-22] MEDS: HYDROCHLOROTHIAZIDE 25 MG TAB PO SCH (09:25)
[2018-10-22] MEDS: DIGOXIN 0.125 MG TAB PO SCH (09:25)
[2018-10-22] MEDS: FAMOTIDINE 20 MG TAB PO SCH (09:25)
[2018-10-22] MEDS: FUROSEMIDE INJ 10 MG/ML 4 ML VIAL IV SCH (09:25)
[2018-10-22] MEDS: VALSARTAN 160 MG TAB PO SCH (09:25)
[2018-10-22] MEDS: METOPROLOL SUCCINATE 50 MG TAB XL PO SCH (09:25)
[2018-10-22] MEDS: AMLODIPINE BESYLATE 10 MG TAB PO SCH (09:25)
[2018-10-22] MEDS: CLOPIDOGREL BISULFATE 75 MG TAB PO SCH (09:25)
[2018-10-22] MEDS: CANAGLIFLOZIN 100 MG TABLET PO SCH (09:25)
[2018-10-22] MEDS: CEFEPIME 1GM/NS 0.9% 50 ML 50 ML IV SCH (09:27)
[2018-10-22] MEDS: INSULIN LISPRO 100 UNIT/1 ML 3ML VIAL SQ SCH ×2 (10:43→13:05)
[2018-10-22 11:37] VITALS: BP 123/59
[2018-10-22 12:32] VITALS: BP 106/51
--- NOTE | 2018-10-22 14:18 | NUR ---
CALLED REPORT TO JOSE DANIEL LIRA AT [facility].
--- NOTE | 2018-10-22 15:46 | NUR ---
DISCHARGE DISPOSITION PATENT TRANSFERRING TO [facility] [employer] ACUTE [facility] HOSPITAL: [facility] Address: [address] [place] [address] CALL REPORT: ROOM# [id number] ACCEPTING MD: DR. CHRISTINE HILL AOS: NABOR GUNTER, RN STAFF
--- NOTE | 2018-10-22 16:52 | NUR ---
PATIENT DISCHARGED FROM FACILITY. PATIENT GATHERED ALL PERSONAL BELONGINGS, DISCHARGE INSTRUCTIONS AND FOLLOW UP INFORMATION. TRANSFERRED TO [place]. LEFT UNIT IN STRETCHER WITH EMS. NO SIGNS OF DISTRESS WHEN LEAVING FACILITY.
--- NOTE | 2018-10-23 07:00 | Discharge Summary ---
DISCHARGE DIAGNOSES: 1. Right ankle fracture. 2. Wctpt-lt-nfsagfh diastolic heart failure. 3. Hypertension. 4. Diabetes. 5. Chronic kidney disease stage 3. 6. Anemia. 7. Urinary tract infection and cellulitis of the right big toe. DISPOSITION: The patient was transferred to LT for rehabilitative care. HISTORY OF PRESENT ILLNESS AND HOSPITAL COURSE: See hospital chart for full details. The patient she fell and sustained a right ankle fracture and patient was seen at [facility] as well as [facility] room and was able to be discharged, but patient was unable to take care of herself as home and therefore presented back to the emergency room with complaints of her right big toe, which showed evidence of cellulitis as well as urinary tract infection, so she was admitted for further evaluation and treatment. She had mild acute on chronic diastolic heart failure that resolved quickly. She was seen by her pan puller, Dr. Kamara, and anemia that requires transfusions for this, however, which did occur during this hospitalization, where she needed to be transfused without complications. She was seen by Orthopedics and they felt like with conservative therapy, she may heal with regard to her right ankle fracture, but if she does not improve in the next 10-14 days, they will reconsider surgery even though patient is high risk due to all her multiple comorbidities and due to her weakness and ability to take care of herself and still needing IV antibiotics for UTI as well as cellulitis and then need for therapy to build up her strength. The patient was then transferred to LT at [facility] for further care. Please see hospital chart for full details. MD SANDY Garcia/ADI /[id number]
== END 2018-10-22 16:56 | DRG 291 ==
LOC: ER 09:28 → ERHOLD 12:06 → MED/SURG2 13:51
PROVIDERS: ADMIT Internal Medicine; ATTEND Internal Medicine
DX: I13.0 Hypertensive heart and chronic kidney disease with heart failure and stage 1 through stage 4 chronic kidney disease, or unspecified chronic kidney disease (principal); I50.33 Acute on chronic diastolic (congestive) heart failure; N17.9 Acute kidney failure, unspecified; N30.00 Acute cystitis without hematuria; M80.071A Age-related osteoporosis with current pathological fracture, right ankle and foot, initial encounter for fracture; L03.031 Cellulitis of right toe; J44.9 Chronic obstructive pulmonary disease, unspecified; Z95.810 Presence of automatic (implantable) cardiac defibrillator; Z87.891 Personal history of nicotine dependence; I48.2 Chronic atrial fibrillation; D50.9 Iron deficiency anemia, unspecified; E11.65 Type 2 diabetes mellitus with hyperglycemia; R53.81 Other malaise; Z91.81 History of falling; E66.01 Morbid (severe) obesity due to excess calories; Z68.39 Body mass index [BMI] 39.0-39.9, adult; Z79.01 Long term (current) use of anticoagulants; N18.3 Chronic kidney disease, stage 3 (moderate); I87.8 Other specified disorders of veins; Z96.652 Presence of left artificial knee joint; Z79.84 Long term (current) use of oral hypoglycemic drugs
CPT/HCPCS: 36415; 71045; 80048; 80053; 80061; 81001; 82550; 82553; 82948; 83605; 83735; 83880; 84484; 85025; 85610; 85730; 87040; 87071; 87086; 87186; 87205; 93005; 99283; 99285; J0692; J1940; J3370; J7050; J7799

== ENCOUNTER 2018-12-27 19:41 | Inpatient (IN) | payer MEDICARE ==
[~2018-12-27] VITALS: Ht 162.6 cm; Wt 133.9 kg
[~2018-12-27 19:41] MED LIST changes: +AMIODARONE HCL INJ 150MG/3ML ONE; +CALCIUM CHLORIDE 10% 1.36 MEQ/ML 10ML SYR IV ONE; +EPINEPHRINE HCL SYRINGE ONE; +SODIUM BICARBONATE 8.4% 50 ML VIAL ONE; +SUCCINYLCHOLINE CHLORIDE 20 MG/ML 10ML VIAL ONE
--- NOTE | 2018-12-27 19:53 | NUR ---
gill placed with temp probe.
--- NOTE | 2018-12-27 19:55 | NUR ---
core temp reading 92.4 with gill probe
--- NOTE | 2018-12-27 20:00 | NUR ---
marichuy mcdaniel placed on patient with blankets
[2018-12-27 20:19] LABS: BASOPHILS % 0.3 % (0.0-1.0); EOSINOPHILS # (AUTO) 0.4 (0.0-0.4); HEMATOCRIT 29.4 % (34.2-44.1); HEMOGLOBIN 8.3 g/dL (12.0-16.0); LYMPHOCYTES # (AUTO) 0.5 (1.0-3.2); LYMPHOCYTES % 5.1 % (18.0-39.1); MEAN CORPUSCULAR HEMOGLOBIN 28.5 pg (28-32); MEAN CORPUSCULAR HGB CONC 28.2 g/dL (31-35); MONOCYTES # (AUTO) 0.8 (0.2-0.8); MONOCYTES % 8.5 % (4.4-11.3); NEUTROPHILS % 81.6 % (38.7-80.0); PLATELET COUNT 204 x10e3/uL (140-360); RED BLOOD COUNT 2.91 x10e6/uL (3.6-5.1); RED CELL DISTRIBUTION WIDTH 22.2 % (11.7-14.4)
[2018-12-27 20:22] LABS: CLARITY,URINE CLEAR (CLEAR); COLOR,URINE YELLOW (YELLOW)
[2018-12-27 20:23] LABS: LEUKOCYTE ESTERASE ,URINE TRACE (NEGATIVE)
[2018-12-27 20:24] LABS: BILIRUBIN,URINE NEGATIVE (NEGATIVE); KETONES,URINE NEGATIVE (NEGATIVE); NITRITE,URINE NEGATIVE (NEGATIVE); PROTEIN,URINE DIPSTICK NEGATIVE (NEGATIVE); URINE UROBILINOGEN 0.2 mg/dL (0.2 - 1)
--- NOTE | 2018-12-27 20:32 | Diagnostic Imaging Report ---
Examination: Single AP view of the chest. COMPARISON: Portable chest 10/18/2018 INDICATION: Shortness of breath IMPRESSION: Markedly limited exam due to soft tissue attenuation and patient rotation. 1. Lines and Tubes: Stable left upper chest multilead cardiac device. 2. Lungs are well-inflated. Hazy opacity in bilateral lower lobes/left retrocardiac region, with obscuration of bilateral hemidiaphragms, likely representing bilateral pleural effusions and associated lower lobe atelectasis. Mild central/perihilar interstitial opacities, likely reflecting edema edema 3. Enlarged cardiac silhouette . Central pulmonary venous congestion. 4. No acute bony abnormalities. Signed by: Dr. Manuel Orozco M.D. on 12/27/2018 8:29 PM
[2018-12-27 20:41] LABS: ALBUMIN 2.8 g/dL (3.5-5.0); ALBUMIN/GLOBULIN RATIO 0.6 (0.8-2.0); ANION GAP 14.1 mmol/L (8-16); CALCIUM 9.3 mg/dL (8.4-10.2); CREATININE, SERUM 2.46 mg/dL (0.57-1.11); POTASSIUM 5.1 mmol/L (3.5-5.1)
[2018-12-27 20:48] LABS: BACTERIA,URINE FEW /HPF; CREATINE KINASE MB 15.5 ng/mL (0-5.0); EPITHELIAL CELLS,URINE RARE /LPF; WBC,URINE (MAN) >50 /HPF (0-5)
[2018-12-27] MEDS ORDERED: CEFTRIAXONE SOD 1 GM/NS 50 ML 50 ML IV SCH (21:00)
[2018-12-27] MEDS ORDERED: FUROSEMIDE INJ 10 MG/ML 4 ML VIAL IV ONE (21:00)
--- NOTE | 2018-12-27 21:15 | NUR ---
spo2 dropped to 86% on bipap, md aware, RT notified, changed bipap to 16/10 and 100% fio2, spo2 came up to 96% abg collected and sent
[2018-12-27 21:42] LABS: ABG HCO3 27 mmol/L (23-28); ABG PCO2 58 mmHg (41-51); ABG PH 7.27 (7.31-7.41); ABG PO2 68 mmHg (80-105)
[2018-12-27] MEDS ORDERED: SODIUM CHLORIDE FLUSH 10 ML SYR INJ PRN (22:00)
[2018-12-27] MEDS ORDERED: ONDANSETRON HCL INJ 2MG/ML 2ML 2 MG/ML VIAL IV PRN (22:00)
[2018-12-27] MEDS ORDERED: DEXTROSE 50% SYRINGE 50 ML IV PRN (22:00)
[2018-12-27] MEDS ORDERED: CIPRO500 MG PO (22:10)
[2018-12-27] MEDS ORDERED: DIOVAN160 MG PO (22:10)
[2018-12-27] MEDS ORDERED: TRADJENTA5 MG PO (22:10)
[2018-12-27] MEDS ORDERED: ZINC SULFATE220 MG PO (22:10)
[2018-12-27] MEDS ORDERED: BISACODYL5 MG PO (22:10)
[2018-12-27] MEDS ORDERED: NORCO 10-325 T1 EACH PO (22:10)
[2018-12-27] MEDS ORDERED: FERROUS SULFAT325 M1 PO (22:10)
[2018-12-27] MEDS ORDERED: ZOFRAN4 MG PO (22:10)
[2018-12-27] MEDS ORDERED: LACTULOSE20 GM/30 M PO (22:10)
[2018-12-27] MEDS ORDERED: LEVEMIR100 UNIT/1 SC (22:10)
[2018-12-27] MEDS ORDERED: OS-CAL 500+D T1 EACH PO (22:10)
[2018-12-27] MEDS ORDERED: DULCOLAX SUPP10 MG RC (22:10)
[2018-12-27] MEDS ORDERED: NOVOLOG100 UNITS1 (22:10)
[2018-12-27] MEDS ORDERED: VIBRAMYCIN100 MG PO (22:10)
[2018-12-27] MEDS ORDERED: XARELTO10 MG PO (22:10)
[2018-12-27] MEDS ORDERED: MULTI-VITAMIN1 EACH PO (22:10)
[2018-12-27] MEDS ORDERED: FAMOTIDINE20 MG PO (22:10)
[2018-12-27] MEDS ORDERED: PLAVIX75 MG PO (22:10)
[2018-12-27] MEDS ORDERED: VITAMIN C500 M1 PO (22:10)
[2018-12-27] MEDS ORDERED: DOCUSATE SODIU100 MG PO (22:10)
[2018-12-27] MEDS ORDERED: DIGOXIN125 MCG PO (22:10)
[2018-12-27] MEDS ORDERED: ATORVASTATIN CA20 MG PO (22:10)
[2018-12-27] MEDS ORDERED: HYDRALAZINE HCL25 MG PO (22:10)
[2018-12-27 22:34] LABS: HYPOCHROMASIA SLIGHT; PLATELET ESTIMATE ADEQUATE; PLATELET MORPHOLOGY COMMENT NORMAL; POLYCHROMASIA FEW; RBC MORPHOLOGY COMMENT ABNORMAL
[2018-12-27 23:05] VITALS: BP 113/42
[2018-12-27 23:15] VITALS: BP 107/40
[2018-12-27 23:30] VITALS: BP 122/42
[2018-12-27 23:45] VITALS: BP 111/40
[2018-12-28] VITALS (36 sets, daily range): BP systolic 54–122; BP diastolic 27–66
[2018-12-28] MEDS ORDERED: NOVOLOG100 UNITS1 SQ (02:05)
--- NOTE | 2018-12-28 05:00 | NUR ---
Daughter arrived to visit patient and is at bedside. At this time she informed RN about some wounds that are present underneath the orthopedic boot the patient is wearing on her Rt lower leg. This was not previously documented because RN was informed that the boot needed to stay on until MD could round on her and remove it.
[2018-12-28 05:17] LABS: BASOPHILS % 0.3 % (0.0-1.0); EOSINOPHILS % 0.2 % (0.0-6.0); HEMATOCRIT 30.6 % (34.2-44.1); HEMOGLOBIN 8.5 g/dL (12.0-16.0); LYMPHOCYTES # (AUTO) 0.2 (1.0-3.2); MEAN CORPUSCULAR HEMOGLOBIN 29.2 pg (28-32); MEAN CORPUSCULAR HGB CONC 27.8 g/dL (31-35); MEAN CORPUSCULAR VOLUME 105.2 fL (81-99); MONOCYTES % 9.1 % (4.4-11.3); NEUTROPHILS # (AUTO) 9.3 (2.1-6.9); NEUTROPHILS % 88.2 % (38.7-80.0); PLATELET COUNT 207 x10e3/uL (140-360); RED BLOOD COUNT 2.91 x10e6/uL (3.6-5.1); RED CELL DISTRIBUTION WIDTH 22.5 % (11.7-14.4)
[2018-12-28 05:49] LABS: ALBUMIN 2.5 g/dL (3.5-5.0); ALBUMIN/GLOBULIN RATIO 0.6 (0.8-2.0); ANION GAP 18.6 mmol/L (8-16); CALCIUM 9.1 mg/dL (8.4-10.2); CREATININE, SERUM 2.48 mg/dL (0.57-1.11); POTASSIUM 5.6 mmol/L (3.5-5.1)
[2018-12-28] MEDS ORDERED: NOREPINEPHRINE INJ 4MG/4ML 8 MG in DEXTROSE 5% 250ML 250 ML IV PRN (06:00)
[2018-12-28] MEDS ORDERED: NOREPINEPHRINE 8 MG/D5W 250 ML 250 ML ONE (06:07)
[2018-12-28 06:30] LABS: ABG HCO3 23 mmol/L (23-28); ABG PCO2 64 mmHg (41-51); ABG PH 7.16 (7.31-7.41); ABG PO2 71 mmHg (80-105)
--- NOTE | 2018-12-28 06:30 | NUR ---
Patient BP began decreasing at 0530. Patient became lethargic and minimally responsive. Glucose was checked at 0536 via glucometer found to be 69. Patient repositioned and suctioned, Bipap in place. Dr. Sangita Gibbons @ 0550 was called and immediately spoke to regarding status. Orders obtained for an ABG and Levophed gtt. Levophed gtt was started at 0616. ABG was drawn and resulted at 0623. Dr. Alaina Gibbons was again called and spoke to immediately. He conveyed the need to intubation. At that time the rapid response team was called.
[2018-12-28] MEDS ORDERED: SODIUM CHLORIDE 0.9% 1000ML 1,000 ML ONE (06:33)
[2018-12-28 06:46] LABS: CREATINE KINASE MB 10.5 ng/mL (0-5.0)
--- NOTE | 2018-12-28 06:50 | NUR ---
Patient was intubated and connected to mechanical ventilator. At 0650 patient went into PEA and was pulseless. CPR was initiated and code team was called.
[2018-12-28] MEDS ORDERED: SODIUM BICARBONATE 8.4% SYRING 50 ML ONE ×2 (07:09→07:10)
[2018-12-28] MEDS ORDERED: EPINEPHRINE HCL SYRINGE ONE (07:20)
--- NOTE | 2018-12-28 07:29 | Diagnostic Imaging Report ---
Examination: Single AP view of the chest. COMPARISON: 12/27/2018 INDICATION: Hypoxia DISCUSSION: Lines/tubes: Endotracheal tube with tip 4 cm above the agata. Lungs: Interstitial and alveolar opacities. Pleura: Layering effusions. Heart and mediastinum: Enlarged heart. Bones and soft tissues: No acute bony abnormalities. IMPRESSION: 1. Cardiomegaly with pulmonary edema, layering effusions and atelectasis. Signed by: Dr. Jose Carlos Briggs M.D. on 12/28/2018 7:26 AM
[2018-12-28] MEDS ORDERED: INSULIN REGULAR, HUMAN 100 UNIT/1 ML 3ML VIAL SQ SCH (07:30)
[2018-12-28] MEDS ORDERED: FUROSEMIDE INJ 10 MG/ML 4 ML VIAL IV SCH (09:00)
--- NOTE | 2018-12-28 11:18 | Consultation ---
DATE OF CONSULTATION: 12/28/2018 Cardiology Consultation CHIEF COMPLAINT: The patient is a 78-year-old with cardiac arrest. HISTORY OF PRESENT ILLNESS: The patient is a 78-year-old, who was brought from the shelter to the emergency room at the [facility] with dyspnea, coughing, and low oxygen saturation. The patient was noted to be in pulmonary edema on the chest x-ray. The patient was diuresed with IV Lasix. The patient was admitted to the ICU and placed on BiPAP. The patient then stabilized and in the morning of the December, the patient became markedly hypotensive and developed respiratory distress. The patient required IV Levophed. The patient was then intubated. The patient then had a cardiac arrest and despite multiple attempts at resuscitation, the patient . PAST MEDICAL HISTORY: Significant for: 1. A longstanding history of diastolic heart failure. 2. The patient had complete heart block and had a permanent pacemaker. The patient was pacemaker dependent. 3. The patient had long-standing chronic atrial fibrillation. 4. The patient had chronic kidney disease. 5. The patient had a history of chronic obstructive pulmonary disease. SOCIAL HISTORY: The patient was living at the shelter. The patient did not smoke and did not drink. FAMILY HISTORY: There was a known family history of coronary artery disease. PHYSICAL EXAMINATION: GENERAL: The initial exam demonstrated older female with some dyspnea. VITAL SIGNS: Initial vital signs, the temperature was 96.2, blood pressure was initially about 120/70, and pulse was 60. HEAD, EARS, EYES, NOSE, AND THROAT: The patient's cranium was normocephalic and atraumatic. Extraocular muscles were intact. Sclerae were anicteric. NECK: Supple. No jugular venous distention. CHEST: Demonstrated rise bilaterally. CARDIAC: Demonstrated normal S1 and S2 with a 2/6 systolic murmur. ABDOMEN: Demonstrated good bowel sounds and no tenderness. EXTREMITIES: Two to 3+ edema bilaterally. NEUROLOGIC: The patient was somewhat confused. IMAGING: The patient's initial EKG demonstrated ventricular pacing. IMPRESSION: The patient is a 78-year-old with a cardiopulmonary arrest from the shelter, who subsequently despite multiple attempts at resuscitation. Ishmael Kamara MD [facility]/ADI /[id number] cc: Moa Gibbons MD
[2018-12-28 12:13] LABS: BAND NEUTROPHILS % (MANUAL) 7 %; LYMPHOCYTES % (MANUAL) 4 % (19-48); MONOCYTES % (MANUAL) 7 % (3.4-9.0); NEUTROPHILS % (MANUAL) 82 % (40-74); PLATELET ESTIMATE ADEQUATE
[2018-12-28 12:14] LABS: PLATELET MORPHOLOGY COMMENT NORMAL
[2018-12-28 12:15] LABS: RBC MORPHOLOGY COMMENT ABNORMAL
--- NOTE | 2018-12-28 15:50 | History and Physical ---
REASON FOR ADMISSION: 1. Respiratory distress. 2. Qubun-sv-xadzxrz diastolic heart failure. HISTORY OF PRESENT ILLNESS: The patient is a 78-year-old lady, came from a long term with complaints of one-day onset of cough and congestion, low temperature, and hypoxia. In the emergency room, she was noticed to be in respiratory distress with an x-ray showing bilateral pleural effusions and pulmonary edema, so she was placed on BiPAP and then sent to the ICU. Unfortunately, in the ICU prior to my visit, she started having a drop in her systolic blood pressures into the 60s. Repeat ABG showed worsening of her acidosis secondary to both respiratory and metabolic acidosis, so therefore she was intubated. Post intubation, the patient started to deteriorate more where she started going into further hypotensive episodes despite 30 mcg of Levophed to the point where then she had a code blue called. I spoke with the daughter at that time and she wanted everything done at that time, so she was then initiated with a code blue status. After 25 minutes, we were able to resuscitate her back with a spontaneous pulse, paced at around 60 beats per minute and blood pressure of 120s. PAST MEDICAL HISTORY: Significant for diastolic heart failure, chronic anemia, hypertension, diabetes, chronic kidney disease stage 3. MEDICATIONS: See the MAR. ALLERGIES: NONE. SOCIAL: She was living in a long term. Nondrinker, nonsmoker. FAMILY HISTORY: Hypertension. PHYSICAL EXAMINATION: VITAL SIGNS: Currently, she has temperature 96.8, pulse of 60, paced, blood pressure 126/70, saturations 98% on ventilator. GENERAL: She is nonresponsive on a ventilator. NECK: Shows some JVD. CARDIOVASCULAR: Showed regular rate and rhythm. LUNGS: Rales bilaterally with decreased breath sounds and some rhonchi bilaterally. ABDOMEN: Good bowel sounds. Soft, nontender. EXTREMITIES: 3+ edema in bilateral lower extremities. NEUROLOGIC: Not moving. ASSESSMENT/PLAN: 1. Acute respiratory failure with hypoxia. We will continue with the ventilator support and consult Pulmonary. 2. Status post code blue. I have already spoken with her primary apprentice plumber, Dr. Cason, who is on his way out. 3. Suuzu-tc-cgtewir diastolic heart failure. Continue to try to diurese, but unfortunately the patient is hypotensive and on a Levophed drip. 4. Anemia. We will continue to monitor. 5. Hyperkalemia. We will repeat labs. 6. Chronic kidney disease, stage 3. We will continue to monitor, but most likely will get worse due to the hypotension. 7. Diabetes. We will continue to monitor sugars. Please see hospital chart for full details. MD SANDY Garcia/MODL /[id number]
--- NOTE | 2018-12-28 16:55 | Discharge Summary ---
Summary. DIAGNOSES: 1. secondary to veycf-kb-agghkbl diastolic heart failure. 2. Chronic kidney disease, stage 3. 3. Diabetes. 4. Acute respiratory failure with hypoxia. HISTORY OF PRESENT ILLNESS AND HOSPITAL COURSE: See hospital chart for full details. The patient admitted with acute onset of acute respiratory failure with hypoxia secondary to her nufjl-bi-kpxqoqk diastolic heart failure and chronic kidney disease, stage 3. The patient was having to be placed on a ventilator for respiratory distress and acidosis. Unfortunately, after intubation, the patient went into a code blue status, where she underwent ACLS protocol for 25 minutes and then spontaneous rhythm was returned after multiple shocks attempt and medications, but unfortunately about 20 minutes later, the patient deteriorated again and had another code blue where she received more CPR. No shocks at this time, but did recover spontaneously, pretty quickly, but started showing a lot of neurological deficits, and I had a long discussion with the daughter, who at that point she decided no further CPR. No further care be provided since she understood that the likelihood of recovery was unlikely and that the patient was probably on a recode within minutes, which subsequently did occur, and the patient's daughter was at the bedside when she and I pronounced her at 0824 hours, where at that point she had no spontaneous breathing. She had no pulse. She had no blood pressure. She had no heart activity on cardiovascular exam. She had no corneal reflex. No gag reflex. So, the patient was then pronounced. Please see also chart for full details. MD SANDY Garcia/ADI /[id number]
== END 2018-12-28 12:34 | disposition expired | DRG 682 ==
LOC: ER 19:41 → ERHOLD 21:59 → ICU 22:54
PROVIDERS: ADMIT Internal Medicine; ATTEND Internal Medicine
PROC: 5A1935Z Respiratory Ventilation, Less than 24 Consecutive Hours (ICD-10-PCS; principal; 2018-12-28)
PROC: 0BH17EZ Insertion of Endotracheal Airway into Trachea, Via Natural or Artificial Opening (ICD-10-PCS; 2018-12-28)
PROC: 5A12012 Performance of Cardiac Output, Single, Manual (ICD-10-PCS; 2018-12-28)
PROC: 02HV33Z Insertion of Infusion Device into Superior Vena Cava, Percutaneous Approach (ICD-10-PCS; 2018-12-28)
PROC: B548ZZA Ultrasonography of Superior Vena Cava, Guidance (ICD-10-PCS; 2018-12-28)
DX: I12.9 Hypertensive chronic kidney disease with stage 1 through stage 4 chronic kidney disease, or unspecified chronic kidney disease (principal); I50.33 Acute on chronic diastolic (congestive) heart failure; J96.01 Acute respiratory failure with hypoxia; E87.4 Mixed disorder of acid-base balance; Z68.43 Body mass index [BMI] 50.0-59.9, adult; N18.3 Chronic kidney disease, stage 3 (moderate); I46.9 Cardiac arrest, cause unspecified; E11.22 Type 2 diabetes mellitus with diabetic chronic kidney disease; Z87.440 Personal history of urinary (tract) infections; I48.2 Chronic atrial fibrillation; E78.5 Hyperlipidemia, unspecified; Z95.810 Presence of automatic (implantable) cardiac defibrillator; Z90.49 Acquired absence of other specified parts of digestive tract; Z82.49 Family history of ischemic heart disease and other diseases of the circulatory system; D64.9 Anemia, unspecified; E87.5 Hyperkalemia; J44.9 Chronic obstructive pulmonary disease, unspecified; Z79.4 Long term (current) use of insulin; E66.01 Morbid (severe) obesity due to excess calories
CPT/HCPCS: 36415; 36600; 51700; 71045; 80053; 81001; 82550; 82553; 82805; 82948; 83880; 84484; 85025; 87040; 87086; 87205; 92950; 93005; 94002; 94660; 99285; J0171; J0330; J0696; J1940; J7030; J7799